=== PATIENT | male | born 1955 | race Caucasian/White ===

== ENCOUNTER 2019-02-10 07:40 | Inpatient (IN) ==
[2019-02-10 08:07] LABS: Basophils # (auto) 0.03 K/uL (0-0.2); Basophils % (auto) 0.5 %; Eosinophils # (auto) 0.08 K/uL (0-0.5); Eosinophils % (auto) 1.3 %; Hematocrit (blood only) 40.4 % (42-52); Hemoglobin 13.3 g/dL (14.0-18.0); Immature Granulocytes # (auto) 0.01 K/uL (0.00-0.02); Immature Granulocytes % (auto) 0.2 %; Lymphocytes % (auto) 25.3 %; Mean Corpuscular Hgb Conc 32.9 g/dL (32-36); Mean Corpuscular Volume 85.1 fL (80-100); Monocytes # (auto) 0.41 K/uL (0.11-0.59); Monocytes % (auto) 6.9 %; Neutrophils % (auto) 65.8 %; Platelet Count 135 K/uL (130-400); RDW Coefficient of Variation 13.7 % (11.5-14.5); Red Blood Count 4.75 M/uL (4.7-6.1); White Blood Count 5.93 K/uL (4.8-10.8)
[2019-02-10 08:24] LABS: INR 1.1 (0.9-1.1); Partial Thromboplastin Ratio 0.9; Partial Thromboplastin Time 23.6 Seconds (21.0-31.0); Prothrombin Time 11.1 Seconds (9.0-12.0)
--- NOTE | 2019-02-10 08:27 | XRay Report ---
SINGLE VIEW CHEST CLINICAL HISTORY: Dyspnea. FINDINGS: An AP, portable, upright chest radiograph is obtained. No prior studies are available for c omparison at the time of dictation. The examination is degraded by portable technique and apical lord otic positioning. The heart is enlarged and there is atherosclerotic calcification of the thoracic a mike. There is pulmonary vascular congestion. Bibasilar atelectasis is noted. No airspace consolidati on or large pleural effusion is identified. No pneumothorax is seen. The skeletal structures are oste openic. The bony thorax is grossly intact. IMPRESSION: Cardiomegaly with evidence of mild congestive failure. Electronically signed by: Abelino Marcos M.D. 02/10/2019 8:26 AM
[2019-02-10 08:31] LABS: Albumin Level 3.8 gm/dl (3.4-5.0); BUN Creatinine Ratio 12.4 (10-20); Calcium 9.7 mg/dl (8.5-10.1); Creatinine Clr Calc Pharmacy 97.5 ml/min; Est GFR (African American) 80.3; Est GFR (Non-African American) 69.3; Potassium 3.9 mmol/L (3.5-5.1)
[2019-02-10] MEDS ORDERED: dilTIAZem HCl 5 MG/ML 5 ML VIAL IV STA (08:35)
[2019-02-10 08:39] LABS: D Dimer 850 ug/L FEU (0-500)
[2019-02-10] MEDS ORDERED: ASPIRIN 81 MG CHEW PO STA (08:41)
[2019-02-10] MEDS ORDERED: dilTIAZem HCl 125 MG in DEXTROSE 5% 100 ML IV SCH (08:45)
[2019-02-10 08:46] LABS: Bilirubin,Total 0.8 mg/dl (0.2-1); Globulin 3.7 gm/dl (2.5-4.0); Total Protein 7.5 gm/dl (6.4-8.2); Troponin I 0.11 ng/ml (0-0.045)
--- NOTE | 2019-02-10 08:47 | Emergency Department Note ---
History of Present Illness General Chief complaint: Shortness of Breath/Dyspnea Stated complaint: SHORTNESS OF BREATH Time Seen by Provider: 02/10/19 07:47 History of Present Illness Maximum Pain Intensity: 1 64-year-old male who presents the emergency department with complaint of a 3-wee k history of shortness of breath, chest tightness, dizziness, nonproductive cough, diaphoresis and not feeling well. The patient reports that he had a myocardial infarction in August 2003, and did require a stent. The patient did initially follow with a meteorological technician near [place], but currently is being managed by his family doctor. He reports that he only takes his heart medicine every other day because of affordability issues. The patient does take a baby aspirin daily. Patient has other significant risk factors of smoking, hypertension and hypercholesterolemia. He also reports a strong family history of valvular heart disease. In addition to the above symptoms, the patient has also had 2 pillow orthopnea. He has not noticed any swelling of the lower extremities. The patient reports that his chest tightness illness of breath seems to help with belching. The patient currently rates his discomfort a 1 out of 10. Home Medications Home Medications Medication Instructions Recorded Confirmed Type aspirin 81 mg PO QAM 02/10/19 02/10/19 History ezetimibe 10 mg PO QAM 02/10/19 02/10/19 History metoprolol tartrate 50 mg PO QAM 02/10/19 02/10/19 History ramipril 2.5 mg PO QAM 02/10/19 02/10/19 History simvastatin 80 mg PO QAM 02/10/19 02/10/19 History tamsulosin 0.4 mg PO QAM 02/10/19 02/10/19 History Allergies Allergy/AdvReac Type Severity Reaction Status Date / Time morphine AdvReac Severe Nausea/vomi Unverified 02/10/19 14:16 ting Past Med/Surg History Medical History Coronary artery disease Hyperlipidemia Hypertension Myocardial infarction Surgical History History of heart artery stent Family History Other Heart disease Social History Preferred Language: Mauritian Communication Ability: Effective Building Equipment Operator Required: No Beliefs That Will Affect Care: None marital status: / Current Living Situation: Family Current Living Situation Comment: cares for 2 daughters, high school age, and older current occupational status: employed 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 Other Information That Helps Us Care for You: No Feels Safe at Home: Yes Safety Concerns: Feels Safe At This Time Smoking Status: Current every day smoker Tobacco Type: cigarettes packs per day: 1 Cigarettes Per Day: 20 Do You Dip or Chew Tobacco: No Second Hand Exposure: No Tobacco Cessation Education Requested by Patient: No Hx Alcohol Use: No Hx Substance Use: No Childhood Exposure to Second-Hand Smoke: No Other Diet Comment: No unexpected weight gain or weight loss during the last year during the past year weight has: remained stable Review of Systems HEENT: Denies visual problems, hearing loss, tinnitus. Denies difficulty swallowing or oral lesions. PULMONARY: Reports nonproductive cough and shortness of breath without sputum production or hemoptysis. CARDIOVASCULAR: Reports chest tightness, palpitations, mild dyspnea on exertion and orthopnea. Denies any peripheral edema. GASTROINTESTINAL: Denies diarrhea, constipation, nausea, vomiting, or abdominal pain. GENITOURINARY: Denies dysuria, frequency, urgency or nocturia. NEUROLOGIC: Denies history of epilepsy, CVA, TIA or chronic headaches. MUSCULOSKELETAL: Denies history of joint tenderness/swelling. SKIN: Denies rashes or lesions. PSYCHIATRIC: Denies history of depression or mental illness. ENDOCRINE: Denies history of diabetes or thyroid disorders. Physical Exam Vital Signs Vital Signs - 24 hr 02/10/19 07:43 02/10/19 07:54 02/10/19 07:55 Temperature 36.4 C L Temperature Source Oral Sepsis Recent Fever Within 48 Hours No Sepsis New/Unexplained Change in Mental Status No Sepsis Action Taken by Nursing No Action Required Pulse Rate 85 161 H 142 H Pulse Rate [Apical] Pulse Rate from SpO2 Sensor 98 H 86 Pulse Rhythm Pulse Rhythm [Apical] Pulse Strength [Apical] Respiratory Rate 18 17 20 Respiratory Effort / Characteristics Respiratory Depth Respiratory Pattern Blood Pressure 148/101 H 139/101 H Blood Pressure [Left Arm] Blood Pressure Mean 116 113 Blood Pressure Mean [Left Arm] Blood Pressure Position [Left Arm] Pulse Oximetry 96 94 94 Oxygen Delivery Method Room Air Oxygen Flow Rate 02/10/19 07:56 02/10/19 07:58 02/10/19 08:00 Temperature Temperature Source Sepsis Recent Fever Within 48 Hours Sepsis New/Unexplained Change in Mental Status Sepsis Action Taken by Nursing Pulse Rate 156 H 143 H Pulse Rate [Apical] 156 H Pulse Rate from SpO2 Sensor 108 H Pulse Rhythm Irregular Pulse Rhythm [Apical] Irregular Pulse Strength [Apical] Normal Respiratory Rate 18 18 20 Respiratory Effort / Characteristics Non-Labored Spontaneous Respiratory Depth Normal Respiratory Pattern Regular Blood Pressure Blood Pressure [Left Arm] 139/101 H Blood Pressure Mean Blood Pressure Mean [Left Arm] 113 Blood Pressure Position [Left Arm] Lying Pulse Oximetry 94 94 94 Oxygen Delivery Method Room Air Room Air Oxygen Flow Rate 02/10/19 08:01 02/10/19 08:15 02/10/19 08:30 Temperature Temperature Source Sepsis Recent Fever Within 48 Hours Sepsis New/Unexplained Change in Mental Status Sepsis Action Taken by Nursing Pulse Rate 142 H 128 H 141 H Pulse Rate [Apical] 142 H Pulse Rate from SpO2 Sensor 81 118 H 92 H Pulse Rhythm Pulse Rhythm [Apical] Irregular Pulse Strength [Apical] Normal Respiratory Rate 23 20 18 Respiratory Effort / Characteristics Non-Labored Spontaneous Respiratory Depth Normal Respiratory Pattern Regular Blood Pressure 135/107 H 138/101 H Blood Pressure [Left Arm] 135/107 H Blood Pressure Mean 116 113 Blood Pressure Mean [Left Arm] 116 Blood Pressure Position [Left Arm] Lying Pulse Oximetry 93 96 96 Oxygen Delivery Method Room Air Oxygen Flow Rate 02/10/19 08:43 02/10/19 08:45 02/10/19 09:01 Temperature Temperature Source Sepsis Recent Fever Within 48 Hours Sepsis New/Unexplained Change in Mental Status Sepsis Action Taken by Nursing Pulse Rate 116 H 109 H Pulse Rate [Apical] 141 H Pulse Rate from SpO2 Sensor 99 H 96 H Pulse Rhythm Pulse Rhythm [Apical] Irregular Pulse Strength [Apical] Normal Respiratory Rate 12 13 18 Respiratory Effort / Characteristics Non-Labored Spontaneous Respiratory Depth Normal Respiratory Pattern Regular Blood Pressure 119/90 Blood Pressure [Left Arm] 138/101 H Blood Pressure Mean 99 Blood Pressure Mean [Left Arm] 113 Blood Pressure Position [Left Arm] Lying Pulse Oximetry 92 92 96 Oxygen Delivery Method Room Air Oxygen Flow Rate 02/10/19 09:10 02/10/19 09:14 02/10/19 09:15 Temperature Temperature Source Sepsis Recent Fever Within 48 Hours Sepsis New/Unexplained Change in Mental Status Sepsis Action Taken by Nursing Pulse Rate 113 H 107 H 126 H Pulse Rate [Apical] Pulse Rate from SpO2 Sensor 102 H 98 H Pulse Rhythm Pulse Rhythm [Apical] Pulse Strength [Apical] Respiratory Rate 13 12 23 Respiratory Effort / Characteristics Respiratory Depth Respiratory Pattern Blood Pressure 124/97 Blood Pressure [Left Arm] Blood Pressure Mean 106 Blood Pressure Mean [Left Arm] Blood Pressure Position [Left Arm] Pulse Oximetry 92 90 Oxygen Delivery Method Oxygen Flow Rate 02/10/19 09:22 02/10/19 09:30 02/10/19 09:31 Temperature Temperature Source Sepsis Recent Fever Within 48 Hours Sepsis New/Unexplained Change in Mental Status Sepsis Action Taken by Nursing Pulse Rate 108 H 106 H 103 H Pulse Rate [Apical] Pulse Rate from SpO2 Sensor 99 H 95 H 86 Pulse Rhythm Pulse Rhythm [Apical] Pulse Strength [Apical] Respiratory Rate 19 19 14 Respiratory Effort / Characteristics Respiratory Depth Respiratory Pattern Blood Pressure 104/74 138/98 Blood Pressure [Left Arm] Blood Pressure Mean 84 111 Blood Pressure Mean [Left Arm] Blood Pressure Position [Left Arm] Pulse Oximetry 88 L 94 94 Oxygen Delivery Method Room Air Nasal Cannula Nasal Cannula Oxygen Flow Rate 2 2 02/10/19 09:36 02/10/19 09:45 02/10/19 09:46 Temperature Temperature Source Sepsis Recent Fever Within 48 Hours Sepsis New/Unexplained Change in Mental Status Sepsis Action Taken by Nursing Pulse Rate 115 H 98 H Pulse Rate [Apical] 111 H Pulse Rate from SpO2 Sensor 96 H 97 H Pulse Rhythm Pulse Rhythm [Apical] Irregular Pulse Strength [Apical] Normal Respiratory Rate 14 11 L 15 Respiratory Effort / Characteristics Non-Labored Spontaneous Respiratory Depth Normal Respiratory Pattern Regular Blood Pressure 143/108 H Blood Pressure [Left Arm] 138/98 Blood Pressure Mean 119 Blood Pressure Mean [Left Arm] 111 Blood Pressure Position [Left Arm] Lying Pulse Oximetry 94 90 90 Oxygen Delivery Method Nasal Cannula Nasal Cannula Nasal Cannula Oxygen Flow Rate 2 2 2 02/10/19 09:47 02/10/19 10:00 02/10/19 10:01 Temperature Temperature Source Sepsis Recent Fever Within 48 Hours Sepsis New/Unexplained Change in Mental Status Sepsis Action Taken by Nursing Pulse Rate 100 H 102 H 109 H Pulse Rate [Apical] Pulse Rate from SpO2 Sensor 84 97 H 95 H Pulse Rhythm Pulse Rhythm [Apical] Pulse Strength [Apical] Respiratory Rate 11 L 14 14 Respiratory Effort / Characteristics Respiratory Depth Respiratory Pattern Blood Pressure 145/103 H Blood Pressure [Left Arm] Blood Pressure Mean 117 Blood Pressure Mean [Left Arm] Blood Pressure Position [Left Arm] Pulse Oximetry 94 94 91 Oxygen Delivery Method Nasal Cannula Nasal Cannula Room Air Oxygen Flow Rate 2 2 02/10/19 10:15 02/10/19 10:16 02/10/19 10:30 Temperature Temperature Source Sepsis Recent Fever Within 48 Hours Sepsis New/Unexplained Change in Mental Status Sepsis Action Taken by Nursing Pulse Rate 111 H 119 H 89 Pulse Rate [Apical] Pulse Rate from SpO2 Sensor 86 87 85 Pulse Rhythm Pulse Rhythm [Apical] Pulse Strength [Apical] Respiratory Rate 19 12 17 Respiratory Effort / Characteristics Respiratory Depth Respiratory Pattern Blood Pressure 147/71 H Blood Pressure [Left Arm] Blood Pressure Mean 96 Blood Pressure Mean [Left Arm] Blood Pressure Position [Left Arm] Pulse Oximetry 90 94 94 Oxygen Delivery Method Room Air Room Air Room Air Oxygen Flow Rate 02/10/19 10:32 02/10/19 10:47 02/10/19 10:48 Temperature Temperature Source Sepsis Recent Fever Within 48 Hours Sepsis New/Unexplained Change in Mental Status Sepsis Action Taken by Nursing Pulse Rate 85 104 H 102 H Pulse Rate [Apical] Pulse Rate from SpO2 Sensor 78 97 H 89 Pulse Rhythm Pulse Rhythm [Apical] Pulse Strength [Apical] Respiratory Rate 7 L 18 16 Respiratory Effort / Characteristics Respiratory Depth Respiratory Pattern Blood Pressure 129/98 128/98 Blood Pressure [Left Arm] Blood Pressure Mean 108 108 Blood Pressure Mean [Left Arm] Blood Pressure Position [Left Arm] Pulse Oximetry 94 90 91 Oxygen Delivery Method Room Air Room Air Room Air Oxygen Flow Rate 02/10/19 11:01 02/10/19 11:16 02/10/19 11:31 Temperature Temperature Source Sepsis Recent Fever Within 48 Hours Sepsis New/Unexplained Change in Mental Status Sepsis Action Taken by Nursing Pulse Rate 119 H 105 H 94 H Pulse Rate [Apical] Pulse Rate from SpO2 Sensor 125 H 79 107 H Pulse Rhythm Pulse Rhythm [Apical] Pulse Strength [Apical] Respiratory Rate 24 9 L 14 Respiratory Effort / Characteristics Respiratory Depth Respiratory Pattern Blood Pressure 152/97 H 101/84 143/107 H Blood Pressure [Left Arm] Blood Pressure Mean 115 89 119 Blood Pressure Mean [Left Arm] Blood Pressure Position [Left Arm] Pulse Oximetry 92 90 94 Oxygen Delivery Method Oxygen Flow Rate 02/10/19 11:46 02/10/19 12:01 02/10/19 12:16 Temperature Temperature Source Sepsis Recent Fever Within 48 Hours Sepsis New/Unexplained Change in Mental Status Sepsis Action Taken by Nursing Pulse Rate 91 H 103 H 87 Pulse Rate [Apical] Pulse Rate from SpO2 Sensor 97 H 91 H 74 Pulse Rhythm Pulse Rhythm [Apical] Pulse Strength [Apical] Respiratory Rate 18 12 4 L Respiratory Effort / Characteristics Respiratory Depth Respiratory Pattern Blood Pressure 116/84 107/78 99/80 L Blood Pressure [Left Arm] Blood Pressure Mean 94 87 86 Blood Pressure Mean [Left Arm] Blood Pressure Position [Left Arm] Pulse Oximetry 90 86 L 92 Oxygen Delivery Method Oxygen Flow Rate 02/10/19 12:18 02/10/19 12:24 02/10/19 12:31 Temperature Temperature Source Sepsis Recent Fever Within 48 Hours Sepsis New/Unexplained Change in Mental Status Sepsis Action Taken by Nursing Pulse Rate 86 98 H Pulse Rate [Apical] 91 H Pulse Rate from SpO2 Sensor 81 85 Pulse Rhythm Pulse Rhythm [Apical] Pulse Strength [Apical] Respiratory Rate 16 10 L 15 Respiratory Effort / Characteristics Respiratory Depth Respiratory Pattern Blood Pressure 99/80 L 133/103 H Blood Pressure [Left Arm] 99/80 L Blood Pressure Mean 86 113 Blood Pressure Mean [Left Arm] 86 Blood Pressure Position [Left Arm] Pulse Oximetry 93 91 93 Oxygen Delivery Method Room Air Oxygen Flow Rate 02/10/19 12:46 02/10/19 13:00 02/10/19 13:25 Temperature 36.5 C Temperature Source Oral Sepsis Recent Fever Within 48 Hours Sepsis New/Unexplained Change in Mental Status Sepsis Action Taken by Nursing Pulse Rate 96 H 96 H Pulse Rate [Apical] 92 H Pulse Rate from SpO2 Sensor 84 Pulse Rhythm Pulse Rhythm [Apical] Regular Pulse Strength [Apical] Normal Respiratory Rate 18 18 16 Respiratory Effort / Characteristics Non-Labored Respiratory Depth Normal Respiratory Pattern Regular Blood Pressure 117/80 117/80 Blood Pressure [Left Arm] 143/95 H Blood Pressure Mean 92 Blood Pressure Mean [Left Arm] 111 Blood Pressure Position [Left Arm] Sitting Pulse Oximetry 89 L 89 L 93 Oxygen Delivery Method Room Air Room Air Oxygen Flow Rate CONSTITUTIONAL: Healthy and well nourished. Alert and oriented X 3. Patient d oes not appear in any acute distress. HEENT: Normocephalic, atraumatic. Pupils equal, round and reactive. Ears and nares are clear. No scleral icterus or conjunctival injection/pallor. NECK: Full active range of motion without discomfort. No JVD or carotid bruits. LYMPHATICS: No cervical chain adenopathy. RESPIRATORY: Clear to auscultation bilaterally with no wheezing, crackles, rhonchi or stridor. CARDIOVASCULAR: Tachycardic irregular rhythm with no murmurs, rubs or gallops. GASTROINTESTINAL: Bowel sounds present in all quadrants. Soft and nontender to palpation. MUSCULOSKELETAL: Full range of motion of all joints without discomfort. INTEGUMENTARY: No rash or other significant dermatologic conditions noted. HEMATOLOGIC: No ecchymosis or petechiae. PSYCHIATRIC: Positive affect. NEUROLOGIC: Cranial nerves II-XII grossly intact. No focal neurologic deficits noted. Course Patient history and physical exam were performed. Nurse's notes were reviewed. Vital signs were reviewed. Initial pulse in triage was 109 bpm. In his room, an ECG was performed, showing A. fib with a rapid ventricular response at 145 bpm. BP was initially elevated at 148/101. I was contacted by nursing staff. Immediate reevaluation was performed, showing that the patient's heart rate was in the 130 to lower 150s. The patient was administered aspirin 324 mg chew. The patient was also discussed and evaluated by Dr. Stauffer, ED attending physic benedict. The patient was administered a Cardizem 10 mg bolus. This reduced his heart rate to the 100s to 110s. Initial ECG did not show any ST elevations. Repeat ECG after the Cardizem bolus showed a rate of 110 bpm without any concerning ST elevation or ischemic pattern. Review of labs shows an elevated d-dimer of 850, and troponin of 0.11. Coagulation studies were otherwise normal. CMP and TSH are normal. Chest CT angiography was performed, showing no evidence for pulmonary emboli. Prior to chest CT angiography, the case was further discussed with Abelino Almanzar PA-C working with Dr. Luis Leung, not in any physician group hospitalist. Pending CT angiography results, the patient will likely be started on a heparin drip weight-based protocol, and undergo cardiology consultation. Please see dictations for further treatment and final disposition. Prior to transfer of care, the patient denied any chest pain, shortness of breath or other concerning symptoms. Administered Medications Aspirin (Ecotrin Ectab) 81 mg PO QAM REPLACED BY [facility] Stop: 03/12/19 14:59 Last Admin: 02/10/19 16:14 Dose: 81 mg Documented by: [id number] Enalapril Maleate (Vasotec) 10 mg PO DAILY REPLACED BY [facility] Stop: 03/12/19 14:59 Last Admin: 02/10/19 16:14 Dose: 10 mg Documented by: [id number] Heparin Sodium/Dextrose (Heparin Sodium/Dextrose) 25,000 units in 500 mls @ 37 mls/hr IV .[id number] REPLACED BY [facility]; Protocol Stop: 03/12/19 14:44 Last Admin: 02/10/19 14:40 Dose: 1,850 units/hr, 37 mls/hr Documented by: [id number] Cosigned by: [id number] Metoprolol Tartrate (Lopressor) 25 mg PO Q8 NIKO Stop: 03/12/19 15:29 Last Admin: 02/10/19 17:08 Dose: 25 mg Documented by: [id number] Tamsulosin HCl (Flomax) 0.4 mg PO QAM REPLACED BY [facility] Stop: 03/12/19 14:59 Last Admin: 02/10/19 16:15 Dose: 0.4 mg Documented by: [id number] Discontinued Medications Aspirin (Aspirin Chew) 324 mg PO NOW STA Stop: 02/10/19 08:42 Last Admin: 02/10/19 08:43 Dose: 324 mg Documented by: [id number] Diltiazem HCl (Cardizem) 20 mg IV NOW STA Stop: 02/10/19 08:36 Last Admin: 02/10/19 08:41 Dose: 20 mg Documented by: [id number] Cosigned by: [id number] Ezetimibe (Zetia) 10 mg PO QAM REPLACED BY [facility] Stop: 03/12/19 14:59 Last Admin: 02/10/19 16:49 Dose: Not Given Documented by: [id number] Diltiazem HCl 125 mg/ Dextrose 125 mls @ 5 mls/hr IV .Q24H REPLACED BY [facility]; Protocol Stop: 03/12/19 08:44 Last Titration: 02/10/19 17:15 Dose: 0 mg/hr, 0 mls/hr Documented by: [id number] Admin: 02/10/19 09:20 Dose: 5 mg/hr, 5 mls/hr Documented by: [id number] Cosigned by: [id number] Furosemide 40 mg/ Syringe 4 mls @ 4 mls/min IV ONE ONE Stop: 02/10/19 16:16 Last Admin: 02/10/19 17:08 Dose: 4 mls/min Documented by: [id number] Ioversol (Optiray 320 100ml) 119 ml IV ONCE PRN PRN Reason: Interaction Checking Stop: 02/14/19 09:01 Last Admin: 02/10/19 09:02 Dose: 119 ml Documented by: [id number] Metoprolol Tartrate (Lopressor) 50 mg PO [facility] Stop: 03/12/19 14:59 Last Admin: 02/10/19 15:55 Dose: Not Given Documented by: [id number] Simvastatin (Zocor) 80 mg PO [facility] Stop: 03/12/19 14:59 Last Admin: 02/10/19 16:49 Dose: Not Given Documented by: [id number] Medical Decision Making Medical Records Attestation: I reviewed the patient's medical records. Home Medications Current Medication List: was personally reviewed by me Laboratory Data Attestation: I reviewed the patient's lab results. Result diagrams: 02/10/19 07:50 02/10/19 07:50 Lab Results 02/10/19 02/10/19 02/10/19 Range/Units 07:50 07:50 07:50 WBC 5.93 (4.8-10.8) K/uL RBC 4.75 (4.7-6.1) M/uL Hgb 13.3 L (14.0-18.0) g/dL Hct 40.4 L (42-52) % MCV 85.1 (80-100) fL MCH 28.0 (25-34) pg MCHC 32.9 (32-36) g/dL RDW Std Deviation 42.0 (36.4-46.3) fL RDW Coeff of Micheal 13.7 (11.5-14.5) % Plt Count 135 (130-400) K/uL MPV 10.0 (7.4-10.4) fL Immature Gran % (Auto) 0.2 % Neut % (Auto) 65.8 % Lymph % (Auto) 25.3 % Atkinson % (Auto) 6.9 % Eos % (Auto) 1.3 % Baso % (Auto) 0.5 % Immature Gran # (Auto) 0.01 (0.00-0.02) K/uL Neut # (Auto) 3.90 (1.4-6.5) K/uL Lymph # (Auto) 1.50 (1.2-3.4) K/uL Atkinson # (Auto) 0.41 (0.11-0.59) K/uL Eos # (Auto) 0.08 (0-0.5) K/uL Baso # (Auto) 0.03 (0-0.2) K/uL PT 11.1 (9.0-12.0) Seconds INR 1.1 (0.9-1.1) APTT 23.6 (21.0-31.0) Seconds PTT Ratio 0.9 D-Dimer 850 H* (0-500) ug/L FEU Sodium 141 (136-145) mmol/L Potassium 3.9 (3.5-5.1) mmol/L Chloride 106 (98-107) mmol/L Carbon Dioxide 29 (21-32) mmol/L Anion Gap 6.0 (3-11) BUN 14 (7-18) mg/dl Creatinine 1.13 (0.6-1.4) mg/dl Est Cr Clr Drug Dosing 97.5 ml/min Est GFR ( Amer) 80.3 Est GFR (Non-Af Amer) 69.3 BUN/Creatinine Ratio 12.4 (10-20) Glucose 115 H (70-99) mg/dl Estimat Average Glucose mg/dl Hemoglobin A1c (4.5-5.6) % Calcium 9.7 (8.5-10.1) mg/dl Magnesium 2.0 (1.8-2.4) mg/dl Total Bilirubin 0.8 (0.2-1) mg/dl AST 29 (15-37) U/L ALT 42 (12-78) U/L Alkaline Phosphatase 77 (45-117) U/L Troponin I 0.110 H* (0-0.045) ng/ml NT-Pro-B Natriuret Pep (0-900) pg/ml Total Protein 7.5 (6.4-8.2) gm/dl Albumin 3.8 (3.4-5.0) gm/dl Globulin 3.7 (2.5-4.0) gm/dl Albumin/Globulin Ratio 1.0 (0.9-2) Triglycerides Cholesterol LDL Cholesterol, Calc VLDL Cholesterol, Calc HDL Cholesterol Cholesterol/HDL Ratio TSH 3.800 (0.300-4.500) uIu/ml 02/10/19 02/10/19 02/10/19 Range/Units 07:50 07:50 07:50 WBC (4.8-10.8) K/uL RBC (4.7-6.1) M/uL Hgb (14.0-18.0) g/dL Hct (42-52) % MCV (80-100) fL MCH (25-34) pg MCHC (32-36) g/dL RDW Std Deviation (36.4-46.3) fL RDW Coeff of Micheal (11.5-14.5) % Plt Count (130-400) K/uL MPV (7.4-10.4) fL Immature Gran % (Auto) % Neut % (Auto) % Lymph % (Auto) % Atkinson % (Auto) % Eos % (Auto) % Baso % (Auto) % Immature Gran # (Auto) (0.00-0.02) K/uL Neut # (Auto) (1.4-6.5) K/uL Lymph # (Auto) (1.2-3.4) K/uL Atkinson # (Auto) (0.11-0.59) K/uL Eos # (Auto) (0-0.5) K/uL Baso # (Auto) (0-0.2) K/uL PT (9.0-12.0) Seconds INR (0.9-1.1) APTT (21.0-31.0) Seconds PTT Ratio D-Dimer (0-500) ug/L FEU Sodium (136-145) mmol/L Potassium (3.5-5.1) mmol/L Chloride (98-107) mmol/L Carbon Dioxide (21-32) mmol/L Anion Gap (3-11) BUN (7-18) mg/dl Creatinine (0.6-1.4) mg/dl Est Cr Clr Drug Dosing ml/min Est GFR ( Amer) Est GFR (Non-Af Amer) BUN/Creatinine Ratio (10-20) Glucose (70-99) mg/dl Estimat Average Glucose 137 mg/dl Hemoglobin A1c 6.4 H (4.5-5.6) % Calcium (8.5-10.1) mg/dl Magnesium (1.8-2.4) mg/dl Total Bilirubin (0.2-1) mg/dl AST (15-37) U/L ALT (12-78) U/L Alkaline Phosphatase (45-117) U/L Troponin I (0-0.045) ng/ml NT-Pro-B Natriuret Pep 1201 H (0-900) pg/ml Total Protein (6.4-8.2) gm/dl Albumin (3.4-5.0) gm/dl Globulin (2.5-4.0) gm/dl Albumin/Globulin Ratio (0.9-2) Triglycerides Cancelled Cholesterol Cancelled LDL Cholesterol, Calc Cancelled VLDL Cholesterol, Calc Cancelled HDL Cholesterol Cancelled Cholesterol/HDL Ratio Cancelled TSH (0.300-4.500) uIu/ml Imaging Data Attestation: I personally reviewed and interpreted this imaging study as follows: My Impression: My interpretation of an initial portable chest x-ray shows cardiomegaly with mild congestive failure. No consolidations or pneumothorax appreciated. Chest CT angiography of the chest shows no evidence for pulmonary emboli. Additional findings of cardiomegaly with congestive heart failure, lateral pleural effusions, small pericardial effusion and mild mediastinal and hilar lymphadenopathy were also seen. Radiologist reports were reviewed. Radiologist's Impression: SINGLE VIEW CHEST CLINICAL HISTORY: Dyspnea. FINDINGS: An AP, portable, upright chest radiograph is obtained. No prior studies are available for comparison at the time of dictation. The examination is degraded by portable technique and apical lordotic positioning. The heart is enlarged and there is atherosclerotic calcification of the thoracic aorta. There is pulmonary vascular congestion. Bibasilar atelectasis is noted. No airspace consolidation or large pleural effusion is identified. No pneumothorax is seen. The skeletal structures are osteopenic. The bony thorax is grossly intact. IMPRESSION: Cardiomegaly with evidence of mild congestive failure. CT ANGIOGRAM OF THE CHEST CLINICAL HISTORY: Atrial fibrillation with rapid ventricular return. Elevated d- dimer. COMPARISON STUDY: Chest x-ray dated 02/10/2019. TECHNIQUE: Following the IV administration of 119 cc of Optiray 320, CT angiogram of the chest was performed from the upper abdomen to the thoracic inlet utilizing the pulmonary embolus protocol. Images are reviewed in the axial, sagittal, and coronal planes. 3-D MIPS images are created and assessed. IV contrast was administered without complication. A dose lowering technique was utilized adhering to the principles of ALARA. CT DOSE: 926.14 mGy.cm FINDINGS: Thyroid: Imaged portions of the thyroid gland are normal in size and attenuation. Thoracic aorta: The thoracic aorta is normal in caliber and demonstrates standard 3-vessel arch anatomy. The thoracic aorta is not well opacified. Pulmonary vasculature: The pulmonary trunk is normal in caliber. There are no filling defects identified in main, lobar, or segmental pulmonary branches to suggest pulmonary embolus. Heart: The heart is enlarged and there is a small pericardial effusion. The coronary arteries are densely calcified. Lungs and pleural spaces: There are small pleural effusions, right larger than left with associated atelectasis. There is mild diffuse peribronchial thickening, as well as diffuse intralobular septal thickening. These findings indicate congestive failure. The trachea and central airways are clear. No airspace consolidation is seen typical for pneumonia. Mediastinum: There are numerous mildly enlarged mediastinal lymph nodes. Peritracheal nodes measure up to 13 mm in short axis. A subcarinal node measures up to 15 mm in short axis. Starr: There are prominent hilar lymph nodes which measure up to 12 mm in short axis. Axillae: There is no axillary lymphadenopathy. Upper abdomen: Partially visualized upper abdominal viscera is within normal limits. Skeletal structures: The skeletal structures are osteopenic. Mild degenerative change is noted throughout the thoracic spine. No lytic or blastic bony lesions are seen. IMPRESSION: 1. There is no evidence of pulmonary embolus in the main, lobar, or segmental pulmonary arteries. 2. Cardiomegaly with evidence of congestive failure. 3. Right larger than left pleural effusions with associated atelectasis. 4. Mildly enlarged mediastinal and hilar lymph nodes are nonspecific and likely on a reactive basis. 5. Small pericardial effusion. ECG Data Attestation: I personally reviewed and interpreted this ECG as follows: Indication: chest pain, SOB/dyspnea and weakness Rate (beats per minute): 145 Rhythm: atrial fibrillation Findings: + other (Rapid ventricular response) Comparison ECG Date: no prior available Additional Comments: Repeat ECG after the Cardizem 10 mg bolus showed an improved rate of [address] elevations or T wave inversions. Blood Pressure Blood Pressure Findings: Elevated blood pressure (Subsequent blood pressure measurements did normalize) MDM Narrative Patient presents to the emergency department with complaint of chest tightness, shortness of breath and fatigue. His ECG does show evidence for new onset A. fib with RVR pattern. The patient was treated emergently with diltiazem with improvement of his rate and symptoms. Additional work-up shows evidence for elevated troponin and d-dimer. Fortunately chest CT angiography did not show evidence for pulmonary emboli, but imaging is consistent with mild pericardial effusion, congestive heart failure and mediastinal lymphadenopathy. The patient was previously on intermittent beta-blockers, but has not taken them on a regular basis. The patient did go PCI and 2004 during an acute AK, however those details are not available for review. I sSuspect that the patient will require cardiac catheterization while in the hospital. Patient does have other risk factors including hyperlipidemia, hypertension and tobacco abuse. Impression & Plan Atrial fibrillation with RVR, Acute systolic (congestive) heart failure, CAD (coronary artery disease), Cardiomyopathy, Hypertension, Hyperlipidemia, Tobacco abuse Critical Care Time Critical Care Time: Yes Total Critical Care Time: 35 I have personally possibly 35 minutes of critical care time in the direct management of this patient, including during administration of Cardizem IV. This includes bedside care, interpretation of diagnostic studies, and testing, discussion with consultants, patient, and other required patient management activities. This 35 minutes is in excess of all separately billable procedures. Discharge Plan Visit Data *Final* Discharge Date/Time: 02/10/19 13:00 Chief Complaint: Shortness of Breath/Dyspnea Stated Complaint: SHORTNESS OF BREATH ED Provider: Aj Stauffer ED Midlevel Provider: Juventino Holland Discharge Problem: Atrial fibrillation with RVR, Acute systolic (congestive) heart failure, CAD (coronary artery disease), Cardiomyopathy, Hypertension, Hyperlipidemia, Tobacco abuse Patient Disposition: Admitted As Inpatient Discharge Instructions Interventions: ED Discharge Assessment Last Done: 02/10/19 13:00
[2019-02-10] MEDS ORDERED: IOVERSOL 100ml IV PRN (09:02)
--- NOTE | 2019-02-10 09:17 | CT Scan Report ---
CT ANGIOGRAM OF THE CHEST CLINICAL HISTORY: Atrial fibrillation with rapid ventricular return. Elevated d-dimer. COMPARISON STUDY: Chest x-ray dated 02/10/2019. TECHNIQUE: Following the IV administration of 119 cc of Optiray 320, CT angiogram of the chest was pe rformed from the upper abdomen to the thoracic inlet utilizing the pulmonary embolus protocol. Images are reviewed in the axial, sagittal, and coronal planes. 3-D MIPS images are created and assessed. I V contrast was administered without complication. A dose lowering technique was utilized adhering to the principles of ALARA. CT DOSE: 926.14 mGy.cm FINDINGS: Thyroid: Imaged portions of the thyroid gland are normal in size and attenuation. Thoracic aorta: The thoracic aorta is normal in caliber and demonstrates standard 3-vessel arch anato my. The thoracic aorta is not well opacified. Pulmonary vasculature: The pulmonary trunk is normal in caliber. There are no filling defects identif ied in main, lobar, or segmental pulmonary branches to suggest pulmonary embolus. Heart: The heart is enlarged and there is a small pericardial effusion. The coronary arteries are den sely calcified. Lungs and pleural spaces: There are small pleural effusions, right larger than left with associated a telectasis. There is mild diffuse peribronchial thickening, as well as diffuse intralobular septal th ickening. These findings indicate congestive failure. The trachea and central airways are clear. No a irspace consolidation is seen typical for pneumonia. Mediastinum: There are numerous mildly enlarged mediastinal lymph nodes. Peritracheal nodes measure u p to 13 mm in short axis. A subcarinal node measures up to 15 mm in short axis. Starr: There are prominent hilar lymph nodes which measure up to 12 mm in short axis. Axillae: There is no axillary lymphadenopathy. Upper abdomen: Partially visualized upper abdominal viscera is within normal limits. Skeletal structures: The skeletal structures are osteopenic. Mild degenerative change is noted throug hout the thoracic spine. No lytic or blastic bony lesions are seen. IMPRESSION: 1. There is no evidence of pulmonary embolus in the main, lobar, or segmental pulmonary arteries. 2. Cardiomegaly with evidence of congestive failure. 3. Right larger than left pleural effusions with associated atelectasis. 4. Mildly enlarged mediastinal and hilar lymph nodes are nonspecific and likely on a reactive basis. 5. Small pericardial effusion. Electronically signed by: Abelino Marcos M.D. 02/10/2019 9:16 AM
--- NOTE | 2019-02-10 12:01 | History & Physical Report ---
Date of Service February 10, 2019 Assessment & Plan (1) Atrial fibrillation with RVR: New onset atrial fibrillation with RVR Received 10 mg of diltiazem in the ER Will start patient's home medication of metoprolol 50 mg p.o. twice daily Heparin drip weight-based protocol Echocardiogram Cardiology consult -appreciate Dr. Buckley's input Monitor on telemetry (2) CAD (coronary artery disease): Prior history of NH with stent years ago Patient reports previous stress echo cardiogram with chemical challenge with no induced ischemia per his report Continue aspirin, metoprolol, statin, ezetimibe Monitor on telemetry (3) Hyperlipidemia: Continue home dose medication was admitted and atorvastatin Fasting lipid panel (4) Hypertension: Continue metoprolol tartrate 50 mg p.o. daily Monitor on telemetry (5) Morbid obesity: Weight 130.9 kg BMI 37.1 kg/m Discussed need for weight loss (6) Tobacco abuse: Per day smoker Smoking cessation consult placed (7) BPH (benign prostatic hyperplasia): Continue tamsulosin daily (8) DVT prophylaxis: Heparin drip weight-based protocol Ambulate as tolerated on telemetry Discussed case with Dr. Luis Leung. Please refer to his addendum for further recommendations. History of Present Illness Attending: Dr. Luis Leung This is a 64-year-old male who works at [employer]. He has a past medical history including previous NH with stent placement x1 vessel. He also has hyperlipidemia, BPH, morbid obesity. He follows with [facility] in [place]. He previously followed with cardiology after his stent placement in [facility] but due to multiple position changes only follows with his primary care physician. He is on aspirin, metoprolol, ezetimibe, atorvastatin, and tamsulosin which is scheduled for daily but patient takes every other day secondary to cost issues. The patient has a care through [facility]. The patient states that for the last 2-1/2 to 3 weeks he has had increasing shortness of breath with minimal exertion as well as some lightheadedness. He recently went to [facility] for an employee picnic and was significantly short of breath with walking only about 40 feet. He has no recent work-up in his last prior PCP appointment was in August of this year. He states that prior to that he had echocardiogram which was normal. He also states that he had a treadmill stress test but was unable to meet Jose protocol. He then had a chemical stress test which he reports was normal. He has had no chest pain with exertion or at rest. He is unaware of any palpitations or tachyarrhythmias. He has no prior history of arrhythmia. He has no family with history of arrhythmia. He denies any history of malignancy or other cardiac disease. He has no pulmonary disease. He has no recent travel or recent illness. He is a daily smoker and smokes approximately 1 pack/day of cigarettes. He has no ethanol use or other substance abuse. Primary Care Provider: Wilman Beach PA-C Allergies Allergy/AdvReac Type Severity Reaction Status Date / Time morphine AdvReac Severe Nausea/vomi Unverified 02/10/19 14:16 ting Home Medications Home Medications Medication Instructions Recorded Confirmed Type aspirin 81 mg PO QAM 02/10/19 02/10/19 History ezetimibe 10 mg PO QAM 02/10/19 02/10/19 History metoprolol tartrate 50 mg PO QAM 02/10/19 02/10/19 History ramipril 2.5 mg PO QAM 02/10/19 02/10/19 History simvastatin 80 mg PO QAM 02/10/19 02/10/19 History tamsulosin 0.4 mg PO QAM 02/10/19 02/10/19 History Past Med/Surg History Medical History Coronary artery disease Hyperlipidemia Hypertension Myocardial infarction Surgical History History of heart artery stent Family History Other Heart disease Social History Preferred Language: Nepali Communication Ability: Effective Tack Cutter Required: No Beliefs That Will Affect Care: None marital status: / Current Living Situation: Family Current Living Situation Comment: cares for 2 daughters, high school age, and older current occupational status: employed 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 Other Information That Helps Us Care for You: No Feels Safe at Home: Yes Safety Concerns: Feels Safe At This Time Smoking Status: Current every day smoker Tobacco Type: cigarettes packs per day: 1 Cigarettes Per Day: 20 Do You Dip or Chew Tobacco: No Second Hand Exposure: No Tobacco Cessation Education Requested by Patient: No Hx Alcohol Use: No Hx Substance Use: No Childhood Exposure to Second-Hand Smoke: No Other Diet Comment: No unexpected weight gain or weight loss during the last year during the past year weight has: remained stable Review of Systems Review of Systems: All systems reviewed & are unremarkable except as noted in HPI & below Physical Exam Physical Exam: GENERAL : No acute distress EYES: No icterus, gaze conjugate NOSE: No evidence of epistaxis MOUTH: No lesions or candidiasis NECK: Supple LUNGS: CTA B/L, no wheezes, rales or rhonchi CHEST: No tenderness to palpation. No ecchymosis or bruising. No paradoxical chest wall movement. HEART: Irregular, irregular, rate 102 ABDOMEN: Soft, NT, ND, BS Present. Protuberant EXTREMITIES: No LE edema, pedal pulses intact. No calf tenderness. No Homans sign NEURO: A&OX3. Pupils equal round and reactive to light. Strength equal and appropriate bilateral upper extremities. Toes downgoing bilaterally. No slurred speech. No facial droop. Tongue is midline. Results & Data Vital Signs (Past 12 Hours) Vital Signs Temp Pulse Pulse Resp BP BP Pulse Ox 02/10/19 11:31 94 H 14 143/107 H 94 02/10/19 11:16 105 H 9 L 101/84 90 02/10/19 11:01 119 H 24 152/97 H 92 02/10/19 10:48 102 H 16 128/98 91 02/10/19 10:47 104 H 18 90 02/10/19 10:32 85 7 L 129/98 94 02/10/19 10:30 89 17 94 02/10/19 10:16 119 H 12 147/71 H 94 02/10/19 10:15 111 H 19 90 02/10/19 10:01 109 H 14 145/103 H 91 02/10/19 10:00 102 H 14 94 02/10/19 09:47 100 H 11 L 94 02/10/19 09:46 98 H 15 143/108 H 90 02/10/19 09:45 115 H 11 L 90 02/10/19 09:36 111 H 14 138/98 94 02/10/19 09:31 103 H 14 138/98 94 02/10/19 09:30 106 H 19 94 02/10/19 09:22 108 H 19 104/74 88 L 02/10/19 09:15 126 H 23 90 02/10/19 09:14 107 H 12 124/97 92 02/10/19 09:10 113 H 13 02/10/19 09:01 141 H 18 138/101 H 96 02/10/19 08:45 109 H 13 92 02/10/19 08:43 116 H 12 119/90 92 02/10/19 08:30 141 H 18 138/101 H 96 02/10/19 08:15 128 H 20 96 02/10/19 08:01 142 H 142 H 23 135/107 H 135/107 H 93 02/10/19 08:00 143 H 20 94 02/10/19 07:58 156 H 18 94 02/10/19 07:56 156 H 18 139/101 H 94 02/10/19 07:55 142 H 20 139/101 H 94 02/10/19 07:54 161 H 17 94 02/10/19 07:43 36.4 C L 85 18 148/101 H 96 Laboratory Results 02/10/19 07:50 02/10/19 07:50 Abnormal lab results 02/10/19 02/10/19 02/10/19 Range/Units 07:50 07:50 07:50 Hgb 13.3 L (14.0-18.0) g/dL Hct 40.4 L (42-52) % D-Dimer 850 H* (0-500) ug/L FEU Glucose 115 H (70-99) mg/dl Troponin I 0.110 H* (0-0.045) ng/ml NT-Pro-B Natriuret Pep (0-900) pg/ml 02/10/19 Range/Units 07:50 Hgb (14.0-18.0) g/dL Hct (42-52) % D-Dimer (0-500) ug/L FEU Glucose (70-99) mg/dl Troponin I (0-0.045) ng/ml NT-Pro-B Natriuret Pep 1201 H (0-900) pg/ml Diagnostic Findings CT ANGIOGRAM OF THE CHEST CLINICAL HISTORY: Atrial fibrillation with rapid ventricular return. Elevated d- dimer. COMPARISON STUDY: Chest x-ray dated 02/10/2019. TECHNIQUE: Following the IV administration of 119 cc of Optiray 320, CT angiogram of the chest was performed from the upper abdomen to the thoracic inlet utilizing the pulmonary embolus protocol. Images are reviewed in the axial, sagittal, and coronal planes. 3-D MIPS images are created and assessed. IV contrast was administered without complication. A dose lowering technique was utilized adhering to the principles of ALARA. CT DOSE: 926.14 mGy.cm FINDINGS: Thyroid: Imaged portions of the thyroid gland are normal in size and attenuation. Thoracic aorta: The thoracic aorta is normal in caliber and demonstrates standard 3-vessel arch anatomy. The thoracic aorta is not well opacified. Pulmonary vasculature: The pulmonary trunk is normal in caliber. There are no filling defects identified in main, lobar, or segmental pulmonary branches to suggest pulmonary embolus. Heart: The heart is enlarged and there is a small pericardial effusion. The coronary arteries are densely calcified. Lungs and pleural spaces: There are small pleural effusions, right larger than left with associated atelectasis. There is mild diffuse peribronchial thickening, as well as diffuse intralobular septal thickening. These findings indicate congestive failure. The trachea and central airways are clear. No airsp ritchie consolidation is seen typical for pneumonia. Mediastinum: There are numerous mildly enlarged mediastinal lymph nodes. Peritracheal nodes measure up to 13 mm in short axis. A subcarinal node measures up to 15 mm in short axis. Starr: There are prominent hilar lymph nodes which measure up to 12 mm in short axis. Axillae: There is no axillary lymphadenopathy. Upper abdomen: Partially visualized upper abdominal viscera is within normal limits. Skeletal structures: The skeletal structures are osteopenic. Mild degenerative change is noted throughout the thoracic spine. No lytic or blastic bony lesions are seen. IMPRESSION: 1. There is no evidence of pulmonary embolus in the main, lobar, or segmental pulmonary arteries. 2. Cardiomegaly with evidence of congestive failure. 3. Right larger than left pleural effusions with associated atelectasis. 4. Mildly enlarged mediastinal and hilar lymph nodes are nonspecific and likely on a reactive basis. 5. Small pericardial effusion. Electronically signed by: Abelino Marcos M.D. 02/10/2019 9:16 AM Medications Administered Cardizem 10 mg Heparin drip ECG Additional Comments: ECG 10-Feb-2019 Vent. rate 110 BPM MN interval * ms QRS duration 98 ms QT/QTc 326/441 ms P-R-T axes * 59 -13 Atrial fibrillation with rapid ventricular response with premature ventricular or aberrantly conducted complexes Possible Inferior infarct (cited on or before 10-FEB-2019) Abnormal ECG When compared with ECG of 10-FEB-2019 07:51, (unconfirmed) No significant change was found Code Status & VTE Plan Code Status Level 1 full resuscitation VTE Prophylaxis Plan VTE Prophylaxis will be ordered: Yes Reason for no VTE mechanical prophylaxis: Treatment not indicated Supervising Physician Co-Signing Physician Notes I supervised Abelino Almanzar PA-C on this admission. I interviewed and examined the patient independently of him. The plan is as written in the note except for any following changes/exceptions: Seen with Dr. Rachel. Concern for acute systolic heart failure. Will treat rate with beta-jordan. Plan for diuresis and possible cath tomorrow if he is able to tolerate lying flat. PG Care Time/CCT Total # of Minutes Spent Total Time Spent with Patient: Total time spent is greater than 50% in coordination of care (as documented) at patient's floor/unit and/or counseling patient:
[2019-02-10 12:42] LABS: Estimated Average Glucose 137 mg/dl; Hemoglobin A1C 6.4 % (4.5-5.6)
[2019-02-10] MEDS ORDERED: ACETAMINOPHEN 325 MG TAB PO PRN (14:08)
[2019-02-10] MEDS ORDERED: ALUMINUM/MAGNESIUM SUSP 30 ML UDC PO PRN (14:08)
[2019-02-10] MEDS ORDERED: MAGNESIUM HYDROXIDE SUSP 30 ML UDC PO PRN (14:08)
[2019-02-10] MEDS ORDERED: NITROGLYCERIN SL 0.4 MG/TAB TAB SL PRN (14:08)
[2019-02-10] MEDS ORDERED: POLYETHYLENE (MIRALAX) 17 GM PACK PO PRN (14:08)
[2019-02-10] MEDS ORDERED: ONDANSETRON INJ 2 MG/ML 2 ML VIAL IV PRN (14:08)
[2019-02-10] MEDS ORDERED: Heparin IV Standard *NO* Bolus IV SCH (14:30)
[2019-02-10] MEDS: HEPARIN SODIUM/DEXTROSE 25,000 UNITS/500 ML BAG IV SCH (14:40)
[2019-02-10] MEDS ORDERED: EZETIMIBE 10 MG TABLET PO SCH (15:00)
[2019-02-10] MEDS ORDERED: SIMVASTATIN 80 MG TAB PO SCH (15:00)
[2019-02-10] MEDS ORDERED: METOPROLOL TARTRATE 50 MG TAB PO SCH (15:00)
[2019-02-10] MEDS: ENALAPRIL MALEATE 10 MG TAB PO SCH (16:14)
[2019-02-10] MEDS: ASPIRIN 81 MG ECTAB PO SCH (16:14)
[2019-02-10] MEDS: TAMSULOSIN HCL 0.4 MG CAP PO SCH (16:15)
[2019-02-10] MEDS ORDERED: FUROSEMIDE 40 MG in SYRINGE 0 ML IV ONE (16:15)
--- NOTE | 2019-02-10 16:16 | Cardiology Consultation ---
Date of Consultation February 10, 2019 Assessment & Plan (1) Atrial fibrillation with RVR: New diagnosis for him. We discussed the diagnosis in detail. His heart rate has been better controlled with beta-jordan. Agree with oral beta-jordan for now. We discussed the importance of taking his medications on a daily basis. He was adamant about not receiving cardioversion. We discussed importance of stroke risk reduction. Finances are a concern. Please involved care coordination to help choose anticoagulation that is affordable for him. For now, continue heparin drip. (2) Acute systolic (congestive) heart failure: He appears hypervolemic, with class 4 symptoms. Reduced LV systolic function on echo with formal review to follow. Would recommend metoprolol succinate in place of metoprolol tartrate upon discharge. Agree with AZAEL-inhibi tor. Would not likely use Entresto due to financial concerns as he was not able to afford his medications on a regular basis prior to this hospitalization. Recommend Lasix 40 mg IV x1. Would Re dose if he is not trending towards 1-2 L negative by morning. Low-sodium diet (discussed with him). Check daily weights and strict I&Os. He was reminded to have nursing staff measure his urine and also his oral intake. (3) CAD (coronary artery disease): He underwent PCI in [address] Details are not available. He had residual 40 and 60% stenotic lesions from what he can recall. He does have exertional chest tightness, concerning for angina. He has reduced LV systolic function. Recommend cardiac catheterization, considering right and left heart catheterization given his heart failure. Risks and benefits were discussed with him. He was made aware that CT surgery is not available at this facility. He is agreeable to undergo the procedure tomorrow. He is currently without chest discomfort. Continue aspirin 81 mg daily indefinitely. Recommend high- intensity statin therapy. Continue beta-jordan. (4) Mitral regurgitation: ECHO be formally reviewed. This may improve with diuresis. Further recommendations to follow. (5) Cardiomyopathy: Could be related to tachycardia but also given history of multivessel CAD with prior PCI and otherwise moderate CAD in 2003, ischemic etiology is also possibility. Given his presentation, exertional symptoms of both chest tightness and dyspnea, with new onset heart failure and mildly elevated troponin, cardiac catheterization recommended. Agree with AZAEL-inhibitor and beta-jordan however would change to metoprolol succinate on discharge. Diltiazem drip has been discontinued. (6) Hypertension: Blood pressure adequately controlled. Continue current regimen. (7) Hyperlipidemia: He has a hard time affording his medications, more specifically Zetia. Recommend atorvastatin [address]Zetia and simvastatin. We discussed this and he is willing to try atorvastatin. (8) Tobacco abuse: Recommended that he stop smoking. He states that he officially stopped as of yesterday. Disposition: Highly complex medical issues. Cardiology will continue to follow. Patient care was discussed with Dr. Leung, primary hospitalist. Thank you for allowing me to participate in the care of your patient. Please call for any other questions or concerns. Sincerely, Davion Buckley M.D. History of Present Illness Reason for Consultation: Atrial fibrillation with rapid ventricular response Requesting Physician: Dr. Leung Attending Physician: Luis Leung MD History of Present Illness Mr. Rodriguez is a very pleasant 64-year-old gentleman with a history significant for CAD status post PCI in 2003 in the setting of acute myocardial infarction, dyslipidemia, and hypertension. He presented about [facility] today with worsening dyspnea with exertion, chest tightness and overall decreased exercise tolerance. His primary coder has been in the [place] area but he has not seen a coder in years. For the past couple weeks he has had decreased exercise tolerance, exertional chest tightness and dyspnea with exertion. Occasionally he would have associated lightheadedness as well with exertion. When he rests, symptoms resolve. He denied any angina at rest but would experience sometimes overnight chest discomfort which appeared to be triggered at times by coffee, laying on his chest, and would sometimes improved with eating saltines. Belching would also improve his symptoms. He noticed that if he takes Tums, his belching would also improve. He weighs himself approximately once a week and believes that his weight has been stable. He has not noted any edema but does admit to orthopnea. When he would wake up in the middle of the night to use the restroom, he would be unable to lay flat at first due to shortness of breath. While talking with him today he was laying flat and had to sit up due to shortness of breath as well. He states that in August of 2003 he was at [facility] with acute myocardial infarction. He was found to have an occluded vessel but he does not recall which vessel and does not have his stent card with him. He underwent PCI but remembers having residual CAD in other vessels of 60 and 40%. Due to financial concerns, he has been taking medications every other day for the past several years, including aspirin. He notes that Zetia is his most expensive medication. He denies syncope, near-syncope, edema, melena, hematochezia, hematuria, or other bleeding. At times he does feel his heart racing but believes it is secondary to having a bad dream at night. Review of systems: As above. Review of systems otherwise negative/unremarkable. Family history: Brother had aortic valve replacement in his 20s and apparently had rheumatic heart disease. He at the age of 23. His mother had rheumatic heart disease as well, requiring possible mitral valve replacement. Social history: He smokes 1 pack of cigarettes per day. No alcohol. No drugs. He lives at home with his 18-year-old daughter and also adult stepdaughter who has mental disability. He is a . He works at [employer] in the Department of [employer]. Allergies Allergy/AdvReac Type Severity Reaction Status Date / Time morphine AdvReac Severe Nausea/vomi Unverified 02/10/19 14:16 ting Home Medications Home Medications Medication Instructions Recorded Confirmed Type aspirin 81 mg PO QAM 02/10/19 02/10/19 History ezetimibe 10 mg PO QAM 02/10/19 02/10/19 History metoprolol tartrate 50 mg PO QAM 02/10/19 02/10/19 History ramipril 2.5 mg PO QAM 02/10/19 02/10/19 History simvastatin 80 mg PO QAM 02/10/19 02/10/19 History tamsulosin 0.4 mg PO QAM 02/10/19 02/10/19 History Patient History Medical History Coronary artery disease Hyperlipidemia Hypertension Myocardial infarction Surgical History History of heart artery stent Family History Other Heart disease Social History Preferred Language: Occitan Communication Ability: Effective Graphic Arts Instructor Required: No Beliefs That Will Affect Care: None marital status: / Current Living Situation: Family Current Living Situation Comment: cares for 2 daughters, high school age, and older current occupational status: employed 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 Alert and oriented. HEENT: Anicteric sclera. Neck: Thick neck. No bruits. Normal carotid upstrokes bilaterally. Cardiac: PMI was nonpalpable. No ventricular heave. Irregularly irregular, but rate controlled. Normal S1-S2. 1/6 systolic murmur. No rubs, or gallops. Pulmonary: Decreased breath sounds throughout, but otherwise clear. Abdomen: Soft, nontender, nondistended, with normoactive bowel sounds. No bruits noted. Extremities: 2+ radial pulses bilaterally. 2+ posterior tibialis pulses bilaterally. Trace to 1+ bilateral lower extremity edema. No cyanosis. Psychiatric: Affect appears appropriate. Results & Data Vital Signs (Past 12 Hours) Vital Signs Temp Pulse Pulse Resp BP BP Pulse Ox 02/10/19 15:56 37.1 C 94 H 22 139/88 92 02/10/19 13:25 36.5 C 92 H 16 143/95 H 93 02/10/19 13:00 96 H 18 117/80 89 L 02/10/19 12:46 96 H 18 117/80 89 L 02/10/19 12:31 98 H 15 133/103 H 93 02/10/19 12:24 86 10 L 99/80 L 91 02/10/19 12:18 91 H 16 99/80 L 93 02/10/19 12:16 87 4 L 99/80 L 92 02/10/19 12:01 103 H 12 107/78 86 L 02/10/19 11:46 91 H 18 116/84 90 02/10/19 11:31 94 H 14 143/107 H 94 02/10/19 11:16 105 H 9 L 101/84 90 02/10/19 11:01 119 H 24 152/97 H 92 02/10/19 10:48 102 H 16 128/98 91 02/10/19 10:47 104 H 18 90 02/10/19 10:32 85 7 L 129/98 94 02/10/19 10:30 89 17 94 02/10/19 10:16 119 H 12 147/71 H 94 02/10/19 10:15 111 H 19 90 02/10/19 10:01 109 H 14 145/103 H 91 02/10/19 10:00 102 H 14 94 02/10/19 09:47 100 H 11 L 94 02/10/19 09:46 98 H 15 143/108 H 90 02/10/19 09:45 115 H 11 L 90 02/10/19 09:36 111 H 14 138/98 94 02/10/19 09:31 103 H 14 138/98 94 02/10/19 09:30 106 H 19 94 02/10/19 09:22 108 H 19 104/74 88 L 02/10/19 09:15 126 H 23 90 02/10/19 09:14 107 H 12 124/97 92 02/10/19 09:10 113 H 13 02/10/19 09:01 141 H 18 138/101 H 96 02/10/19 08:45 109 H 13 92 02/10/19 08:43 116 H 12 119/90 92 02/10/19 08:30 141 H 18 138/101 H 96 02/10/19 08:15 128 H 20 96 02/10/19 08:01 142 H 142 H 23 135/107 H 135/107 H 93 02/10/19 08:00 143 H 20 94 02/10/19 07:58 156 H 18 94 02/10/19 07:56 156 H 18 139/101 H 94 02/10/19 07:55 142 H 20 139/101 H 94 02/10/19 07:54 161 H 17 94 02/10/19 07:43 36.4 C L 85 18 148/101 H 96 Laboratory Results Laboratory Results - last 24 hr 02/10/19 02/10/19 02/10/19 07:50 07:50 07:50 WBC 5.93 RBC 4.75 Hgb 13.3 L Hct 40.4 L MCV 85.1 MCH 28.0 MCHC 32.9 RDW Std Deviation 42.0 RDW Coeff of Micheal 13.7 Plt Count 135 MPV 10.0 Immature Gran % (Auto) 0.2 Neut % (Auto) 65.8 Lymph % (Auto) 25.3 [place] % (Auto) 6.9 Eos % (Auto) 1.3 Baso % (Auto) 0.5 Immature Gran # (Auto) 0.01 Neut # (Auto) 3.90 Lymph # (Auto) 1.50 [place] # (Auto) 0.41 Eos # (Auto) 0.08 Baso # (Auto) 0.03 PT 11.1 INR 1.1 APTT 23.6 PTT Ratio 0.9 D-Dimer 850 H* Sodium 141 Potassium 3.9 Chloride 106 Carbon Dioxide 29 Anion Gap 6.0 BUN 14 Creatinine 1.13 Est Cr Clr Drug Dosing 97.5 Est GFR ( Amer) 80.3 Est GFR (Non-Af Amer) 69.3 BUN/Creatinine Ratio 12.4 Glucose 115 H Estimat Average Glucose Hemoglobin A1c Calcium 9.7 Magnesium 2.0 Total Bilirubin 0.8 AST 29 ALT 42 Alkaline Phosphatase 77 Troponin I 0.110 H* NT-Pro-B Natriuret Pep Total Protein 7.5 Albumin 3.8 Globulin 3.7 Albumin/Globulin Ratio 1.0 Triglycerides Cholesterol LDL Cholesterol, Calc VLDL Cholesterol, Calc HDL Cholesterol Cholesterol/HDL Ratio TSH 3.800 02/10/19 02/10/19 02/10/19 07:50 07:50 07:50 WBC RBC Hgb Hct MCV MCH MCHC RDW Std Deviation RDW Coeff of Micheal Plt Count MPV Immature Gran % (Auto) Neut % (Auto) Lymph % (Auto) [place] % (Auto) Eos % (Auto) Baso % (Auto) Immature Gran # (Auto) Neut # (Auto) Lymph # (Auto) [place] # (Auto) Eos # (Auto) Baso # (Auto) PT INR APTT PTT Ratio D-Dimer Sodium Potassium Chloride Carbon Dioxide Anion Gap BUN Creatinine Est Cr Clr Drug Dosing Est GFR ( Amer) Est GFR (Non-Af Amer) BUN/Creatinine Ratio Glucose Estimat Average Glucose 137 Hemoglobin A1c 6.4 H Calcium Magnesium Total Bilirubin AST ALT Alkaline Phosphatase Troponin I NT-Pro-B Natriuret Pep 1201 H Total Protein Albumin Globulin Albumin/Globulin Ratio Triglycerides Cancelled Cholesterol Cancelled LDL Cholesterol, Calc Cancelled VLDL Cholesterol, Calc Cancelled HDL Cholesterol Cancelled Cholesterol/HDL Ratio Cancelled TSH Diagnostic Findings CTA 02/10/2019: No pulmonary embolus. Cardiomegaly with evidence of CHF per Radiology. Right larger than left pleural effusions. Small pericardial effusion. Echo 02/10/2019: Preliminary review demonstrated reduced LV systolic function and mitral regurgitation. Full report to follow after formal review. P reliminary review was performed at the bedside. ECGs personally reviewed: ECG 02/10/2019 at 8:47 a.m.: AFib with RVR to 110 bpm. ECG 02/10/2019 at 7:51 a.m.: AFib with RVR at 145 bpm. Medications Administered Current Inpatient Medications Acetaminophen (Tylenol) 650 mg PO Q4H PRN PRN Reason: Pain or Fever Stop: 03/12/19 14:07 Al Hydrox/Mg Hydrox/Simethicone (Maalox) 15 ml PO Q4H PRN PRN Reason: Dyspepsia Stop: 03/12/19 14:07 Aspirin (Ecotrin Ectab) 81 mg PO QAM [facility] Stop: 03/12/19 14:59 Last Admin: 02/10/19 16:14 Dose: 81 mg Documented by: Atorvastatin Calcium (Lipitor) 80 mg PO HS [facility] Stop: 03/12/19 20:59 Enalapril Maleate (Vasotec) 10 mg PO DAILY [facility] Stop: 03/12/19 14:59 Last Admin: 02/10/19 16:14 Dose: 10 mg Documented by: Heparin Sodium/Dextrose (Heparin Sodium/Dextrose) 25,000 units in 500 mls @ 37 mls/hr IV .[id number] [facility]; Protocol Stop: 03/12/19 14:44 Last Admin: 02/10/19 14:40 Dose: 1,850 units/hr, 37 mls/hr Documented by: Magnesium Hydroxide (Milk Of Magnesia) 30 ml PO Q12H PRN PRN Reason: Constipation Stop: 03/12/19 14:07 Metoprolol Tartrate (Lopressor) 25 mg PO Q8 [facility] Stop: 03/12/19 15:29 Nitroglycerin (Nitrostat) 0.4 mg SL UD PRN PRN Reason: Chest Pain Stop: 03/12/19 14:07 Ondansetron HCl (Zofran) 4 mg IV Q6H PRN PRN Reason: Nausea Stop: 03/12/19 14:07 Polyethylene Glycol (Miralax Powder Packet) 17 gm PO DAILY PRN PRN Reason: Constipation Stop: 03/12/19 14:07 Tamsulosin HCl (Flomax) 0.4 mg PO [facility] Stop: 03/12/19 14:59 Last Admin: 02/10/19 16:15 Dose: 0.4 mg Documented by:
[2019-02-10] MEDS: METOPROLOL TARTRATE 25 MG TAB PO SCH ×2 (17:08→20:44)
[2019-02-10 18:28] LABS: Appearance Urine Clear (Clear); Bilirubin Urine Negative (Negative); Blood Urine Negative (Negative); Color Urine Yellow; Glucose Urine UA Negative (Negative); Ketones Urine Negative (Negative); Leukocyte Esterase Urine Negative (Negative); Nitrite Urine Negative (Negative); Protein Urine Negative (Negative); Specific Gravity Urine 1.039 (1.000-1.030); Urobilinogen Urine Negative (Negative); pH Urine 5.5 (4.5-7.5)
[2019-02-10] MEDS: ATORVASTATIN 40 MG TAB PO SCH (20:42)
[2019-02-10 21:22] LABS: Partial Thromboplastin Ratio 1.6; Partial Thromboplastin Time 42.7 Seconds (21.0-31.0)
[2019-02-10] MEDS ORDERED: HEPARIN IV BOLUS 4,000 UNITS in SYRINGE 0 ML IV STA (22:02)
[2019-02-11 02:02] LABS: Basophils # (auto) 0.02 K/uL (0-0.2); Basophils % (auto) 0.4 %; Eosinophils # (auto) 0.13 K/uL (0-0.5); Eosinophils % (auto) 2.9 %; Hematocrit (blood only) 38.5 % (42-52); Hemoglobin 12.7 g/dL (14.0-18.0); Immature Granulocytes # (auto) 0.01 K/uL (0.00-0.02); Immature Granulocytes % (auto) 0.2 %; Lymphocytes # (auto) 1.42 K/uL (1.2-3.4); Lymphocytes % (auto) 31.6 %; Mean Platelet Volume 9.9 fL (7.4-10.4); Monocytes # (auto) 0.36 K/uL (0.11-0.59); Neutrophils # (auto) 2.56 K/uL (1.4-6.5); Neutrophils % (auto) 56.9 %; Platelet Count 127 K/uL (130-400); RDW Coefficient of Variation 13.8 % (11.5-14.5); RDW Standard Deviation 42.1 fL (36.4-46.3); Red Blood Count 4.53 M/uL (4.7-6.1)
[2019-02-11 02:19] LABS: BUN Creatinine Ratio 12.1 (10-20); Creatinine Clr Calc Pharmacy 82.2 ml/min; Est GFR (African American) 65.3; Est GFR (Non-African American) 56.4; Magnesium 2.2 mg/dl (1.8-2.4); Potassium 3.6 mmol/L (3.5-5.1)
[2019-02-11 02:24] LABS: Partial Thromboplastin Ratio 3.5
[2019-02-11 02:35] LABS: Partial Thromboplastin Time 95.1 Seconds (21.0-31.0)
[2019-02-11 02:38] LABS: Ovalocytes 1+
[2019-02-11 02:42] LABS: T4 Free Thyroxine 1.07 ng/dl (0.8-1.6)
[2019-02-11] MEDS: HEPARIN SODIUM/DEXTROSE 25,000 UNITS/500 ML BAG IV SCH ×2 (04:23→23:29)
[2019-02-11] MEDS: METOPROLOL TARTRATE 25 MG TAB PO SCH ×3 (07:14→21:39)
[2019-02-11] MEDS ORDERED: FUROSEMIDE 40 MG/4 ML VIAL IV STA (07:41)
[2019-02-11] MEDS ORDERED: FUROSEMIDE 40 MG in SYRINGE 0 ML IV ONE (08:00)
[2019-02-11] MEDS: ENALAPRIL MALEATE 10 MG TAB PO SCH (08:44)
[2019-02-11] MEDS: TAMSULOSIN HCL 0.4 MG CAP PO SCH (08:44)
[2019-02-11] MEDS: ASPIRIN 81 MG ECTAB PO SCH (08:45)
[2019-02-11 10:15] LABS: Partial Thromboplastin Ratio 2.3
[2019-02-11 10:17] LABS: Partial Thromboplastin Time 62.1 Seconds (21.0-31.0)
[2019-02-11] MEDS ORDERED: NiCARDipine HCL INJ 2.5 MG/ML 10 ML AMP ONE (12:14)
[2019-02-11] MEDS ORDERED: HEPARIN (PORCINE) 1000 UNIT/ML 10 ML (CATH LAB USE ONLY) ONE ×2 (12:14→15:21)
[2019-02-11] MEDS ORDERED: MIDAZOLAM HCL 1 MG/ML 2ML VIAL ONE ×2 (12:14→14:37)
[2019-02-11] MEDS ORDERED: NITROGLYCERIN/D5W 100MCG/ML 20ML SYR ONE (12:14)
[2019-02-11] MEDS ORDERED: fentaNYL citrate 100 MCG/2 ML VIAL ONE (12:14)
--- NOTE | 2019-02-11 13:06 | Pre Anesthesia Assessment ---
Date of Service February 11, 2019 Pre Sedation Assessment Vital Signs Temp Pulse Pulse Resp BP Pulse Ox 02/11/19 11:17 36.7 C 90 19 99/59 L 91 02/11/19 07:08 36.7 C 88 20 112/74 95 02/11/19 04:13 36.7 C 105 H 19 131/85 94 02/10/19 23:47 93 H 02/10/19 23:33 36.9 C 94 H 18 100/71 94 02/10/19 19:30 37.1 C 84 22 99/65 L 95 02/10/19 15:56 37.1 C 94 H 22 139/88 92 02/10/19 13:25 36.5 C 92 H 16 143/95 H 93 Cardiovascular + irregularly irregular Respiratory normal respiratory effort, lungs clear to auscultation Pre-Sedation Airway Assessment Smoking Status: Current every day smoker Mallampati Class: III ASA: ASA3 NPO Status Date of Last Intake of Fluids: 02/10/19 Time of Last Intake of Fluids: 21:00 Date of Last Intake of Solid Food: 02/10/19 Time of Last Intake of Solid Foods: 21:00 Procedure Planning Contraindications for Sedation: none Current Medications Reviewed: Yes Notes The planned sedation has been discussed with the patient. Informed Consent was obtained. I have identified the patient, determined the appropriateness of sedation and have assessed the patient immediately prior to the procedure. All medicine(s) and interventions are by my order.
[2019-02-11] MEDS ORDERED: ADENOSINE IV SOLN 3 MG/ML 20 ML VIAL IV ONE ×2 (14:03→14:37)
--- NOTE | 2019-02-11 14:14 | Cardiac Catheterization ---
Cardiac Cath Procedure Full Procedure Date February 11, 2019 Pre-Procedure Diagnosis Pre-Procedure Diagnosis: Angina, CHF and Cardiomyopathy AUC Score AUC Score: 8 Post-Procedure Diagnosis Post-Procedure Diagnosis: Severe CAD Procedure(s) Performed Procedure(s) Performed: Coronary Angiography, Left Heart Cath and Right Heart Cath Head Shipper Gutierrez Buckley MD Exercise Rider(s) Linsey Estimated Blood Loss Estimated Blood Loss: < 30 ml Medication(s) Medication(s): Fentanyl, Heparin, Lidocaine 1%, Nicardipine and Versed Summary of Findings Coronary angiography: 1. Left main coronary artery: The LMCA is large in caliber without significant CAD. 2. Left anterior descending: The LAD is a large caliber vessel that extends to the apex. Proximal LAD 20%. Mid LAD 30-40% followed by focal 50-70% stenosis. LAMIN 3 flow. Large D1 with ostial 30-40% stenosis. 3. Circumflex: The circumflex is a large caliber vessel. Mid circumflex 30%. Distal circumflex diffuse 30-40% stenosis. Very small caliber OM1 and OM2. Large caliber OM3 with proximal 40% stenosis. Small branch from OM3 with 90% proximal stenosis. 4. Right coronary: RCA is large and dominant. Proximal RCA 50%. Early Mid RCA 40%. Mid RCA 60-70% stenosis. Proximal PDA 30%. PL branches without significant CAD. Left heart catheterization: 1. Left ventriculography was not performed. 2. No significant aortic stenosis. Peak to peak gradient across the aortic valve was approximately 0mmHg. 3. Normal LVEDP; 12mmHg. Right heart catheterization: 1. PA pressure 30/16 with a mean of 21mmHg. 2. Mildly elevated pulmonary capillary wedge pressure. V-wave 20 with a mean of 16mmHg. 3. RV pressure 29/7 with RVEDP of 9mmHg. 4. RA pressure normal. V-wave 10 with a mean of 7mmHg. 5. Cardiac output via thermodilution was 6.1 L/min, with a cardiac index of 2.4 L/min/m2. 6. PVR 0.82 Wood units. Sedation start time: 1:13 p.m. Sedation end time: 2:00 p.m. Impression: 1. Severe CAD involving small OM3 branch vessel. Moderate/severe CAD involving mid LAD and mid RCA 2. Otherwise, mild and moderate nonobstructive multivessel CAD. 3. Normal pulmonary artery pressure. 4. Mildly elevated pulmonary capillary wedge pressure. 5. Normal cardiac output via thermodilution. 6. No aortic stenosis. 7. Patient presented with systolic CHF and exertional angina with a history of prior myocardial infarction and PCI several years ago. Plan: 1. Dr. Villanueva of interventional Cardiology was asked to review images. He plans to perform FFR of mid LAD and possibly RCA (his findings to follow...see report by Dr. Villanueva). 2. Medical therapy for severe CAD involving small OM3 branch. 3. Optimize medical therapy. Hemodynamics Rest Ao:: 102/74 Final Ao: 112/80 LV: systolic 102 with LVEDP 12 Recommendations Recommendations: Management Recommendatons (as above) Specimens Specimens: None Radiation Exposure (mGy) 2348 mGy. 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.) ACC Data: Clinical Staff Pharmacist Cardiac Status Clinical evaluation leading to the procedure CAD Presenation: Stable angina Anginal Classification: CCS III Heart Failure: NYHA Class: CCS IV Cardiogenic Shock within 24 Hours: No Cardiac Arrest within 24 Hours: No Imaging Studies Past 6 Months: Yes Stress Studies Past 6 Months: No Standard Exercise Test: No Stress Echocardiogram: No Stress Testing w/SPECT MPI: No Cardiac CTA: No Coronary Anatomy Dominant: Right Left Main (% Stenosis): Normal LAD (% Stenosis): Proximal (20%) and Mid (30-40% followed by 50-70% stenosis.) D1 (% Stenosis): Ostial (30-40%) Circumflex (% Stenosis): Mid (30%) and Distal (30-40%) OM1 (% Stenosis): Normal OM2 (% Stenosis): Normal OM3 (% Stenosis): Proximal (40%. Posterior branch from OM3 with 90% proximal stenosis, but small caliber vessel.) RCA (% Stenosis): Proximal (50%) and Mid (Early mid 40% followed by long 60-70% stenosis. LAMIN 3 flow.) R PDA (% Stenosis): Proximal (30%) R PL1 (% Stenosis): Normal R PL2 (% Stenosis): Normal Left Ventricular Angiography EF (%): n/a Diagnostic Physicians Name: Gutierrez Buckley MD Status: Elective Closure Device Percutaneous Entry Location: Radial Closure Device: Radial Band Recommendations: Management Recommendatons (as above)
--- NOTE | 2019-02-11 14:49 | Hospitalist Progress Note ---
Date of Service February 11, 2019 Assessment & Plan (1) Acute systolic (congestive) heart failure: Echo on 02/10 showed EF 30-35% with akinesis of the basal septum and basal inferior wall. - Lasix 40mg IV on 02/10 & again on 02/11 - Will need to start/adjust good CHF medications, including beta-jordan, ACEi (as tolerated). - Will avoid Entresto given cost concerns; on flip side, may qualify for discount or free medication - CM to assist (2) Atrial fibrillation with RVR: Presented with afib with RVR. - Rate being controlled with metop 25mg PO Q8h - On heparin gtt -> Qualifies for $10/month copay card for Eliquis - Will switch to PO as able (3) CAD (coronary artery disease): Stent approx. 15 years ago. - Left heart cath on 02/11 showed severe OM3 disease and possible lesions in the LAD & RCA with further report pending - Aggressive medical management - beta-jordan, statin, ASA (4) Hypertension: BP has been low-normal on current dose of beta-jordan. - Monitor (5) Tobacco abuse: Reports he will quit now. (6) BPH (benign prostatic hyperplasia): Continue tamsulosin (7) Morbid obesity: Counseled weight loss (8) DVT prophylaxis: Heparin gtt Subjective Feels he is breathing better. Still having some aching chest pain in the substernal area and mild shortness of breath. Review of Systems Review of Systems: All systems reviewed & are unremarkable except as noted in HPI & below Physical Exam Constitutional: WD/WN, vitals as above Eyes: EOM intact bilaterally; no conjunctival abnormality ENMT: external ear and nose normal, oropharynx normal Neck: trachea midline, no thyromegaly normal visual inspection Respiratory: normal respiratory effort, lungs clear to auscultation no respiratory distress Cardiovascular: Rate/Rhythm: + irregularly irregular Heart Sounds: normal S1 and normal S2; no murmur Gastrointestinal (Abdomen): Inspection/Auscultation: abdomen normal to inspection; abdomen not distended Musculoskeletal: no cyanosis or clubbing, extremities motor strength 5/5 Skin: no rashes, warm and dry Neurologic: moves all extremities and awake Psychiatric: Orientation: alert, oriented to person and cooperative Results & Data Vital Signs (Past 12 Hours) Vital Signs Temp Pulse Resp BP Pulse Ox 02/11/19 11:17 36.7 C 90 19 99/59 L 91 02/11/19 07:08 36.7 C 88 20 112/74 95 02/11/19 04:13 36.7 C 105 H 19 131/85 94 PG Care Time/CCT Total # of Minutes Spent Total Time Spent with Patient: Total time spent is greater than 50% in coordination of care (as documented) at patient's floor/unit and/or counseling patient:
[2019-02-11] MEDS ORDERED: CLOPIDOGREL BISULFATE 300 MG TAB ONE (14:52)
[2019-02-11] MEDS ORDERED: SODIUM CHLORIDE 0.9% 1000ML 1,000 ML IV SCH (15:45)
[2019-02-11 15:51] LABS: iSTAT Arterial Blood Gas HCO3 26 meg/L (19-24); iSTAT Arterial Blood Gas pCO2 40 mmHg (35-46); iSTAT Arterial Blood Gas pH 7.42 (7.35-7.45); iSTAT Carbon Dioxide 27 mEq/l (24-31)
--- NOTE | 2019-02-11 16:02 | Post Anesthesia Assessment ---
Date of Service February 11, 2019 Post Sedation Assessment Vital Signs Temp Pulse Pulse Resp BP Pulse Ox 02/11/19 15:09 36.4 C L 88 20 113/64 100 02/11/19 11:17 36.7 C 90 19 99/59 L 91 02/11/19 07:08 36.7 C 88 20 112/74 95 02/11/19 04:13 36.7 C 105 H 19 131/85 94 02/10/19 23:47 93 H 02/10/19 23:33 36.9 C 94 H 18 100/71 94 02/10/19 19:30 37.1 C 84 22 99/65 L 95 Recovery Score Activity: Moves 4 extremities Respiration: Deep Breath/Cough Circulation: +/-20% PreAnes Value Consciousness: Fully Awake Oxygen Saturation: O2 needed for >90% Post Sedation Plan On clinical assessment, the patient appears to have tolerated the sedation without complications. Patient is recovering as anticipated. Patient will continue to be monitored by nursing and may be discharged when sedation discharge criteria are met per below protocol. Upon Completions of procedure and additional 15 minutes continue every 5 minute vital signs and the P.A.R. score; then discharge to a Phase I or Fast Track to Phase II per the following guidelines: * Discharge Patient to appropriate Phase II area if PAR is 8 or greater or return to pre- procedure baseline. The post - procedure orders will be as directed. * If PAR score is less than 8 or not return to pre-procedure baseline then patient will follow Phase I monitoring till PAR is reached for Phase II. The Phase I may be done in procedure room or may call to secure a Phase I area. * If naloxone or flumazenil are used for reversal, hold in Phase I for continued monitoring from when last reversal dose was given for a minimum of 60 minutes or longer pending the nurse and/or physician discretion of patient condition before discharge to Phase II. Please call the Sedation Physician to re-evaluate and complete post-note for discharge to Phase II area. Do NOT discharge from procedure sedation or Phase 1 until post- sedation evaluation note is complete by procedure /sedation MD Sedation Discharge Instructions to be given to the patient at discharge to home.
--- NOTE | 2019-02-11 16:14 | Cardiac Catheterization ---
Cardiac Cath Procedure Full Procedure Date February 11, 2019 Pre-Procedure Diagnosis Pre-Procedure Diagnosis: Angina, CHF and Cardiomyopathy AUC Score AUC Score: 8 Post-Procedure Diagnosis Post-Procedure Diagnosis: Severe CAD Procedure(s) Performed Procedure(s) Performed: Coronary Angiography, Drug Eluting Stent and Fractional Flow [place] [employer] Rem[employer] Supervisor Justin Villanueva MD Oven Tender(s) Linsey Estimated Blood Loss Estimated Blood Loss: < 30 ml Medication(s) Medication(s): Clopidogrel, Fentanyl, Heparin, Nicardipine, Nitroglycerin and Versed Summary of Findings Indication: Elevated troponin, moderate to severe LV dysfunction, exertional angina Access: 6 Fr right radial artery Catheters: EBU 3.5 guide, AR-1 guide, guide liner Findings: For full details of patient's coronary angiography please cath report dictated by Dr. Buckley. Briefly, patient found to have severe multi-vessel disease including a 60-70 % stenosis involving the LAD and diffuse RCA disease with 60 to 70% latemid segment disease. Decision to proceed with FFR and possible PCI --FFR/PCI mid LAD-- Antithrombotic therapy: Heparin, clopidogrel Procedure: Left main cannulated with EBU 3.5 guide BMW wire passed across lesion into distal LAD ACIST FFR placed into distal LAD. FFR 0.78decision to proceed with PCI Pro-water wire placed into moderate caliber first diagonal Mid LAD lesion predilated with 2.5 compliant balloon Dilated lesion stented with 3.0 x 26 m Albert drug-eluting stent First diagonal rewired with pilot plant operator 50 wire Stent post-dilated with 3.5 noncompliant balloon IC vasodilators administered for spasm Post procedure LAMIN 3 flow in LAD, first diagonal, stent well expanded with minimal residual stenosis and no apparent cardiac complications. --FFR/PCI of mid RCA-- RCA cannulated with AR-1 guide BMW wire placed into right PDA ACIST FFR catheter placed into distal RCA FFR0.64decision to proceed with PCI With the aid of a guide liner, latemid RCA dilated with 2.5 balloon Latemid RCA stented with 3.0 x 22 mm Héctor drug-eluting stent Stent postdilated with 3.5 NC balloon IC vasodilators administered for spasm Post procedure LAMIN III flow in RCA, stent well expanded with minimal residual stenosis and no apparent cardiac complications. Arterial Closure: TR band Summary: 1. Severe obstructive multi-vessel coronary artery disease -Mid LADFFR 0.78 Mid RCAFFR 0.64 2. Successful PCI of mid LAD with single drug-eluting stent (3.0 x 26 mm Albert; postdilated with 3.5 NC). 3. Successful PCI of mid RCA with single drug-eluting stent (3.0 x 22 mm Albert; postdilated with 3.5 NC). 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 Recommend triple therapy with aspirin, clopidogrel, anti-coagulation while hospitalized Long-term anticoagulation, clopidogrel for 1 year Continue statin, and ASCVD risk factor modification Consult cardiac Rehab Hemodynamics Rest Ao:: 112/80/95 Final Ao: 105/74 LV: -- Recommendations Recommendations: PCI without planned CABG Specimens Specimens: None Radiation Exposure (mGy) 7052 Contrast (mls) 280 Fluids (cc crystalloids) Fluids (cc crystalloids): 200 Drains Drains: none Anesthesia moderate Procedural Complication(s) None Disposition PCU ACC Data: Loading Supervisor Cardiac Status Clinical evaluation leading to the procedure CAD Presenation: Non STEMI Anginal Classification: CCS III Heart Failure: NYHA Class: CCS IV Cardiogenic Shock within 24 Hours: No Cardiac Arrest within 24 Hours: No Imaging Studies Past 6 Months: Yes Stress Studies Past 6 Months: No Diagnostic Physicians Name: Justin Villanueva MD Status: Elective Closure Device Percutaneous Entry Location: Radial Closure Device: Radial Band Recommendations: PCI without planned CABG Lesion Segment Name: mid LAD Culprit Artery: Yes Stenosis Prior to Rx (%): 60-70 Chronic Total Occlusion: No IVUS: No FFR: Yes Ratio: greater than 0.75% Pre-Procedure LAMIN Flow: 3 Previously Treated Lesion: No Lesion Complexity: Non-High/Non-C Lesion Length (mm): 20 Thrombus Present: No Bifurcation Lesion: Yes Guidewire Across Lesion: Stenosis Post-Procedure (%): 0 Post-Procedure LAMIN Flow: 3 Devices(s) Deployed: Yes Yes Lesion #2 Segment Name: mid RCA Culprit Artery: Yes Stenosis Prior to Rx (%): 70 Chronic Total Occlusion: No FFR: Yes Ratio: less than or equal to 0.75% Pre-Procedure LAMIN Flow: 3 Previously Treated Lesion: No Lesion Complexity: Non-High/Non-C Lesion Length (mm): 18 Thrombus Present: No Bifurcation Lesion: No Guidewire Across Lesion: Yes Stenosis Post-Procedure (%): 0 Post-Procedure LAMIN Flow: 3 Devices(s) Deployed: Yes Intraprocedure Events Significant Disection: No Perforation: No
--- NOTE | 2019-02-11 17:25 | Cardiology Progress Note ---
Date of Service February 11, 2019 Assessment & Plan (1) Atrial fibrillation with RVR: Continue beta-jordan. Will change metoprolol tartrate to metoprolol succinate 100 mg daily starting in the morning. Heart rate has improved. Can further titrate metoprolol as necessary. Continue anticoagulation for stroke risk reduction. Would try to find a medication that is affordable for him. (2) Acute systolic (congestive) heart failure: He presented with class 4 symptoms. He has diuresed quite nicely. He received another dose of Lasix today. Filling pressures normal to mildly elevated during right heart and left heart catheterization today. Consider another dose of intravenous Lasix tomorrow if he appears hypervolemic versus transitioning to Lasix 40 mg once daily if he appears more euvolemic. Low- sodium diet. Strict I&Os. Kelly weights. (3) CAD (coronary artery disease): He underwent PCI of his mid LAD and mid RCA today, 02/11/2019. He tolerated the procedure well. Otherwise, he underwent PCI in 2003 during acute [place]. Details are not available. Continue anti-platelet therapy as outlined by Dr. Villanueva. Long-term anti-platelet therapy very important to reduce the risk of stent thrombosis. Continue triple therapy while hospitalized as outlined by Dr. Villanueva. Continue high-intensity statin therapy. Continue beta-jordan. (4) Mitral regurgitation: Follow over time. This may improve following diuresis. Repeat echo as an outpatient. (5) Cardiomyopathy: Etiology could be due to ischemic heart disease versus tachycardia. Repeat echo as an outpatient. Metoprolol succinate as above. Agree with AZAEL- inhibitor. Finances are a concern and therefore Entresto was not started. Hopefully with revascularization, heart rate control, and appropriate medical therapy, his LV systolic function may improve over time. If it does not, on optimal medical therapy, would then recommend consideration for ICD. (6) Hypertension: Blood pressure Reasonably controlled. Medications as above. (7) Hyperlipidemia: He has a hard time affording Zetia as an outpatient. On discharge, atorvastatin 80 mg once daily in place of Zetia and simvastatin. (8) Tobacco abuse: Stop smoking. Disposition: Dr. Holman will be covering cardiology for the next 2 days. He will be asked to follow-up with Jennifer tomorrow. Close follow-up as an outpatient recommended if he gets discharged over the weekend. Please have nurse navigator set up an appointment with Sania Pereyra next week as part of heart failure program. Patient care was discussed with Dr. Leung earlier today. Subjective He has not had any further anginal symptoms. His breathing has improved but is not yet back to baseline. He denies syncope, near-syncope, palpitations. Edema has improved. He denies bleeding. He underwent cardiac catheterization today, receiving mid LAD and mid RCA stents. Review of systems: As above. Physical Exam Physical Exam: Gen.: No acute distress. Alert and oriented. HEENT: Anicteric sclera. Neck: Thick neck. Cardiac: Irregularly irregular, but rate controlled. Normal S1-S2. 1/6 systolic murmur. No rubs, or gallops. Pulmonary: Decreased breath sounds throughout, but otherwise clear. Abdomen: Soft, nontender, nondistended, with normoactive bowel sounds. No bruits noted. Extremities: Trace to 1+ bilateral lower extremity edema. No cyanosis. Psychiatric: Affect appears appropriate. Results & Data Vital Signs (Past 12 Hours) Vital Signs Temp Pulse Resp BP Pulse Ox 02/11/19 16:53 91 H 22 129/91 91 02/11/19 16:23 95 H 21 121/76 91 02/11/19 16:08 36.5 C 99 H 21 120/79 93 02/11/19 15:53 36.6 C 80 21 134/88 90 02/11/19 15:38 36.4 C L 60 21 131/92 93 02/11/19 15:09 36.4 C L 88 20 113/64 100 02/11/19 11:17 36.7 C 90 19 99/59 L 91 02/11/19 07:08 36.7 C 88 20 112/74 95 Intake & Output 02/09/19 02/10/19 02/11/19 02/12/19 06:59 06:59 06:59 06:59 Intake Total 993.899 / 993.899 297.850 / 297.850 Output Total 4550 / 4550 2300 / 2300 Balance -3555.101 / -3556.101 -2001.150 / -2002.150 Weight 126 kg Laboratory Results Laboratory Results - last 24 hr 02/10/19 02/10/19 02/11/19 13:14 20:50 01:53 WBC RBC Hgb Hct MCV MCH MCHC RDW Std Deviation RDW Coeff of Micheal Plt Count MPV Immature Gran % (Auto) Neut % (Auto) Lymph % (Auto) [place] % (Auto) Eos % (Auto) Baso % (Auto) Immature Gran # (Auto) Neut # (Auto) Lymph # (Auto) [place] # (Auto) Eos # (Auto) Baso # (Auto) Ovalocytes APTT 42.7 H PTT Ratio 1.6 Activ Coag Time Kaolin POC pH POC pCO2 POC pO2 POC HCO3 POC Total CO2 POC Base Excess POC ABG O2 Sat Sodium 141 Potassium 3.6 Chloride 104 Carbon Dioxide 33 H Anion Gap 4.0 BUN 16 Creatinine 1.34 Est Cr Clr Drug Dosing 82.2 Est GFR ( Amer) 65.3 Est GFR (Non-Af Amer) 56.4 BUN/Creatinine Ratio 12.1 Glucose 110 H Calcium 9.0 Magnesium 2.2 TSH 5.010 H Free T4 1.07 Urine Color Yellow Urine Appearance Clear Urine pH 5.5 Ur Specific [place] 1.039 H Urine Protein Negative Urine Glucose (UA) Negative Urine Ketones Negative Urine Blood Negative Urine Nitrite Negative Urine Bilirubin Negative Urine Urobilinogen Negative Ur Leukocyte Esterase Negative 02/11/19 02/11/19 02/11/19 01:53 01:53 09:42 WBC 4.50 L RBC 4.53 L Hgb 12.7 L Hct 38.5 L MCV 85.0 MCH 28.0 MCHC 33.0 RDW Std Deviation 42.1 RDW Coeff of Micheal 13.8 Plt Count 127 L MPV 9.9 Immature Gran % (Auto) 0.2 Neut % (Auto) 56.9 Lymph % (Auto) 31.6 [place] % (Auto) 8.0 Eos % (Auto) 2.9 Baso % (Auto) 0.4 Immature Gran # (Auto) 0.01 Neut # (Auto) 2.56 Lymph # (Auto) 1.42 [place] # (Auto) 0.36 Eos # (Auto) 0.13 Baso # (Auto) 0.02 Ovalocytes 1+ APTT 95.1 H* 62.1 H* PTT Ratio 3.5 2.3 Activ Coag Time Kaolin POC pH POC pCO2 POC pO2 POC HCO3 POC Total CO2 POC Base Excess POC ABG O2 Sat Sodium Potassium Chloride Carbon Dioxide Anion Gap BUN Creatinine Est Cr Clr Drug Dosing Est GFR ( Amer) Est GFR (Non-Af Amer) BUN/Creatinine Ratio Glucose Calcium Magnesium TSH Free T4 Urine Color Urine Appearance Urine pH Ur Specific [place] Urine Protein Urine Glucose (UA) Urine Ketones Urine Blood Urine Nitrite Urine Bilirubin Urine Urobilinogen Ur Leukocyte Esterase 02/11/19 02/11/19 02/11/19 13:23 14:22 15:04 WBC RBC Hgb Hct MCV MCH MCHC RDW Std Deviation RDW Coeff of Micheal Plt Count MPV Immature Gran % (Auto) Neut % (Auto) Lymph % (Auto) [place] % (Auto) Eos % (Auto) Baso % (Auto) Immature Gran # (Auto) Neut # (Auto) Lymph # (Auto) [place] # (Auto) Eos # (Auto) Baso # (Auto) Ovalocytes APTT PTT Ratio Activ Coag Time Kaolin 279 H 213 H POC pH 7.42 POC pCO2 40 POC pO2 76 L POC HCO3 26 H POC Total CO2 27 POC Base Excess 1.0 POC ABG O2 Sat 95.0 Sodium Potassium Chloride Carbon Dioxide Anion Gap BUN Creatinine Est Cr Clr Drug Dosing Est GFR ( Amer) Est GFR (Non-Af Amer) BUN/Creatinine Ratio Glucose Calcium Magnesium TSH Free T4 Urine Color Urine Appearance Urine pH Ur Specific [place] Urine Protein Urine Glucose (UA) Urine Ketones Urine Blood Urine Nitrite Urine Bilirubin Urine Urobilinogen Ur Leukocyte Esterase Diagnostic Findings Cardiac catheterization 02/11/2019: Please see full report for details. Mid LAD FFR 0.78. Mid RCA FFR 0.64. Mid LAD underwent PCI with 3 x 26 mm darion ROSANNA. Mid RCA underwent PCI with 3 x 22 mm darion ROSANNA. PCWP 16. LVEDP 12. PA pressure 30/16 with a mean of 22. Severe CAD involving small OM3 branch for which medical therapy recommended. Otherwise, he had mild and moderate multivessel nonobstructive CAD. Echo 02/10/2019: Moderately dilated LV with moderately to severely reduced systolic function. EF 30-35%. Akinesis of the basal septum and basal inferior wall. Otherwise global hypokinesis. Mildly dilated RV with normal systolic function. Probable moderate MR. Telemetry personally reviewed: Atrial fibrillation. Medications Administered Current Inpatient Medications Acetaminophen (Tylenol) 650 mg PO Q4H PRN PRN Reason: Pain or Fever Stop: 03/12/19 14:07 Al Hydrox/Mg Hydrox/Simethicone (Maalox) 15 ml PO Q4H PRN PRN Reason: Dyspepsia Stop: 03/12/19 14:07 Aspirin (Ecotrin Ectab) 81 mg PO QAM [facility] Stop: 03/12/19 14:59 Last Admin: 02/11/19 08:45 Dose: 81 mg Documented by: Atorvastatin Calcium (Lipitor) 80 mg PO HS [facility] Stop: 03/12/19 20:59 Last Admin: 02/10/19 20:42 Dose: 80 mg Documented by: Clopidogrel Bisulfate (Plavix) 75 mg PO QAM [facility] Stop: 03/14/19 08:59 Enalapril Maleate (Vasotec) 10 mg PO DAILY [facility] Stop: 03/12/19 14:59 Last Admin: 02/11/19 08:44 Dose: 10 mg Documented by: Heparin Sodium/Dextrose (Heparin Sodium/Dextrose) 25,000 units in 500 mls @ 0 mls/hr IV .Q0M [facility]; Protocol Stop: 03/12/19 14:44 Last Titration: 02/11/19 12:26 Dose: 0 units/hr, 0 mls/hr Documented by: Sodium Chloride (Nss 1000ml) 1,000 mls @ 75 mls/hr IV .[id number] [facility] Stop: 02/11/19 20:24 Last Infusion: 02/11/19 17:30 Dose: Infused Documented by: Magnesium Hydroxide (Milk Of Magnesia) 30 ml PO Q12H PRN PRN Reason: Constipation Stop: 03/12/19 14:07 Metoprolol Tartrate (Lopressor) 25 mg PO Q8 [facility] Stop: 03/12/19 15:29 Last Admin: 02/11/19 17:04 Dose: 25 mg Documented by: Nitroglycerin (Nitrostat) 0.4 mg SL UD PRN PRN Reason: Chest Pain Stop: 03/12/19 14:07 Ondansetron HCl (Zofran) 4 mg IV Q6H PRN PRN Reason: Nausea Stop: 03/12/19 14:07 Polyethylene Glycol (Miralax Powder Packet) 17 gm PO DAILY PRN PRN Reason: Constipation Stop: 03/12/19 14:07 Tamsulosin [facility] (Flomax) [facility] [place] Stop: 03/12/19 14:59 Last Admin: 02/11/19 08:44 Dose: 0.4 mg Documented by:
[2019-02-11] MEDS: ATORVASTATIN 40 MG TAB PO SCH (20:22)
[2019-02-12 01:35] LABS: Hematocrit (blood only) 39.7 % (42-52); Hemoglobin 13.2 g/dL (14.0-18.0); Mean Corpuscular Hgb Conc 33.2 g/dL (32-36); Mean Corpuscular Volume 85.7 fL (80-100); Mean Platelet Volume 9.8 fL (7.4-10.4); Platelet Count 145 K/uL (130-400); RDW Coefficient of Variation 13.8 % (11.5-14.5); RDW Standard Deviation 42.9 fL (36.4-46.3); Red Blood Count 4.63 M/uL (4.7-6.1); White Blood Count 4.97 K/uL (4.8-10.8)
[2019-02-12 01:56] LABS: Partial Thromboplastin Ratio 1.7
[2019-02-12 01:57] LABS: Partial Thromboplastin Time 45.9 Seconds (21.0-31.0)
[2019-02-12 01:58] LABS: Calcium 9.1 mg/dl (8.5-10.1); Creatinine Clr Calc Pharmacy 99.1 ml/min; Est GFR (African American) 83.9; Est GFR (Non-African American) 72.4; Magnesium 2.2 mg/dl (1.8-2.4); Potassium 3.6 mmol/L (3.5-5.1)
[2019-02-12] MEDS ORDERED: HEPARIN IV BOLUS 4,000 UNITS in SYRINGE 0 ML IV ONE (02:15)
[2019-02-12] MEDS ORDERED: POTASSIUM CHLORIDE 20 MEQ/15 ML UDC PO STA (05:39)
[2019-02-12] MEDS: TAMSULOSIN HCL 0.4 MG CAP PO SCH (07:59)
[2019-02-12] MEDS: ENALAPRIL MALEATE 10 MG TAB PO SCH (07:59)
[2019-02-12] MEDS: ASPIRIN 81 MG ECTAB PO SCH (08:00)
[2019-02-12] MEDS: CLOPIDOGREL BISULFATE 75 MG TAB PO SCH (08:01)
[2019-02-12] MEDS ORDERED: METOPROLOL SUCC 50MG EXT REL TAB PO SCH (09:00)
[2019-02-12 09:05] LABS: Partial Thromboplastin Ratio 3.2
[2019-02-12 09:14] LABS: Partial Thromboplastin Time 86.3 Seconds (21.0-31.0)
--- NOTE | 2019-02-12 11:46 | Cardiology Progress Note ---
Date of Service February 12, 2019 Assessment & Plan (1) Atrial fibrillation with RVR: He remains in atrial fibrillation. I discussed with him when it might of started, I am unable to tell. His symptoms started about a month ago but those symptoms could be due to a number of other things as well, they got much worse more recently but I suspect his arrhythmia is somewhat long-standing. He was not seen by a health professional and that time and is not aware of palpitations so I cannot pinpoint it. His rate continues to be fast, at the same time as he has for 0.7-second pauses in his rhythm, that is almost 24 hours after receiving metoprolol. It may be due to sleep apnea. I do long talk with him about the treatment of atrial fibrillation and for the most part he has a reason that he does not want to follow any of my recommendations. The best option at this point is probably cardioversion (which would require a AL since we do not know the duration), he adamantly refuses that for reasons which are not clear to me. He tells me that he has had friends that have had it and he does not think it would do him any good. We could consider treating his sleep apnea, he has been if that would include a mask, at which point he told me he can possibly do that. I talked to him about switching to a drug like carvedilol which may have less rate slowing effect, be better for his cardiomyopathy, although would may be not treat his rate in atrial fibrillation as well as metoprolol but he cannot do that because even metoprolol he takes every other day. He tells me that is because of cost although I do not think metoprolol is expensive. At this point my hands are tied, he wants to feel better but does not want to change anything. I am going to switch him to metoprolol tartrate 50 mg twice a day instead of metoprolol succinate 100 mg daily, recognizing that this is not ideal treatment for his current myopathy but it may be safer if his heart rate gets very slow or he has longer pauses due to its shorter elimination time. (2) Cardiomyopathy: He has a cardiomyopathy which may be in part ischemic and may be in part tachycardia related. We should have his heart rate under control (or his rhythm converted) to see how he recovers, however as noted above that may be problematic. This may be in part an explanation for his difficulty with exertion. Subjective He is not feeling very well today, he feels that he does not feel any different than when he came into the hospital. He is not aware of his heart rhythm but feels that he has no "power", he also feels that the oxygen and his blood is low. He tells me that he does not think he has sleep apnea although I am told that he seems to based on observation by the nurses. He is not having chest discomfort. He is ambulating in his room but feeling very fatigued even just with washing up. Physical Exam Physical Exam: Constitutional: Alert, cooperative and in no distress. Pulmonary: Clear to auscultation bilaterally. Cardiac: Irregular rapid rhythm with no murmur, gallop or rub. Abdomen: Soft, nontender with normal bowel sounds. Extremities: No edema. Skin: No rash, ecchymoses or petechiae. Results & Data Vital Signs (Past 12 Hours) Vital Signs Temp Pulse Resp BP Pulse Ox 02/12/19 10:59 36.6 C 80 20 114/97 90 02/12/19 07:38 36.9 C 109 H 18 111/76 94 Diagnostic Findings Telemetry: Atrial fibrillation with an overall high heart rate, as well and has several pauses in excess of 4 seconds (longest 4.7 seconds). One occurring at around 10 this morning although he may have been sleeping at the time.
[2019-02-12] MEDS: HEPARIN SODIUM/DEXTROSE 25,000 UNITS/500 ML BAG IV SCH (12:18)
[2019-02-12] MEDS: METOPROLOL TARTRATE 50 MG TAB PO SCH ×3 (13:44→20:16)
--- NOTE | 2019-02-12 15:53 | Hospitalist Progress Note ---
Date of Service February 12, 2019 Assessment & Plan (1) Acute systolic (congestive) heart failure: Echo on 02/10 showed EF 30-35% with akinesis of the basal septum and basal inferior wall. - Lasix 40mg IV on 02/10 & again on 02/11 - Will need to start/adjust good CHF medications, including beta-jordan, ACEi (as tolerated). - Will avoid Entresto given cost concerns; on flip side, may qualify for discount or free medication - CM to assist (2) Atrial fibrillation with RVR: Presented with afib with RVR. - Rate being controlled now with Metoprolol Succinate 50 mg BID . Cardiology recommended cardioversion and AL. - On heparin gtt -> Qualifies for $10/month copay card for Eliquis. Will start Eliquis 5 mg PO BID today and stop Heparin after 48 hr. (3) CAD (coronary artery disease): Stent approx. 15 years ago. - Left heart cath on 02/11 showed severe OM3 disease and possible lesions in the LAD & RCA with further report pending - Aggressive medical management - beta-jordan, statin, ASA (4) Hypertension: BP has been low-normal on current dose of beta-jordan. - Monitor (5) Tobacco abuse: Reports he will quit now. (6) BPH (benign prostatic hyperplasia): Continue tamsulosin (7) Morbid obesity: Counseled weight loss (8) DVT prophylaxis: Heparin gtt Subjective Pt seen and examined at the bedside. No acute event overnight and pt is slowly improving. Po intake is improving. Pt denies any chest pain since the stents were placed. Pt denies any [place], fever, chills, SOB, abdominal pain, frequency and urgency. Review of Systems Review of Systems: All systems reviewed & are unremarkable except as noted in HPI & below Physical Exam Constitutional: WD/WN, vitals as above well developed and well nourished Eyes: PERRL, conjunctivae normal, anicteric sclerae ENMT: external ear and nose normal, oropharynx normal Neck: trachea midline, no thyromegaly Respiratory: normal respiratory effort, lungs clear to auscultation Cardiovascular: Rate/Rhythm: + irregularly irregular Chest (Breasts): normal inspection/palpation of breasts Gastrointestinal (Abdomen): normal bowel sounds, soft, nontender, no hepatosplenomegaly Musculoskeletal: no cyanosis or clubbing, extremities motor strength 5/5 Skin: no rashes, warm and dry Neurologic: patellar DTR's 2+ bilat, sensation intact Psychiatric: A+Ox3, euthymic affect Genitourinary: no testicular masses, no penis abnormality Lymphatic: no cervical or axillary lymphadenopathy Results & Data Vital Signs (Past 12 Hours) Vital Signs Temp Pulse Resp BP Pulse Ox 02/12/19 15:41 36.7 C 98 H 18 98/67 L 95 02/12/19 13:49 95/72 L 02/12/19 13:45 123 H 94/62 L 02/12/19 10:59 36.6 C 80 20 114/97 90 02/12/19 07:38 36.9 C 109 H 18 111/76 94 PG Care Time/CCT Total # of Minutes Spent Total Time Spent with Patient: Total time spent is greater than 50% in coordination of care (as documented) at patient's floor/unit and/or counseling patient:
[2019-02-12 16:04] LABS: Partial Thromboplastin Ratio 2.1
[2019-02-12 16:07] LABS: Partial Thromboplastin Time 57.7 Seconds (21.0-31.0)
[2019-02-12] MEDS: APIXABAN 5 MG TABLET PO SCH (16:24)
[2019-02-12] MEDS: ATORVASTATIN 40 MG TAB PO SCH (20:17)
[2019-02-13] MEDS: APIXABAN 5 MG TABLET PO SCH ×2 (05:47→16:57)
[2019-02-13] MEDS: CLOPIDOGREL BISULFATE 75 MG TAB PO SCH (07:59)
[2019-02-13] MEDS: TAMSULOSIN HCL 0.4 MG CAP PO SCH (07:59)
[2019-02-13] MEDS: ASPIRIN 81 MG ECTAB PO SCH (07:59)
[2019-02-13] MEDS: METOPROLOL TARTRATE 50 MG TAB PO SCH ×2 (08:00→21:08)
[2019-02-13] MEDS: ENALAPRIL MALEATE 10 MG TAB PO SCH (08:00)
--- NOTE | 2019-02-13 15:03 | Hospitalist Progress Note ---
Date of Service February 13, 2019 Assessment & Plan (1) Acute systolic (congestive) heart failure: Echo on 02/10 showed EF 30-35% with akinesis of the basal septum and basal inferior wall. - Lasix 40mg IV on 02/10 & again on 02/11 - Will need to start/adjust good CHF medications, including beta-jordan, ACEi (as tolerated). - Will avoid Entresto given cost concerns; on flip side, may qualify for discount or free medication - CM to assist (2) Atrial fibrillation with RVR: Presented with afib with RVR. - Rate being controlled now with Metoprolol Succinate 50 mg BID . Cardiology recommended cardioversion and AL. - On heparin gtt -> Qualifies for $10/month copay card for Eliquis. Cont Eliquis 5 mg PO BID today and stop Heparin after 48 hr. (3) CAD (coronary artery disease): Stent approx. 15 years ago. - Left heart cath on 02/11 showed severe OM3 disease and possible lesions in the LAD & RCA with further report pending - Aggressive medical management - beta-jordan, statin, ASA (4) Hypertension: BP has been low-normal on current dose of beta-jordan. - Monitor (5) Tobacco abuse: Reports he will quit now. (6) BPH (benign prostatic hyperplasia): Continue tamsulosin (7) Morbid obesity: Counseled weight loss (8) DVT prophylaxis: Heparin gtt Subjective Pt seen and examined at the bedside.Pt feels weak today but he was still able to ambulate around in his room. Po intake is improving. Pt denies fever, chills, chest pain, SOB abdominal pain , frequency and urgency. Review of Systems Review of Systems: All systems reviewed & are unremarkable except as noted in HPI & below Physical Exam Constitutional: WD/WN, vitals as above well developed and well nourished Eyes: PERRL, conjunctivae normal, anicteric sclerae ENMT: external ear and nose normal, oropharynx normal Neck: trachea midline, no thyromegaly Respiratory: normal respiratory effort, lungs clear to auscultation Cardiovascular: Rate/Rhythm: + irregularly irregular Vessels: normal peripheral pulses and dorsalis pedis pulses present Chest (Breasts): normal inspection/palpation of breasts Gastrointestinal (Abdomen): normal bowel sounds, soft, nontender, no hepato splenomegaly Musculoskeletal: no cyanosis or clubbing, extremities motor strength 5/5 Skin: no rashes, warm and dry Neurologic: patellar DTR's 2+ bilat, sensation intact Psychiatric: A+Ox3, euthymic affect Genitourinary: no testicular masses, no penis abnormality Lymphatic: no cervical or axillary lymphadenopathy Results & Data Vital Signs (Past 12 Hours) Vital Signs Temp Pulse Resp BP Pulse Ox 02/13/19 10:56 36.5 C 85 18 96/57 L 94 02/13/19 07:49 36.6 C 71 20 111/77 94 02/13/19 03:48 36.6 C 87 16 107/75 95 PG Care Time/CCT Total # of Minutes Spent Total Time Spent with Patient: Total time spent is greater than 50% in coordination of care (as documented) at patient's floor/unit and/or counseling patient:
[2019-02-13] MEDS: ATORVASTATIN 40 MG TAB PO SCH (21:08)
[2019-02-14] MEDS: APIXABAN 5 MG TABLET PO SCH ×2 (04:56→15:30)
[2019-02-14 07:37] LABS: BUN Creatinine Ratio 14.5 (10-20); Calcium 9.4 mg/dl (8.5-10.1); Creatinine Clr Calc Pharmacy 115.7 ml/min; Est GFR (African American) 102.9; Est GFR (Non-African American) 88.8
[2019-02-14] MEDS: METOPROLOL TARTRATE 50 MG TAB PO SCH (08:07)
[2019-02-14] MEDS: ENALAPRIL MALEATE 10 MG TAB PO SCH (08:07)
[2019-02-14] MEDS: CLOPIDOGREL BISULFATE 75 MG TAB PO SCH (08:07)
[2019-02-14] MEDS: TAMSULOSIN HCL 0.4 MG CAP PO SCH (08:07)
[2019-02-14] MEDS: ASPIRIN 81 MG ECTAB PO SCH (08:08)
--- NOTE | 2019-02-14 12:22 | Cardiology Progress Note ---
Date of Service February 14, 2019 Assessment & Plan (1) Atrial fibrillation with RVR: Overall, heart rate improved from presentation but still intermittently fast but also now with some pauses while sleeping (thought to be due to sleep apnea by electrophysiology). Because of this, electrophysiology has change metoprolol succinate to metoprolol tartrate. Continue anticoagulation for stroke risk reduction. He does not wish to undergo transesophageal echo and cardioversion now and would rather be discharged home. He is agreeable to consider outpatient cardioversion after 4 weeks of anticoagulation therapy. We discussed the fact that noncompliance with anticoagulation therapy would incr ease his stroke risk. (2) Acute systolic (congestive) heart failure: He presented with class 4 symptoms. He has diuresed quite nicely. He does not appear to be significantly hypervolemic. Start Lasix 40 mg p.o. once daily for maintenance. Low-sodium diet. Strict I&Os. Daily weights. Follow- up with Heart failure program. (3) CAD (coronary artery disease): He underwent PCI of his mid LAD and mid RCA on 02/11/2019. He tolerated the procedure well. Otherwise, he underwent PCI in 2003 during acute [place]. C ontinue anti-platelet therapy as outlined by Dr. Villanueva. Long-term anti-platelet therapy very important to reduce the risk of stent thrombosis. Continue triple therapy while hospitalized as outlined by Dr. Villanueva. Continue high-intensity statin therapy. Continue beta-jordan. (4) Mitral regurgitation: Follow over time. This may improve following diuresis. Repeat echo as an outpatient. (5) Cardiomyopathy: Etiology could be due to ischemic heart disease versus tachycardia. Repeat echo as an outpatient. Would prefer metoprolol succinate in place of metoprolol tartrate but this was changed while hospitalized to tartrate by electrophysiology due to pauses. This can be readdressed as an outpatient. M etoprolol succinate may also help with compliance as he has been noncompliant with medical therapy in the past. Agree with AZAEL-inhibitor. Finances are a concern and therefore Entresto was not started. Hopefully with revascularization, heart rate control, and appropriate medical therapy, his LV systolic function may improve over time. If it does not, on optimal medical therapy, would then recommend consideration for ICD. (6) Hypertension: Blood pressure has been mostly normotensive and on occasion mildly hypotensive, but asymptomatic. Continue current regimen. (7) Hyperlipidemia: He has a hard time affording Zetia as an outpatient. On discharge, atorvastatin 80 [address] daily in place of Zetia and simvastatin. (8) Tobacco abuse: Stop smoking. Disposition: Patient care communicated with primary hospitalist, Dr. Leblanc. Ms Pereyra will meet him today to discuss heart failure program. We discussed the fact that it is not ideal that his heart rate is not optimally controlled while having pauses while sleeping. He declines sleep apnea evaluation and treatment if warranted. Overall, things are improved from presentation and he prefers to be discharged. Close follow-up was strongly recommended within 1 week with Ms. Pereyra. Subjective He denies orthopnea but states that sometimes when he has his head elevated he will feel little short of breath. He admits that he does not sleep well he is waking up often and he brought up the concern for sleep apnea however he states that he would refuse CPAP. Over the weekend, he was noted to have pauses on telemetry and it was recommended by Dr. Holman that he undergo cardioversion but first would have to undergo transesophageal ECHO to evaluate for left atrial appendage thrombus. When he first was admitted, he was adamantly against undergoing cardioversion but now he was willing to have it done so that he can go home. Unfortunately, he ate a full breakfast this morning. The earliest cardioversion could be done would beLate this afternoon and then he would have to refrain from driving for 24 hours. Transesophageal ECHO and cardioversion was offered for tomorrow morning however he states that if he is unable to drive for 24 hours he would refuse. He simply wants to go home. He denies bleeding, syncope, near-syncope, palpitations. He admits that his breathing is better now than it was upon presentation. He also admits that he has not been ambulating much other than in the room. Review of systems: As above. Physical Exam Physical Exam: Gen.: No acute distress. Alert and oriented. HEENT: Anicteric sclera. Neck: Thick neck. Cardiac: Irregularly irregular with acceptable rates. Normal S1-S2. 1/6 systolic murmur. No rubs, or gallops. Pulmonary: Decreased breath sounds throughout, but otherwise clear. Abdomen: Soft, nontender, nondistended, with normoactive bowel sounds. No bruits noted. Extremities: No significant pitting. No cyanosis. Right radial cath site is clean, dry, and intact without erythema or discharge. 2+ right radial pulse. Psychiatric: Affect appears appropriate. Results & Data Vital Signs (Past 12 Hours) Vital Signs Temp Pulse Pulse Resp BP Pulse Ox 02/14/19 11:29 36.6 C 82 19 95/66 L 93 02/14/19 07:59 36.7 C 81 18 113/77 91 02/14/19 07:20 94 H 02/14/19 03:49 36.5 C 82 17 124/75 94 Intake & Output 02/12/19 02/13/19 02/14/19 02/15/19 06:59 06:59 06:59 06:59 Intake Total 2178.500 / 2178.500 2196.484 / 2196.484 1200 / 1200 Output Total 4050 / 4050 4900 / 4900 3850 / 3850 200 / 200 Balance -1871.500 / -1871.500 -2703.516 / -2703.516 -2650 / -2650 -200 / -200 Weight 122.3 kg Laboratory Results Laboratory Results - last 24 hr 02/14/19 06:51 Sodium 140 Potassium 4.0 Chloride 107 Carbon Dioxide 28 Anion Gap 5.0 BUN 13 Creatinine 0.92 Est Cr Clr Drug Dosing 115.7 Est GFR ( Amer) 102.9 Est GFR (Non-Af Amer) 88.8 BUN/Creatinine Ratio 14.5 Glucose 98 Calcium 9.4 Diagnostic Findings Telemetry personally reviewed: Atrial fibrillation. Heart rate mostly 90s to low 100s. Occasional Pauses less than 5 seconds while sleeping. Medications Administered Current Inpatient Medications Acetaminophen (Tylenol) 650 mg PO Q4H PRN PRN Reason: Pain or Fever Stop: 03/12/19 14:07 Al Hydrox/Mg Hydrox/Simethicone (Maalox) 15 ml PO Q4H PRN PRN Reason: Dyspepsia Stop: 03/12/19 14:07 Last Admin: 02/11/19 19:44 Dose: 15 ml Documented by: Apixaban (Eliquis) 5 mg PO BID@0600,1800 [facility] Stop: 03/14/19 15:59 Last Admin: 02/14/19 04:56 Dose: 5 mg Documented by: Aspirin (Ecotrin Ectab) 81 mg PO QAM [facility] Stop: 03/12/19 14:59 Last Admin: 02/14/19 08:08 Dose: 81 mg Documented by: Atorvastatin Calcium (Lipitor) 80 mg PO HS [facility] Stop: 03/12/19 20:59 Last Admin: 02/13/19 21:08 Dose: 80 mg Documented by: Clopidogrel Bisulfate (Plavix) 75 mg PO QAM [facility] Stop: 03/14/19 08:59 Last Admin: 02/14/19 08:07 Dose: 75 mg Documented by: Enalapril Maleate (Vasotec) 10 mg PO DAILY [facility] Stop: 03/12/19 14:59 Last Admin: 02/14/19 08:07 Dose: 10 mg Documented by: [facility] [place]: 03/16/19 12:29 Magnesium Hydroxide (Milk Of Magnesia) 30 ml PO Q12H PRN PRN Reason: Constipation Stop: 03/12/19 14:07 Metoprolol Tartrate (Lopressor) 50 mg PO BID [facility] Stop: 03/14/19 13:14 Last Admin: 02/14/19 08:07 Dose: 50 mg Documented by: Nitroglycerin (Nitrostat) 0.4 mg SL UD PRN PRN Reason: Chest Pain Stop: 03/12/19 14:07 Ondansetron HCl (Zofran) 4 mg IV Q6H PRN PRN Reason: Nausea Stop: 03/12/19 14:07 Polyethylene Glycol (Miralax Powder Packet) 17 gm PO DAILY PRN PRN Reason: Constipation Stop: 03/12/19 14:07 Tamsulosin HCl (Flomax) 0.4 mg PO [facility] Stop: 03/12/19 14:59 Last Admin: 02/14/19 08:07 Dose: 0.4 mg Documented by:
[2019-02-14] MEDS ORDERED: FUROSEMIDE 40 MG TAB PO SCH (12:30)
[2019-02-15 06:54] LABS: iSTAT Arterial Blood Gas HCO3 33 meg/L (19-24); iSTAT Arterial Blood Gas pCO2 53 mmHg (35-46); iSTAT Carbon Dioxide 34 mEq/l (24-31)
--- NOTE | 2019-02-22 12:34 | Discharge Summary ---
Date of Service February 14, 2019 Principal Diagnosis Atrial fib with RVR Discharge Exam Constitutional: WD/WN, vitals as above well developed and well nourished Eyes: PERRL, conjunctivae normal, anicteric sclerae ENMT: external ear and nose normal, oropharynx normal Neck: trachea midline, no thyromegaly Respiratory: normal respiratory effort, lungs clear to auscultation Cardiovascular: Rate/Rhythm: + irregularly irregular Vessels: normal peripheral pulses and dorsalis pedis pulses present Chest (Breasts): normal inspection/palpation of breasts Gastrointestinal (Abdomen): normal bowel sounds, soft, nontender, no hepatosplenomegaly Musculoskeletal: no cyanosis or clubbing, extremities motor strength 5/5 Skin: no rashes, warm and dry Neurologic: patellar DTR's 2+ bilat, sensation intact Psychiatric: A+Ox3, euthymic affect Lymphatic: no cervical or axillary lymphadenopathy Discharge Data Allergies Allergy/AdvReac Type Severity Reaction Status Date / Time morphine AdvReac Intermediate Nausea/vomi Verified 02/11/19 18:51 ting Consultations 02/10/19 10:11 ED Decision to Admit Stat 02/10/19 14:08 Consult Cardiology Routine Consult Case Management - Discharge Planning Routine Procedures Performed Operation Date: 02/11/19 08:00 Actual Procedures p Cath, Left with Cors and Vent(Right) - Shubham Villanueva MD s Drug Eluting Stent SGl Vessel - Shubham Villanueva MD s Drug Eluting Stent each ADDTL Vessel - Shubham Villanueva MD s Fraction Flow [place] SGL Ves - Shubham Villanueva MD s Fraction Flow [place] Addl Ves - Shubham Villanueva MD s Cath, Right and Left Heart - Shubham Villanueva MD s Cineradiography w/Routine Exam - Shubham Villanueva MD Ordered Studies 02/10/19 08:41 CT angio chest PE protocol Stat 02/11/19 14:00 CL Cath Imgs for PACS use only Routine Hospital Course (1) Acute systolic (congestive) heart failure: Echo on 02/10 showed EF 30-35% with akinesis of the basal septum and basal inferior wall. - Lasix 40mg IV on 02/10 & again on 02/11 - Will need to start/adjust good CHF medications, including beta-jordan, ACEi (as tolerated). - Will avoid Entresto given cost concerns; on flip side, may qualify for discount or free medication - to assist He presented with class 4 symptoms. He has diuresed quite nicely. He does not appear to be significantly hypervolemic. Start Lasix 40 mg p.o. once daily for maintenance. Low-sodium diet. Strict I&Os. Daily weights. Follow- up with Heart failure program. Mitral regurgitation: Follow over time. This may improve following diuresis. Repeat echo as an outpatient. Cardiomyopathy: Etiology could be due to ischemic heart disease versus tachycardia. Repeat echo as an outpatient. Would prefer metoprolol succinate in place of metoprolol tartrate but this was changed while hospitalized to tartrate by electrophysiology due to pauses. This can be readdressed as an outpatient. Metoprolol succinate may also help with compliance as he has been noncompliant with medical therapy in the past. Agree with AZAEL-inhibitor. Finances are a concern and therefore Entresto was not started. Hopefully with revascularization, heart rate control, and appropriate medical therapy, his LV systolic function may improve over time. If it does not, on optimal medical therapy, would then recommend consideration for ICD. (2) Atrial fibrillation with RVR: Presented with afib with RVR. - Rate being controlled now with Metoprolol Succinate 50 mg BID . Cardiology recommended cardioversion and AL. Overall, heart rate improved from presentation but still intermittently fast but also now with some pauses while sleeping (thought to be due to sleep apnea by electrophysiology). Because of this, electrophysiology has change metoprolol succinate to metoprolol tartrate. Continue anticoagulation for stroke risk reduction. He does not wish to undergo transesophageal echo and cardioversion now and would rather be discharged home. He is agreeable to consider outpatient cardioversion after 4 weeks of anticoagulation therapy. We discussed the fact that noncompliance with anticoagulation therapy would increase his stroke risk. (3) CAD (coronary artery disease): Stent approx. 15 years ago. - Left heart cath on 02/11 showed severe OM3 disease and possible lesions in the LAD & RCA with further report pending - Aggressive medical management - beta-jordan, statin, ASA He underwent PCI of his mid LAD and mid RCA on 02/11/2019. He tolerated the procedure well. Otherwise, he underwent PCI in 2003 during acute [place]. Continue anti-platelet therapy as outlined by Dr. Villanueva. Long-term anti-platelet therapy very important to reduce the risk of stent thrombosis. Continue triple therapy while hospitalized as outlined by Dr. Villanueva. Continue high-intensity statin therapy. Continue beta-jordan. (4) Hypertension: BP has been low-normal on current dose of beta-jordan. - Monitor (5) Tobacco abuse: Reports he will quit now. (6) BPH (benign prostatic hyperplasia): Continue tamsulosin (7) Morbid obesity: Counseled weight loss (8) DVT prophylaxis: as noted above. Total Time Total Time Spent Total Time Spent (In Minutes): 32 Total Time Includes: Examination of the Patient, Discharge Planning and Medication Reconciliation Discharge Plan Discharge Items Patient Disposition: Home - Self-Care Reason For Visit: SOB, CHEST TIGHTNESS, A FIB RVR Discharge Diagnosis: Fast heart rate Discharge Goals: Decrease discomfort Activity: Resume your previous activity Non-emergency contact: Primary Care Provider Call non-emergency contact if: you have any medication questions Follow-up/Referrals: Gutierrez Buckley MD [Physician] - 02/28/19 9:30 am (Please, follow up with Dr. Buckley on ThursdayFebruary 28 at 9:30 am. *The office is located in [address] of [facility]. This is the building located next to this hospital. If you need to change this appointment, call the office at [phone].) Wilman Beach PA-C [Primary Care Provider] - 02/18/19 10:30 am (Please, follow up with Wilman Beach PA-C on ThursdayFebruary 18 at 10:30 am. *If you need to change this appointment, call the office at [phone].) Torie Pereyra PA-C [Physician Rehabilitation Consultant] - Diet: Low Sodium (2gm) Addtl Provider Instructions: It appears you are agreeable to consider outpatient cardioversion after 4 weeks of anticoagulation therapy. Please continue with anticoagulation therapy as noncompliance will increase stroke risk. Start Lasix 40 mg p.o. once daily for maintenance. Low-sodium diet. Strict I&Os. Daily weights. Follow-up with Heart failure program. Recommend to stop smoking. Call 911 and go to the Emergency Room if: * You have tightness or pain in your chest that does not go away with rest or Nitroglycerin * You are very short of breath even with rest Call your doctor if any of the following symptoms or problems start or get worse: * Shortness of breath or difficulty breathing * Wake up at night short of breath * Chest pain * Cough * Swelling of your hands, fee, or legs * More fatigued or tired with your normal activity * Palpitations - sudden fast heart beats WEIGHT * Weigh yourself every morning after using the bathroom. * Use the same scale. * Wear the same amount of clothing. * Write your weight down on your chart. * Call your doctor if you gain more than 2-3 pounds in 1-2 days. MEDICATIONS * Use this discharge instruction sheet for instructions. * Take your medications at the time your doctor ordered. * Do not skip a dose of your medicines. * If you miss a dose of medicine, take as soon as possible, but DO NOT DOUBLE A DOSE. * Read your medicine information when you get home. * Know all of the side effects of your medicine. * Call your doctor's office if you have any side effects. * Be sure all of your doctors know what medicine and herbs you take (including cold, flu, and herbal medicine). * Pain Medicine: If you do not get relief from your pain, please call your doctor for help. Take the following with you to your follow-up doctor appointments: * Weight Chart * Medication List * List of questions Do not drink excessive alcohol, beer or wine. Prescriptions: New furosemide 40 mg Tablet 40 mg PO QAM Qty: 30 RF: 0 atorvastatin 40 mg Tablet 80 mg PO HS Qty: 30 RF: 0 enalapril maleate 10 mg Tablet 10 mg PO DAILY Qty: 30 RF: 0 clopidogrel 75 mg Tablet 75 mg PO QAM Qty: 30 RF: 0 metoprolol tartrate 50 mg Tablet 50 mg PO BID Qty: 30 RF: 0 Eliquis 5 mg Tablet 5 mg PO BID@0600,1800 Qty: 60 RF: 0 Continued aspirin 81 mg Tablet,Delayed Release (Dr/Ec) 81 mg PO QAM RF: 0 tamsulosin 0.4 mg capsule 0.4 mg PO QAM RF: 0 Discontinued simvastatin 80 mg tablet 80 mg PO QAM RF: 0 ramipril 2.5 mg capsule 2.5 mg PO QAM RF: 0 metoprolol tartrate 50 mg tablet 50 mg PO QAM RF: 0 ezetimibe 10 mg tablet 10 mg PO QAM RF: 0 Stand-Alone Forms: [employer]/Other Patient Handouts: A1C, Prediabetes, Diabetes Healthy Meals, Diabetes Carbs Discharge Orders: Discharge Order (Routine); Ordered 02/14/19 Ordered By: Fabrice Leblanc Admission Data Admit Date/Time: 02/10/19 15:11 Attending Provider: Fabrice Leblanc Admit Provider: Luis Leung Primary Care Provider: Wilman Beach Other Providers: Gutierrez Buckley Service: Telemetry Other Interventions: Discharge Summary Assessment (RN) Last Done: 02/14/19 15:02 DC Date/Time DO NOT enter until pt leaves facility: 02/14/19 15:47
== END 2019-02-14 15:47 | disposition home or self-care (01) | DRG 228 ==
LOC: ED 07:40 → 2S 07:40 → SUATTDRO 15:11
DX: E66.01 Morbid (severe) obesity due to excess calories; I50.21 Acute systolic (congestive) heart failure; Z68.37 Body mass index [BMI] 37.0-37.9, adult; I25.119 Atherosclerotic heart disease of native coronary artery with unspecified angina pectoris; Z79.82 Long term (current) use of aspirin; I42.9 Cardiomyopathy, unspecified; Z91.120 Patient's intentional underdosing of medication regimen due to financial hardship; I25.2 Old myocardial infarction; I34.0 Nonrheumatic mitral (valve) insufficiency; I48.91 Unspecified atrial fibrillation; Z95.5 Presence of coronary angioplasty implant and graft; N40.0 Benign prostatic hyperplasia without lower urinary tract symptoms; F17.210 Nicotine dependence, cigarettes, uncomplicated; E78.00 Pure hypercholesterolemia, unspecified; Z79.899 Other long term (current) drug therapy; I11.0 Hypertensive heart disease with heart failure

== ENCOUNTER 2020-03-26 08:13 | Observation (INO) ==
[2020-03-26] MEDS ORDERED: fentaNYL citrate 100 MCG/2 ML VIAL ONE (08:52)
[2020-03-26] MEDS ORDERED: MIDAZOLAM HCL 5 MG/ML 1 ML VIAL ONE (08:52)
[2020-03-26] MEDS ORDERED: CEFAZOLIN 250 MG/ML 1 GM VIAL ONE (08:52)
[2020-03-26] MEDS ORDERED: BACITRACIN INJ 50,000 UNIT VIAL ONE (08:53)
[2020-03-26] MEDS ORDERED: LIDOCAINE HCL 1% 20 ML VIAL ONE (08:53)
[2020-03-26] MEDS ORDERED: BACITRACIN OINT 0.9 GM PKT ONE (08:53)
--- NOTE | 2020-03-26 09:36 | Pre Anesthesia Assessment ---
Date of Service March 26, 2020 Pre Sedation Assessment Vital Signs Temp Pulse Resp BP Pulse Ox 03/26/20 08:27 36.6 C 59 L 18 163/93 H 97 Cardiovascular RRR, no murmur, no edema Respiratory normal respiratory effort, lungs clear to auscultation Pre-Sedation Airway Assessment Smoking Status: Former smoker Hx Sleep Apnea: No Short, Thick Neck: No Thyromental Distance: > or= 3.5 Finger Breadths Oral Cavity: + Dentures Mallampati Class: I ASA: ASA3 NPO Status Date of Last Intake of Fluids: 03/25/20 Time of Last Intake of Fluids: 21:00 Date of Last Intake of Solid Food: 03/25/20 Time of Last Intake of Solid Foods: 23:00 Procedure Planning Contraindications for Sedation: none Current Medications Reviewed: Yes Notes The planned sedation has been discussed with the patient. Informed Consent was obtained. I have identified the patient, determined the appropriateness of sedation and have assessed the patient immediately prior to the procedure. All medicine(s) and interventions are by my order.
--- NOTE | 2020-03-26 09:36 | History & Physical Bridge Note ---
Date of Service March 26, 2020 History & Physical Bridge Note I have examined the patient, reviewed the History & Physical and in the interval since the performance of the History & Physical I have noted the following changes of clinical significance: no changes noted. I reviewed the indications, procedure, risks and alternatives with the patient, answered all questions. Consent obtained. Patient understands and agrees to the procedure. I also reviewed the risks and use of sedation, patient understands and consent obtained.
[2020-03-26] MEDS ORDERED: KETOROLAC TROMETHAMINE 10 MG TABLET PO PRN (10:59)
[2020-03-26] MEDS ORDERED: ACETAMINOPHEN 325 MG TAB PO PRN (10:59)
--- NOTE | 2020-03-26 10:59 | Electrophysiology Report ---
Date of Service March 26, 2020 Electrophysiology Procedure Electrophysiology Procedure Report Preoperative diagnosis: Sick sinus syndrome Postoperative diagnosis: Same Procedure: Right subclavian venogram Dual-chamber pacemaker implantation Surgeon: Javier Holman MD Estimated blood loss: 20 cc Specimens: None Anesthesia: Local with sedation Procedure details: After obtaining informed consent for the procedure, the patient was brought to the laboratory and prepped and draped in the standard sterile manner. Dye was injected the right arm IV site to opacify the right subclavian vein. The subclavian vein was identified and found to be free of obstruction. The right prepectoral region was anesthetized with 1% lidocaine local anesthetic and right axillary venipuncture was performed by percutaneous technique and a guidewire placed through the right subclavian vein into the superior vena cava. The area was further infiltrated with 1% lidocaine local anesthetic and a 5 cm incision was made parallel to the right clavicle and 2 cm below it and carried down to the anterior pectoralis fascia. A pacemaker pocket was formed by blunt dissection anterior to the pectoralis fascia and a bacitracin-soaked sponge (50,000 units in 50 cc normal saline solution) was placed in the pocket. An 8 Chinese Med[employer] lead introducer was placed over the guidewire into the right subclavian vein, the dilator and guidewire were removed and a bipolar active fixation steroid tipped ventricular lead was advanced through the introducer into the superior vena cava. A guidewire was placed through the introducer and the introducer was stripped from the lead and guidewire. Another 8 Chinese Medtronic lead introducer was placed over the guidewire into the right subclavian vein, the dilator and guidewire were removed and a bipolar active fixation steroid tipped atrial lead was advanced through the introducer into the superior vena cava. A guidewire was placed back through the introducer and the introducer was stripped from the lead and guidewire. Using a curved stylette the ventricular lead was advanced through the right ventricular outflow tract into the pulmonary artery and then using a straight stylette was positioned in the right ventricular apex. The screw was extended fi fred the lead in position. Pacing and sensing thresholds were evaluated in bipolar configuration and are recorded on the implant data sheet. Using a curved stylette the atrial lead was positioned in the region of the atrial appendage and the screw extended fixing the lead in position. Pacing and sensing thresholds were evaluated in bipolar configuration and are recorded on the implant data sheet. Once the leads were in position they were attached to the anterior pectoralis fascia using 2 sutures of 2-0 silk around each lead collar. The bacitracin- soaked sponge was removed from the pocket, hemostasis was obtained, the pacemaker was attached to the leads and placed in the pocket with the leads coiled beneath it. The incision was closed with a running double subcutaneous closure of 3-0 Vicryl absorbable suture, followed by running subcuticular skin closure of 4-0 Vicryl absorbable suture. Bacitracin ointment was placed on the incision and a pressure dressing applied. [facility] Electrophysiology codes Pacing Procedure 1: Pacin Insert/Replace Pacer A & V Miscellaneous Procedures Procedure 1: EP Miscellaneous: 98741 Contrast injection for venography Procedure 2: EP Miscellaneous: 26936-26 Vengraphy, extremity PG Moderate Sedation Codes Moderate Sedation Codes Procedure 1: Sedation/Anesthesia: 38685 Mod Sedation by the same physician;Init15 Min Child Age 5 & Up Procedure 2: Sedation/Anesthesia: 12491 Mod Sedation by the same physician; Ea [id number] Minutes
[2020-03-26 12:15] LABS: Creatinine Clr Calc Pharmacy 100.5 ml/min; Est GFR (African American) 80.6; Est GFR (Non-African American) 69.5
--- NOTE | 2020-03-26 15:19 | Electrocardiogram Report ---
Test Reason : Blood Pressure : / mmHG Vent. Rate : 062 BPM Atrial Rate : 062 BPM P-R Int : 216 ms QRS Dur : 098 ms QT Int : 460 ms P-R-T Axes : 000 042 014 degrees QTc Int : 466 ms Atrial-paced rhythm with prolonged AV conduction with occasional Premature ventricular complexes Low voltage QRS Possible Old Inferior infarct Poor R wave progression, consider anterior NC vs. lead placement vs. LVH Abnormal ECG When compared with ECG of 26-MAR-2020 12:00, Premature ventricular complexes are now Present Confirmed by Reid Gallegos ([id number]) on 03/26/2020 3:19:33 PM Referred By: Javier Holman Confirmed By:Reid Gallegos
[2020-03-26] MEDS ORDERED: FUROSEMIDE 80 MG TAB PO SCH (21:00)
[2020-03-26] MEDS ORDERED: AMIODARONE 200 MG TAB PO SCH (21:00)
[2020-03-26] MEDS: carvediloL 6.25 MG TAB PO SCH (21:57)
[2020-03-26] MEDS: TAMSULOSIN HCL 0.4 MG CAP PO SCH (21:57)
[2020-03-26] MEDS: FUROSEMIDE 40 MG TAB PO SCH (21:58)
[2020-03-27] MEDS ORDERED: LEVOTHYROXINE SODIUM 50 MCG TABLET PO SCH ×2 (06:30)
--- NOTE | 2020-03-27 08:01 | XRay Report ---
TWO VIEW CHEST CLINICAL HISTORY: Status post pacemaker implantation. FINDINGS: PA and lateral chest radiographs are compared to study dated 10/19/2019 and correlated with chest CT dated 02/10/2019. A 2-lead cardiac pacemaker has been placed. This partially obscures the rig ht upper chest. Leads project over the right atrial appendage and the right ventricle. The heart is e nlarged. The pulmonary vasculature is noncongested. There is mild chronic elevation of the right osmar diaphragm with associated atelectasis. A 9 mm nodular density projecting over the left lower lung lik sravani represents a nipple shadow. The lungs and pleural spaces are otherwise clear. There is no pneumot horax. The bony thorax appears intact. IMPRESSION: 1. A 2-lead cardiac pacemaker has been placed as above. No pneumothorax is identified post procedure. 2. Cardiac enlargement without radiographic evidence of congestive failure. 3. There is no airspace consolidation or pleural effusion. 4. A 9 mm nodular density injected over the left lower lung on one of the PA views likely represents a nipple shadow. A repeat examination with nipple markers would be confirmatory. ACT 112: Negative or not required by law. Electronically signed by: Abelino Marcos M.D. 03/27/2020 7:59 AM
[2020-03-27] MEDS: FUROSEMIDE 40 MG TAB PO SCH (08:25)
[2020-03-27] MEDS: TAMSULOSIN HCL 0.4 MG CAP PO SCH (08:25)
[2020-03-27] MEDS: carvediloL 6.25 MG TAB PO SCH (08:35)
--- NOTE | 2020-03-27 08:59 | Cardiology Progress Note ---
Date of Service March 27, 2020 Assessment & Plan (1) Status post placement of cardiac pacemaker: He is doing well postop day #1, the site looks good, the pacer is working well and the x-ray looks good. He will be going home this morning. Admission and Anticipated Discharge Date Admission Date: March 26, 2020 Subjective He is feeling well in general, he has minor incisional discomfort but nothing significant. No palpitations or chest discomfort. He had some medication questions. Physical Exam Physical Exam: The incision looks clean and dry, no bleeding or ecchymosis Lungs are clear Cardiac rhythm is regular with no rub Results & Data ([facility]) Vital Signs (Past 12 Hours) Vital Signs Temp Pulse Pulse Resp BP BP Pulse Ox 03/27/20 07:51 36.8 C 60 20 149/74 H 98 03/27/20 04:00 36.5 C 61 20 151/87 H 92 03/27/20 00:45 61 03/26/20 23:50 36.5 C 60 20 146/88 H 95 Laboratory Results Comprehensive Metabolic Panel 03/26/20 Range/Units 11:48 Creatinine 1.12 (0.6-1.4) mg/dl Intake and Output 03/26/20 03/27/20 03/27/20 22:59 06:59 14:59 Intake Total 240 / 440 Balance 240 / 440 Intake: Oral 240 / 440 Other: # Unmeasured Voids 1 Diagnostic Findings Postop ECG: Atrial pacing appropriately Telemetry: Predominantly atrial pacing, no significant abnormality Chest x-ray: Good lead position, no pneumothorax Device evaluation: Excellent pacing and sensing characteristics PG Care Time/CCT Total # of Minutes Spent Total Time Spent with Patient: Total time spent is greater than 50% in coordination of care (as documented) at patient's floor/unit and/or counseling patient: Coding Level of Care Code None Diagnoses Status post placement of cardiac pacemaker Z95.0 CPT Codes Dual Lead Pacemaker System - 33322 ([id number])
[2020-03-27] MEDS ORDERED: CLOPIDOGREL BISULFATE 75 MG TAB PO SCH ×2 (09:00)
[2020-03-27] MEDS ORDERED: ATORVASTATIN 80 MG PO SCH (09:00)
[2020-03-27] MEDS ORDERED: ATORVASTATIN 40 MG TAB PO SCH (09:00)
[2020-03-27] MEDS ORDERED: SPIRONOLACTONE 25 MG TAB PO SCH ×2 (09:00)
[2020-03-27] MEDS ORDERED: ENALAPRIL MALEATE 5 MG TAB PO SCH ×2 (09:00)
--- NOTE | 2020-03-27 10:19 | Discharge Summary ---
Date of Service March 27, 2020 Admission HPI Per Admitting Provider This is a 65-year-old gentleman who has a history of coronary artery disease, atrial fibrillation, hypertension and congestive heart failure. He presented with an acute myocardial infarction and had a catheterization in 2003 in [place] and PCI was performed. He has had subsequent left ventricular dysfunction with his ejection fraction measuring 30 to 35% on February 10, 2019. He did have a catheterization February 11, 2019 where he had diffuse disease however the mid LAD was significant and he had PCI performed, his RCA was significant as well and a he had PCI performed there also. He presented in atrial fibrillation with a rapid heart rate on February 10, 2019, echocardiography March 08, 2019 showed ejection fraction of 35% and he remained in atrial fibrillation therefore cardioversion was performed March 17, 2019. He was in sinus rhythm for only a short time and reverted back to atrial fibrillation and was started on amiodarone with cardioversion once again on June 20, 2019. Echocardiography May 31, 2019 showed a mildly dilated left ventricle with ejection fraction of 40 to 45%. He has been followed in our heart failure program, and has been doing well with regard to that. He then presented January 23, 2020 with significant difficulty with exertion but no palpitations but was observed on electrocardiography that day to be in atrial flutter with a rapid ventricular response of about 120 bpm. He had missed anticoagulation and discussion was undertaken regarding AL guided cardioversion or waiting for cardioversion and he chose to wait, digoxin was added to his regimen to help with rate control, but that was stopped a short time later. As of February 06, 2020 he was in sinus rhythm with sinus bradycardia. He was having difficulty with exertion and not feeling well, an event monitor was placed and he had periods of severe bradycardia as well as pauses of up to 6 seconds in duration. We discontinued carvedilol and he continued to have bradycardia and pauses in excess of 3 seconds. His ejection fraction had improved somewhat but remains reduced, he continues to require beta-blockade for his cardiomyopathy and his atrial fibrillation which is infrequent but present. He therefore requires a pacemaker. Admission Exam (Per Admitting) Constitutional Constitutional: Alert, cooperative and in no distress. He is obese. HEENT: Unremarkable Neck: No jugular venous distention, carotid pulses are normal and equal bilaterally without bruits. Pulmonary: Clear to auscultation bilaterally. Cardiac: Regular rhythm with no murmur, gallop or rub. Abdomen: Soft, nontender with normal bowel sounds. Extremities: No edema. Distal pulses intact. Neurologic: No focal findings. Gait is steady. Skin: No rash, ecchymoses or petechiae. 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
[2020-03-27] MEDS ORDERED: AMIODARONE 200 MG TAB PO SCH (21:00)
== END 2020-03-27 11:55 | disposition home or self-care (01) ==
LOC: 2S 08:13 → EP 08:13

== ENCOUNTER 2025-01-23 20:56 | Observation (INO) ==
[2025-01-23 21:52] LABS: Base Excess VBG 5.6 mEq/L; HCO3 VBG 29 mmol/L; Oxygen Saturation VBG 88.7 %; PCO2 VBG 36 mmHg (38-50); PO2 VBG 54 mmHg; pH VBG 7.51 (7.36-7.41)
[2025-01-23] MEDS: SODIUM CHLORIDE 0.9% 1,000 ML IV SCH (21:55)
[2025-01-23 22:00] LABS: Basophils # (auto) 0.04 K/uL (0.00-0.20); Basophils % (auto) 0.6 %; Eosinophils # (auto) 0.06 K/uL (0.00-0.50); Eosinophils % (auto) 0.8 %; Hematocrit (blood only) 39.4 % (42.0-52.0); Hemoglobin 13.4 g/dl (14.0-18.0); Immature Granulocytes # (auto) 0.03 K/uL (0.01-0.20); Immature Granulocytes % (auto) 0.4 %; Lymphocytes # (auto) 1.39 K/uL (1.20-3.40); Lymphocytes % (auto) 19.6 %; Mean Corpuscular Hemoglobin 28.5 pg (25.0-34.0); Mean Corpuscular Volume 83.8 fL (80.0-100.0); Mean Platelet Volume 11.1 fL (9.4-12.4); Neutrophils # (auto) 5.08 K/uL (1.40-6.50); Neutrophils % (auto) 71.6 %; Platelet Count 167 K/uL (130-400); RDW Standard Deviation 42.4 fL (36.4-46.3)
[2025-01-23 22:10] LABS: Appearance Urine Clear (Clear); Bilirubin Urine Negative (Negative); Blood Urine Negative (Negative); Color Urine Yellow; Glucose Urine UA 3+ (Negative); Ketones Urine 1+ (Negative); Leukocyte Esterase Urine Negative (Negative); Nitrite Urine Negative (Negative); Protein Urine Negative (Negative); Specific Gravity Urine 1.038 (1.000-1.030); Urobilinogen Urine Positive (Negative); pH Urine 6.5 (4.5-7.5)
[2025-01-23 22:19] LABS: Troponin I High Sensitivity 18.9 pg/ml (0-20)
[2025-01-23 22:23] LABS: Albumin Level 3.8 gm/dl (3.4-5.0); Bilirubin,Total 1.9 mg/dl (0.2-1.0); Calcium 9.4 mg/dl (8.6-10.3); Magnesium 2.1 mg/dl (1.7-2.4); Potassium 4.1 mmol/L (3.5-5.1)
[2025-01-23 22:29] LABS: Thyroid Stimulating Hormone 1.623 uIu/ml (0.300-4.500)
[2025-01-23 22:44] LABS: Albumin Globulin Ratio 1.3 (0.9-2); BUN Creatinine Ratio 13.8 (10-20); Creatinine Clr Calc Pharmacy 92.1 ml/min; Total Protein 6.8 gm/dl (6.0-8.3)
--- NOTE | 2025-01-23 22:51 | Emergency Department Note ---
History of Present Illness General Chief complaint: Hypoglycemia Stated complaint: DIZZY, LIGHT HEADED, HYPOGLYCEMIA Time Seen by Provider: 01/23/25 21:24 History of Present Illness Maximum Pain Intensity: 9 This 70-year-old male presents the ER complaining of increasing weakness, fatigue polydipsia, polyuria, diplopia and 30 pound weight loss over the past few months. Patient also complains of some abdominal fullness and uncomfortableness. He is on Eliquis for history of a flutter. Patient denies chest pain, dyspnea, fever, chills, cough, congestion. No history of diabetes. No history of heart failure. Home Medications Medication Instructions Recorded Confirmed Type tamsulosin 0.4 mg capsule 0.4 mg PO BID 05/02/19 10/07/24 History aspirin 81 mg tablet,delayed 81 mg PO DAILY #30 tabs 03/27/20 10/07/24 Rx release (Adult Low Dose Aspirin) levothyroxine 100 mcg tablet 100 mcg PO DAILY 03/30/23 10/07/24 History carvedilol 6.25 mg tablet 6.25 mg PO BID #180 tabs 11/17/23 10/07/24 Rx apixaban 5 mg tablet (Eliquis) 5 mg PO BID@0600,1800 #180 tabs 01/11/24 10/07/24 Rx atorvastatin 80 mg tablet 80 mg PO QAM #90 tabs 06/20/24 10/07/24 Rx ezetimibe 10 mg tablet (Zetia) 10 mg PO DAILY #90 tabs 10/07/24 10/07/24 Rx enalapril maleate 5 mg tablet 5 mg PO QAM #90 tabs 11/08/24 Rx amiodarone 200 mg tablet 200 mg PO QPM Atrial fibrillation 11/11/24 Rx #90 tabs furosemide 40 mg tablet 80 mg (2 x 40 mg) PO BID #360 tabs 11/17/24 Rx Allergies Allergy/AdvReac Type Severity Reaction Status Date / Time morphine AdvReac Intermediate Nausea/vomi Verified 10/07/24 15:22 ting Past Med/Surg History Problem List (Updated 01/24/25 @ 00:35 by Luciana Galvan PA-C) Weakness (Acute) Diabetes mellitus, new onset (Acute) Heart failure with improved ejection fraction (HFimpEF) Gout Cellulitis Olecranon bursitis of right elbow Elbow pain Swelling of right upper extremity 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 Status post placement of cardiac pacemaker Paroxysmal atrial fibrillation Tachy-cande syndrome Sinus node dysfunction On amiodarone therapy Sinus bradycardia YANCEY (dyspnea on exertion) BPH (benign prostatic hyperplasia) Encounter for pre-operative examination Atrial fibrillation with RVR (Acute) CAD (coronary artery disease) (Acute) Hyperlipidemia (Acute) Hypertension (Acute) Morbid obesity Tobacco abuse (Acute) Mitral regurgitation Cardiomyopathy (Acute) Acute systolic (congestive) heart failure (Acute) S/P coronary artery stent placement Hypotension Atrial flutter Chronic systolic CHF (congestive heart failure) Depression Medical History (Updated 01/24/25 @ 00:35 by Luciana Galvan PA-C) Hypothyroidism History of cardioversion x 3 Osteoarthritis Chronic back pain GERD (gastroesophageal reflux disease) Borderline diabetes DIET CONTROLLED Anxiety Chronic obstructive pulmonary disease Cardiomyopathy Hyperlipidemia Hypertension Myocardial infarction 2003 Coronary artery disease ~2004- stent x1, PCI of his mid LAD and mid RCA on 02/11/19 Surgical History History of tooth extraction History of cardiac cath ~2003- 1 STENT, 02/11/2019 STENTS X2 Family History Brother Family history of diabetes mellitus Heart disease Mother Heart disease Social History Smoking Status: Former smoker packs per day: 1; Cigarettes Per Day: 1 PPD X 25 YEARS; Second Hand Exposure: No; Do You Dip or Chew Tobacco: No; Hx Alcohol Use: No Hx Substance Use: No Preferred Language: Occitan Communication Ability: Effective Oceanography Teacher Required: No Beliefs That Will Affect Care: None marital status: / Current Living Situation: Family Current Living Situation Comment: cares for 2 daughters, high school age, and older current occupational status: employed 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 Feels Safe at Home: Yes Childhood Exposure to Second-Hand Smoke: No Diet Comment: No unexpected weight gain or weight loss during the last year during the past year weight has: remained stable Assistive Devices: None Review of Systems A total of 10 systems reviewed and were otherwise negative Physical Exam Vital Signs Vital Signs - 24 hr 01/23/25 21:02 01/23/25 21:19 01/23/25 21:30 Temperature 36.9 C Temperature Source Temporal Artery Scan Pulse Rate 64 62 62 Pulse Rate from SpO2 Sensor Respiratory Rate 19 13 Respiratory Effort / Characteristics Non-Labored Spontaneous Respiratory Depth Normal Blood Pressure 134/73 133/91 Blood Pressure Mean 93 105 Pulse Oximetry 97 95 Oxygen Delivery Method Room Air Sepsis Recent Fever Within 48 Hours No Sepsis New/Unexplained Change in Mental Status N/A Sepsis Action Taken by Nursing No Action Required 01/23/25 22:14 01/23/25 23:00 01/23/25 23:30 Temperature Temperature Source Pulse Rate 64 60 60 Pulse Rate from SpO2 Sensor Respiratory Rate 21 18 17 Respiratory Effort / Characteristics Respiratory Depth Blood Pressure 141/81 H 122/78 138/86 Blood Pressure Mean 101 84 108 Pulse Oximetry 95 97 98 Oxygen Delivery Method Sepsis Recent Fever Within 48 Hours Sepsis New/Unexplained Change in Mental Status Sepsis Action Taken by Nursing 01/24/25 00:00 Temperature Temperature Source Pulse Rate 61 Pulse Rate from SpO2 Sensor 60 Respiratory Rate 21 Respiratory Effort / Characteristics Respiratory Depth Blood Pressure 122/78 Blood Pressure Mean 92 Pulse Oximetry 99 Oxygen Delivery Method Sepsis Recent Fever Within 48 Hours Sepsis New/Unexplained Change in Mental Status Sepsis Action Taken by Nursing VITALS: Vitals are noted on the nurse's note and reviewed by myself. Vital signs stable. GENERAL: White male, in no acute distress, nondiaphoretic, well-developed well- nourished. SKIN: The skin was without rashes, erythema, edema, or bruising. There is no tenting of the skin. Capillary reflex less than 2 seconds. HEAD: Normocephalic atraumatic. EARS: External auditory canals clear EYES: Pupils equal round and reactive to light and accommodation. Conjunctivae without injection, sclerae without icterus. Extraocular movements intact. NOSE: Patent, no discharge. MOUTH: Mucous membranes moist. Pharynx without erythema or exudate. Uvula midline. Airway patent. Tongue does not deviate. NECK: Supple without nuchal rigidity. No lymphadenopathy. No thyromegaly. Cervical spine is nontender. No JVD. HEART: Regular rate and rhythm LUNGS: Clear to auscultation bilaterally without wheezes, rales or rhonchi. No retractions or accessory muscle use. ABDOMEN: Positive bowel sounds x 4. Normal tympanic percussion. Soft, tender to palpation lower abdomen, without masses or organomegaly. Jorge sign negative. No guarding or rebound tenderness. No CVA tenderness MUSCULOSKELETAL: No muscle atrophy, erythema, or edema noted. NEURO: Patient was alert and oriented to person place and time. Normal sensation to light and sharp touch. No focal neurological deficits. Course Administered Medications Discontinued Medications Sodium Chloride (Nss) 1,000 mls @ 999 mls/hr IV .Q1H1M NIKO Stop: 01/23/25 23:00 Last Infusion: 01/23/25 23:07 Dose: Infused Documented By: Admin: 01/23/25 21:55 Dose: 999 mls/hr Documented By: BRANDEN Sodium Chloride (Nss) 1,000 mls @ 999 mls/hr IV .Q1H1M ONE Stop: 01/24/25 00:17 Last Admin: 01/23/25 23:31 Dose: 999 mls/hr Documented By: YUMIKO Insulin Human Regular (Novolin-R Insulin Per Unit Charge) 10 units IV NOW STA Stop: 01/23/25 23:18 Last Admin: 01/23/25 23:31 Dose: 10 units Documented By: YUMIKO Co-signed By: JOSE Ioversol (Optiray 320 100ml) 100 ml IV ONCE ONE Stop: 01/23/25 23:22 Last Admin: 01/23/25 23:22 Dose: 93 ml Documented By: CHAN Medical Decision Making Medical Records Attestation: I reviewed the patient's medical records. Home Medications Current Medication List: was personally reviewed by me Laboratory Data Attestation: I reviewed the patient's lab results. 01/23/25 21:10 01/23/25 21:10 Lab Results 01/23/25 01/23/25 01/23/25 Range/Units 21:10 21:35 21:58 WBC 7.10 (4.8-10.8) K/ul RBC 4.70 (4.70-6.10) M/uL Hgb 13.4 L (14.0-18.0) g/dl Hct 39.4 L (42.0-52.0) % MCV 83.8 (80.0-100.0) fL MCH 28.5 (25.0-34.0) pg MCHC 34.0 (32.0-36.0) g/dL RDW Std Deviation 42.4 (36.4-46.3) fL RDW Coeff of Micheal 14.0 (11.5-14.5) % Plt Count 167 (130-400) K/uL MPV 11.1 (9.4-12.4) fL Immature Gran % (Auto) 0.4 % Neut % (Auto) 71.6 % Lymph % (Auto) 19.6 % [place] % (Auto) 7.0 % Eos % (Auto) 0.8 % Baso % (Auto) 0.6 % Neut # (Auto) 5.08 (1.40-6.50) K/uL Lymph # (Auto) 1.39 (1.20-3.40) K/uL [place] # (Auto) 0.50 (0.11-0.59) K/uL Eos # (Auto) 0.06 (0.00-0.50) K/uL Baso # (Auto) 0.04 (0.00-0.20) K/uL Immature Gran # (Auto) 0.03 (0.01-0.20) K/uL VBG pH 7.51 H (7.36-7.41) VBG pCO2 36 L (38-50) mmHg VBG pO2 54 mmHg VBG HCO3 29 mmol/L VBG O2 Saturation 88.7 % VBG Base Excess 5.6 mEq/L Sodium 128 L (136-145) mmol/L Potassium 4.1 (3.5-5.1) mmol/L Chloride 90 L (98-107) mmol/L Carbon Dioxide 26 (21-32) mmol/L Anion Gap 12 H (3-11) BUN 15 (6-23) mg/dl Creatinine 1.09 (0.6-1.4) mg/dl Est Cr Clr Drug Dosing 92.1 ml/min eGFR 73.93 BUN/Creatinine Ratio 13.8 (10-20) Glucose 427 H* (70-99(Fasting)) mg/dl POC Glucose 444 H* (70-99) mg/dl Calcium 9.4 (8.6-10.3) mg/dl Magnesium 2.1 (1.7-2.4) mg/dl Total Bilirubin 1.9 H (0.2-1.0) mg/dl AST 16 (13-39) U/L ALT 18 (7-52) U/L Alkaline Phosphatase 134 H (34-104) U/L Troponin I High Sens 18.9 (0-20) pg/ml Total Protein 6.8 (6.0-8.3) gm/dl Albumin 3.8 (3.4-5.0) gm/dl Globulin 3.0 (2.5-4.0) gm/dl Albumin/Globulin Ratio 1.3 (0.9-2) TSH 1.623 (0.300-4.500) uIu/ml Urine Color Yellow Urine Appearance Clear (Clear) Urine pH 6.5 (4.5-7.5) Ur Specific [place] 1.038 H (1.000-1.030) Urine Protein Negative (Negative) Urine Glucose (UA) 3+ H (Negative) Urine Ketones 1+ H (Negative) Urine Blood Negative (Negative) Urine Nitrite Negative (Negative) Urine Bilirubin Negative (Negative) Urine Urobilinogen Positive H (Negative) Ur Leukocyte Esterase Negative (Negative) Urine Comment 01/23/25 Range/Units 23:04 WBC (4.8-10.8) K/ul RBC (4.70-6.10) M/uL Hgb (14.0-18.0) g/dl Hct (42.0-52.0) % MCV (80.0-100.0) fL MCH (25.0-34.0) pg MCHC (32.0-36.0) g/dL RDW Std Deviation (36.4-46.3) fL RDW Coeff of Micheal (11.5-14.5) % Plt Count (130-400) K/uL MPV (9.4-12.4) fL Immature Gran % (Auto) % Neut % (Auto) % Lymph % (Auto) % [place] % (Auto) % Eos % (Auto) % Baso % (Auto) % Neut # (Auto) (1.40-6.50) K/uL Lymph # (Auto) (1.20-3.40) K/uL [place] # (Auto) (0.11-0.59) K/uL Eos # (Auto) (0.00-0.50) K/uL Baso # (Auto) (0.00-0.20) K/uL Immature Gran # (Auto) (0.01-0.20) K/uL VBG pH (7.36-7.41) VBG pCO2 (38-50) mmHg VBG pO2 mmHg VBG HCO3 mmol/L VBG O2 Saturation % VBG Base Excess mEq/L Sodium (136-145) mmol/L Potassium (3.5-5.1) mmol/L Chloride (98-107) mmol/L Carbon Dioxide (21-32) mmol/L Anion Gap (3-11) BUN (6-23) mg/dl Creatinine (0.6-1.4) mg/dl Est Cr Clr Drug Dosing ml/min eGFR BUN/Creatinine Ratio (10-20) Glucose (70-99(Fasting)) mg/dl POC Glucose 396 H* (70-99) mg/dl Calcium (8.6-10.3) mg/dl Magnesium (1.7-2.4) mg/dl Total Bilirubin (0.2-1.0) mg/dl AST (13-39) U/L ALT (7-52) U/L Alkaline Phosphatase (34-104) U/L Troponin I High Sens (0-20) pg/ml Total Protein (6.0-8.3) gm/dl Albumin (3.4-5.0) gm/dl Globulin (2.5-4.0) gm/dl Albumin/Globulin Ratio (0.9-2) TSH (0.300-4.500) uIu/ml Urine Color Urine Appearance (Clear) Urine pH (4.5-7.5) Ur Specific [place] (1.000-1.030) Urine Protein (Negative) Urine Glucose (UA) (Negative) Urine Ketones (Negative) Urine Blood (Negative) Urine Nitrite (Negative) Urine Bilirubin (Negative) Urine Urobilinogen (Negative) Ur Leukocyte Esterase (Negative) Urine Comment Imaging Data Attestation: I personally reviewed and interpreted this imaging study as follows: Radiologist's Impression: Abdomen/Pelvis CT 01/23/25 21:46 Exam(s): CT ABDOMEN + PELVIS With Contrast IV Amt: 93 ML OPTIRAY 320 EXAM: CT Abdomen and Pelvis With Intravenous Contrast CLINICAL HISTORY: Reason for exam: 30lb wet loss, lower abd pain. TECHNIQUE: Axial computed tomography images of the abdomen and pelvis with intravenous contrast. CTDI is 28 mGy and DLP is 1429 mGy-cm. Automated exposure control was utilized for the study. A dose lowering technique was utilized adhering to the principles of ALARA. CONTRAST: Patient received 93 ML OPTIRAY 320 of IV contrast COMPARISON: No relevant prior studies available. FINDINGS: Lung bases: Unremarkable. No mass. No consolidation. ABDOMEN: Liver: Unremarkable. No mass. Gallbladder and bile ducts: Cholelithiasis without evidence of acute cholecystitis. No ductal dilation. Pancreas: Unremarkable. No mass. No ductal dilation. Spleen: Unremarkable. No splenomegaly. Adrenals: Unremarkable. No mass. Kidneys and ureters: Unremarkable. No solid mass. No hydronephrosis. Stomach and bowel: 4.4 cm duodenal diverticulum. Diverticulosis without evidence of diverticulitis. No obstruction. PELVIS: Appendix: No findings to suggest acute appendicitis. Bladder: Unremarkable. No mass. Reproductive: Mildly enlarged prostate. ABDOMEN and PELVIS: Intraperitoneal space: Unremarkable. No free air. No significant fluid collection. Bones/joints: Remote partially healed right posterior 11th rib fracture. No dislocation. Soft tissues: Unremarkable. Vasculature: Unremarkable. No abdominal aortic aneurysm. Lymph nodes: Unremarkable. No enlarged lymph nodes. IMPRESSION: No acute findings in the abdomen or pelvis. Chronic changes as described above Electronically signed by: Jonas López MD 01/24/25 00:10 AM Chest X-Ray 01/23/25 21:46 Exam(s): XR CXR 1 VIEW EXAM: XR Chest, 1 View CLINICAL HISTORY: Reason for exam: weakness. TECHNIQUE: Frontal view of the chest. COMPARISON: Prior chest x-ray from March 27, 2020. FINDINGS: There is an MRI compatible cardiac pacemaker in the right chest wall distal leads in the right atrium right ventricle. Lungs: Mild to moderate peribronchial thickening of the central bronchi. No consolidation. Pleural space: Unremarkable. No pneumothorax. Heart: Unremarkable. No cardiomegaly. Mediastinum: Unremarkable. Normal mediastinal contour. Bones/joints: Unremarkable. No acute fracture. IMPRESSION: Bronchitis, which may be of infectious or inflammatory etiologies. No consolidation or pleural effusion. Electronically signed by: Iliana Mark MD 01/23/25 23:58 PM MDM Narrative Prior records/ancillary studies reviewed and summarized above. Nursing notes reviewed. Additional history obtained from family The patient's history was concerning for increasing weakness, unintentional 30 pound weight loss and fatigue. Differential diagnosis: Etiologies such as metabolic, infection, hypo/hyperglycemia, electrolyte abnormalities, cardiac sources, intracerebral event, toxicologic, neurologic, as well as others were entertained. Physical examination: As above. ER treatment provided: IV Lock An order was placed for continuous cardiac monitoring. The monitor shows a rate of 60-100 with a sinus rhythm per my interpretation. IV fluids, insulin On reassessment the patient felt better. Diagnostics interpretation by me: ECG: Ordered for weakness EKG: Paced rhythm of [address]-T wave changes. Impression atrial paced rhythm rate of 62 independently interpreted by myself The labs Independently Interpreted by myself revealed hyperglycemia VBG was reviewed Imaging studies: Imaging was reviewed and read by radiology Consultation: A consultation was placed with the hospitalist. The case was discussed and diagnostics were reviewed. The patient was evaluated in the ER for further treatment. Exam and history seem consistent with new onset diabetes. CT scan was negative for acute findings per radiology. Blood sugar improved with insulin and IV fluids. Patient still feeling quite weak. This is a new diagnosis for him. Medicine was consulted and the case was discussed. Patient will be admitted to the medical service for further evaluation and workup for new onset diabetes. By the evaluation outlined above emergent etiologies such as infection, cardiac sources, intracerebral event, toxologic, neurologic, as well as others were deemed relatively unlikely. The pt informed about the findings as listed above. All questions were answered and pleased with the treatment. The chart was completed utilizing [employer] Speech voice recognition software. Grammatical errors, random word insertions, pronoun errors, and incomplete sentences are an occassional consequence of this system due to software limitations, ambient noise, and hardware issues. Any formal questions or concerns about the content, text, or information contained within the body of this dictation should be directly addressed to the physician assistant warehouse manager for clarification. Impression & Plan Diabetes mellitus, new onset, Weakness Discharge Plan Visit Data Chief Complaint: Hypoglycemia Stated Complaint: DIZZY, LIGHT HEADED, HYPOGLYCEMIA ED Provider: Abelino Pandey ED Midlevel Provider: Luciana Galvan Discharge Problem: Diabetes mellitus, new onset, Weakness Patient Disposition: Admitted As Inpatient Condition: Good Forms Stand Alone Forms: My [facility] Hover 3D Prescriptions Prescriptions: No Action carvedilol 6.25 mg tablet 6.25 mg PO BID Qty: 180 3RF Eliquis 5 mg tablet 5 mg PO BID@0600,1800 Qty: 180 3RF atorvastatin 80 mg tablet 80 mg PO QAM Qty: 90 3RF enalapril maleate 5 mg tablet 5 mg PO QAM Qty: 90 3RF amiodarone 200 mg tablet 200 mg PO QPM Qty: 90 3RF furosemide 40 mg tablet 80 mg PO BID Qty: 360 3RF levothyroxine 100 mcg tablet 100 mcg PO DAILY ezetimibe [Zetia] 10 mg tablet 10 mg PO DAILY Qty: 90 3RF tamsulosin 0.4 mg capsule 0.4 mg PO BID Patient Comments: Patient states he takes all meds everyother day aspirin [Adult Low Dose Aspirin] 81 mg tablet,delayed release (DR/EC) 81 mg PO DAILY Qty: 30 0RF Referrals Referrals: Wilman Beach PA-C [Primary Care Provider] -
[2025-01-23] MEDS: OPTIRAY 320 100ml IV ONE (23:22)
[2025-01-23] MEDS: SODIUM CHLORIDE 0.9% 1,000 ML IV ONE (23:31)
[2025-01-23] MEDS: NovoLIN-R INSULIN PER UNIT CHARGE IV STA (23:31)
--- NOTE | 2025-01-24 | XRay Report ---
Exam(s): XR CXR 1 VIEW EXAM: XR Chest, 1 View CLINICAL HISTORY: Reason for exam: weakness. TECHNIQUE: Frontal view of the chest. COMPARISON: Prior chest x-ray from March 27, 2020. FINDINGS: There is an MRI compatible cardiac pacemaker in the right chest wall distal leads in the right atrium right ventricle. Lungs: Mild to moderate peribronchial thickening of the central bronchi. No consolidation. Pleural space: Unremarkable. No pneumothorax. Heart: Unremarkable. No cardiomegaly. Mediastinum: Unremarkable. Normal mediastinal contour. Bones/joints: Unremarkable. No acute fracture. IMPRESSION: Bronchitis, which may be of infectious or inflammatory etiologies. No consolidation or pleural effusion. Electronically signed by: Iliana Mark MD 01/23/25 23:58 PM
--- NOTE | 2025-01-24 00:11 | CT Scan Report ---
Exam(s): CT ABDOMEN + PELVIS With Contrast IV Amt: 93 ML OPTIRAY 320 EXAM: CT Abdomen and Pelvis With Intravenous Contrast CLINICAL HISTORY: Reason for exam: 30lb wet loss, lower abd pain. TECHNIQUE: Axial computed tomography images of the abdomen and pelvis with intravenous contrast. CTDI is 28 mGy and DLP is 1429 mGy-cm. Automated exposure control was utilized for the study. A dose lowering technique was utilized adhering to the principles of ALARA. CONTRAST: Patient received 93 ML OPTIRAY 320 of IV contrast COMPARISON: No relevant prior studies available. FINDINGS: Lung bases: Unremarkable. No mass. No consolidation. ABDOMEN: Liver: Unremarkable. No mass. Gallbladder and bile ducts: Cholelithiasis without evidence of acute cholecystitis. No ductal dilation. Pancreas: Unremarkable. No mass. No ductal dilation. Spleen: Unremarkable. No splenomegaly. Adrenals: Unremarkable. No mass. Kidneys and ureters: Unremarkable. No solid mass. No hydronephrosis. Stomach and bowel: 4.4 cm duodenal diverticulum. Diverticulosis without evidence of diverticulitis. No obstruction. PELVIS: Appendix: No findings to suggest acute appendicitis. Bladder: Unremarkable. No mass. Reproductive: Mildly enlarged prostate. ABDOMEN and PELVIS: Intraperitoneal space: Unremarkable. No free air. No significant fluid collection. Bones/joints: Remote partially healed right posterior 11th rib fracture. No dislocation. Soft tissues: Unremarkable. Vasculature: Unremarkable. No abdominal aortic aneurysm. Lymph nodes: Unremarkable. No enlarged lymph nodes. IMPRESSION: No acute findings in the abdomen or pelvis. Chronic changes as described above Electronically signed by: Jonas López MD 01/24/25 00:10 AM
--- NOTE | 2025-01-24 00:38 | Emergency Department Note ---
ED Visit Note I was consulted by the Advanced Practice Provider. I personally made/approved the management plan and take responsibility for the patient management. I performed a substantive portion of the visit. This includes the aspects of: [-I independently interpreted the following studies:][Chest x-ray does not show pneumonia or CHF.] Patient presents with weakness. He has lost weight. Workup shows hyperglycemia. Given the presentation, complaints, findings, I believe hospitalization is indicated. The on-call hospitalist was consulted. .
--- NOTE | 2025-01-24 00:48 | History & Physical Report ---
Date of Service January 24, 2025 Assessment & Plan (1) Hyperglycemia due to diabetes mellitus: (2) Constipation: Plan 70-year-old male PMHx CAD s/p stent, cardiomyopathy, HTN, HLD, A- flutter/paroxysmal A-fib, depression, hypothyroidism, and BPH presenting for 3 months of constipation as well as 32 pound weight loss. ED evaluation reveals CBC without leukocytosis, H&H 13.4/39.4; VBG's pH 7.51, [id number]; CMP sodium 128, chloride 90, AG 12, initial glucose 424, repeat 396; bilirubin 1.9, alkaline phosphatase 134; troponin 18.9; TSH 1.623; UA with presence of glucose, ketones, and urobilinogen; CTAP no acute findings; CXR bronchitis but no consolidation or pleural effusion; EKG atrial paced rhythm and low voltage QRS at 62 bpm.; Provided with 2L NSS and 10 units of regular insulin IV in ED. #Hyperglycemia/New onset DM Presenting for worsening constipation, nausea, and 32 pound weight loss over the past 3 months. No history of diabetes, does have FHx of DMT2. Feeling better since his arrival to ED. - Glucose on arrival 424 -> 444, 396, 285 - CMP sodium 128 (corrected 136), chloride 90, AG 12; VBG's pH 7.41, PCO2 36; magnesium 2.1, phosphate 2.8 - BMP am - A1c pending - Trop WNL; Pending echo - UA with presence of ketones, glucose - T2DM diet - IVF LR @ 80 mL/hr x 1L - SSI w/ BSG target 110-160 mg/dL, CF 30, CR 10 - Lantus 15U x 1 now - Zofran prn N/V - Pharm glycemic management consult placed, appreciate assistance - adjust regimen as needed #Constipation Normal habits include 3-4 BM every 3-4 days. Last BM ~ 2-3 days [employer], small in amount. - CTAP without acute findings - Miralax prn, MoM prn #CAD s/p stent/HLD/HTN- EKG on arrival atrial paced rhythm @ 62 bpm, trop WNL; Atorvastatin, ASA, carvedilol, ezetimibe, furosemide - continue -- Pt on enalapril at home too, however only able to rx as IV form inpatient so HELD at time of admission #Aflutter/Afib- Amiodarone, Eliquis - continue #Hypothyroidism- TSH 1.623; Levothyroxine - continue #BPH- Tamsulosin - continue Dispo: Obs, med/tele VTE Prophylaxis: On Eliquis This document was dictated utilizing [employer]. Please excuse any grammatical errors that may be secondary to use of this software. Admission and Anticipated Discharge Date Admission Date: 01/24/2025 History of Present Illness Chief Complaint: Hyperglycemia Primary Care Provider: Wilman Beach PA-C 70-year-old male PMHx CAD s/p stent, cardiomyopathy, HTN, HLD, A- flutter/paroxysmal A-fib, depression, hypothyroidism, and BPH presenting for 3 months of constipation as well as 32 pound weight loss. States that over the past 3 months [employer], he has been having nausea "unlike anything before" and he has been having increased sleeping because this was the only time that he was not nauseous. He was having intense dry-heaving since that time, stating that every once in awhile he will have phlegm come up but no true emesis. He does have occasional abdominal pain, and constipation stating that he has a BM every 3-4 days, then he will go 3-4 times in a day and continue this pattern. He has some LLQ abdominal pain at time of admission, stating it is only present when being pushed on. He does have R flank pain from a recent fall in his bathroom where he states that his leg fell asleep and when he went to turn around his leg gave out on him and he fell backwards. He is having some pain here but it is a 2/10 on the pain scale. He has some numbness in his RLE at times if he is resting on it. States that he has some dysuria, thinking that he cut the end of his penis when wiping it with toilet paper. He states this only hurts when he urinates. No LUTS otherwise. He does feel more thirsty than usual and has had a decreased appetite since he has been so nauseous. Has SOB with exertion, not at rest. No CP, palpitations, diarrhea, LUTS, URI symptoms, F/C, syncope, or recent sick contacts. Does have family history of T2DM. ED evaluation reveals CBC without leukocytosis, H&H 13.4/39.4; VBG's pH 7.51, PCO2 36; CMP sodium 128, chloride 90, AG 12, initial glucose 424, repeat 396; bilirubin 1.9, alkaline phosphatase 134; troponin 18.9; TSH 1.623; UA with presence of glucose, ketones, and urobilinogen; CTAP no acute findings; CXR bronchitis but no consolidation or pleural effusion; EKG atrial paced rhythm and low voltage QRS at 62 bpm.; Provided with 2L NSS and 10 units of regular insulin IV in ED. Please see Dr. Swanson's attestation for adjustments/additions to treatment plan. Allergies Allergy/AdvReac Type Severity Reaction Status Date / Time morphine AdvReac Intermediate Nausea/vomi Verified 10/07/24 15:22 ting Home Medications Medication Instructions Recorded Confirmed Type tamsulosin 0.4 mg capsule 0.4 mg PO BID 05/02/19 01/24/25 History aspirin 81 mg tablet,delayed 81 mg PO DAILY #30 tabs 03/27/20 01/24/25 Rx release (Adult Low Dose Aspirin) levothyroxine 100 mcg tablet 100 mcg PO DAILY 03/30/23 01/24/25 History carvedilol 6.25 mg tablet 6.25 mg PO BID #180 tabs 11/17/23 01/24/25 Rx apixaban 5 mg tablet (Eliquis) 5 mg PO BID@0600,1800 #180 tabs 01/11/24 01/24/25 Rx atorvastatin 80 mg tablet 80 mg PO QAM #90 tabs 06/20/24 01/24/25 Rx ezetimibe 10 mg tablet (Zetia) 10 mg PO DAILY #90 tabs 10/07/24 01/24/25 Rx enalapril maleate 5 mg tablet 5 mg PO QAM #90 tabs 11/08/24 01/24/25 Rx amiodarone 200 mg tablet 200 mg PO QPM Atrial fibrillation 11/11/24 01/24/25 Rx #90 tabs furosemide 40 mg tablet 80 mg (2 x 40 mg) PO BID #360 tabs 11/17/24 01/24/25 Rx Past Med/Surg History Problem List Constipation Hyperglycemia due to diabetes mellitus Weakness (Acute) Diabetes mellitus, new onset (Acute) Heart failure with improved ejection fraction (HFimpEF) Gout Cellulitis Olecranon bursitis of right elbow Elbow pain Swelling of right upper extremity Cardiac pacemaker MCC current use of anticoagulant therapy Status post placement of cardiac pacemaker Paroxysmal atrial fibrillation Tachy-cande syndrome Sinus node dysfunction On amiodarone therapy Sinus bradycardia YANCEY (dyspnea on exertion) BPH (benign prostatic hyperplasia) Encounter for pre-operative examination Atrial fibrillation with RVR (Acute) CAD (coronary artery disease) (Acute) Hyperlipidemia (Acute) Hypertension (Acute) Morbid obesity Tobacco abuse (Acute) Mitral regurgitation Cardiomyopathy (Acute) Acute systolic (congestive) heart failure (Acute) S/P coronary artery stent placement Hypotension Atrial flutter Chronic systolic CHF (congestive heart failure) Depression Medical History Hypothyroidism History of cardioversion x 3 Osteoarthritis Chronic back pain GERD (gastroesophageal reflux disease) Borderline diabetes DIET CONTROLLED Anxiety Chronic obstructive pulmonary disease Cardiomyopathy Hyperlipidemia Hypertension Myocardial infarction 2003 Coronary artery disease ~2003- stent x1, PCI of his mid LAD and mid RCA on 02/11/19 Surgical History History of tooth extraction History of cardiac cath ~2003- 1 STENT, 02/11/2019 STENTS X2 Family History Brother Family history of diabetes mellitus Heart disease Mother Heart disease Social History Smoking Status: Current some day smoker Tobacco Type: Cigarettes packs per day: 1; Cigarettes Per Day: 1 PPD X 25 YEARS; Second Hand Exposure: No; Do You Dip or Chew Tobacco: No; Hx Alcohol Use: No Hx Substance Use: No Preferred Language: Tajik Communication Ability: Effective Blood And Plasma Laboratory Assistant Required: No Beliefs That Will Affect Care: None marital status: / Current Living Situation: Family Current Living Situation Comment: cares for 2 daughters, high school age, and older current occupational status: employed 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 Other Information That Helps Us Care for You: No Feels Safe at Home: Yes Safety Concerns: Feels Safe At This Time Childhood Exposure to Second-Hand Smoke: No Diet Comment: No unexpected weight gain or weight loss during the last year during the past year weight has: remained stable Assistive Devices: None Review of Systems Review of Systems: All systems reviewed & are unremarkable except as noted in Subjective Physical Exam Physical Exam: General: No acute distress Skin: Warm and dry Head: Normocephalic, atraumatic Eyes: PERRL, conjunctivae clear, sclera non-icteric ENT: External ear and ear canal without swelling; nose atraumatic; fair dentition, tongue normal appearance, pharynx normal Neck: Supple, no LAD Cardio: RRR, no M/G/R, S1 and S2 normal Resp: No respiratory distress, Lungs CTA in all lobes bilaterally, no wheezes, rales, or rhonchi Abdomen: Soft, symmetric, slight tenderness to palpation LLQ, mildly distended; No masses or hepatosplenomegaly; Bowel sounds normoactive MSK: No deformities; pulses palpable and equal; no edema. Neuro: Awake, alert; Sensation intact bilaterally; CN grossly intact Psych: Appropriate mood and affect; good judgement and insight. Results & Data Results & Data Vital Signs (Past 12 Hours) Vital Signs Temp Pulse Resp BP Pulse Ox O2 Del Method 01/24/25 00:00 61 21 122/78 99 01/23/25 23:30 60 17 138/86 98 01/23/25 23:00 60 18 122/78 97 01/23/25 22:14 64 21 141/81 H 95 01/23/25 21:30 62 13 133/91 95 01/23/25 21:19 62 01/23/25 21:02 36.9 C 64 19 134/73 97 Room Air Laboratory Results 01/24/25 01/23/25 01/23/25 00:36 23:04 21:58 WBC RBC Hgb Hct MCV MCH MCHC RDW Std Deviation RDW Coeff of Micheal Plt Count MPV Immature Gran % (Auto) Neut % (Auto) Lymph % (Auto) Cannon % (Auto) Eos % (Auto) Baso % (Auto) Neut # (Auto) Lymph # (Auto) Cannon # (Auto) Eos # (Auto) Baso # (Auto) Immature Gran # (Auto) VBG pH VBG pCO2 VBG pO2 VBG HCO3 VBG O2 Saturation VBG Base Excess Sodium Potassium Chloride Carbon Dioxide Anion Gap BUN Creatinine Est Cr Clr Drug Dosing eGFR BUN/Creatinine Ratio Glucose POC Glucose 285 H 396 H* Calcium Magnesium Total Bilirubin AST ALT Alkaline Phosphatase Troponin I High Sens Total Protein Albumin Globulin Albumin/Globulin Ratio TSH Urine Color Yellow Urine Appearance Clear Urine pH 6.5 Ur Specific [place] 1.038 H Urine Protein Negative Urine Glucose (UA) 3+ H Urine Ketones 1+ H Urine Blood Negative Urine Nitrite Negative Urine Bilirubin Negative Urine Urobilinogen Positive H Ur Leukocyte Esterase Negative Urine Comment 01/23/25 01/23/25 21:35 21:10 WBC 7.10 RBC 4.70 Hgb 13.4 L Hct 39.4 L MCV 83.8 MCH 28.5 MCHC 34.0 RDW Std Deviation 42.4 RDW Coeff of Micheal 14.0 Plt Count 167 MPV 11.1 Immature Gran % (Auto) 0.4 Neut % (Auto) 71.6 Lymph % (Auto) 19.6 Cannon % (Auto) 7.0 Eos % (Auto) 0.8 Baso % (Auto) 0.6 Neut # (Auto) 5.08 Lymph # (Auto) 1.39 Cannon # (Auto) 0.50 Eos # (Auto) 0.06 Baso # (Auto) 0.04 Immature Gran # (Auto) 0.03 VBG pH 7.51 H VBG pCO2 36 L VBG pO2 54 VBG HCO3 29 VBG O2 Saturation 88.7 VBG Base Excess 5.6 Sodium 128 L Potassium 4.1 Chloride 90 L Carbon Dioxide 26 Anion Gap 12 H BUN 15 Creatinine 1.09 Est Cr Clr Drug Dosing 92.1 eGFR 73.93 BUN/Creatinine Ratio 13.8 Glucose 427 H* POC Glucose 444 H* Calcium 9.4 Magnesium 2.1 Total Bilirubin 1.9 H AST 16 ALT 18 Alkaline Phosphatase 134 H Troponin I High Sens 18.9 Total Protein 6.8 Albumin 3.8 Globulin 3.0 Albumin/Globulin Ratio 1.3 TSH 1.623 Urine Color Urine Appearance Urine pH Ur Specific [place] Urine Protein Urine Glucose (UA) Urine Ketones Urine Blood Urine Nitrite Urine Bilirubin Urine Urobilinogen Ur Leukocyte Esterase Urine Comment Diagnostic Findings Abdomen/Pelvis CT 01/23/25 21:46 Exam(s): CT ABDOMEN + PELVIS With Contrast IV Amt: 93 ML OPTIRAY 320 EXAM: CT Abdomen and Pelvis With Intravenous Contrast CLINICAL HISTORY: Reason for exam: 30lb wet loss, lower abd pain. TECHNIQUE: Axial computed tomography images of the abdomen and pelvis with intravenous contrast. CTDI is 28 mGy and DLP is 1429 mGy-cm. Automated exposure control was utilized for the study. A dose lowering technique was utilized adhering to the principles of ALARA. CONTRAST: Patient received 93 ML OPTIRAY 320 of IV contrast COMPARISON: No relevant prior studies available. FINDINGS: Lung bases: Unremarkable. No mass. No consolidation. ABDOMEN: Liver: Unremarkable. No mass. Gallbladder and bile ducts: Cholelithiasis without evidence of acute cholecystitis. No ductal dilation. Pancreas: Unremarkable. No mass. No ductal dilation. Spleen: Unremarkable. No splenomegaly. Adrenals: Unremarkable. No mass. Kidneys and ureters: Unremarkable. No solid mass. No hydronephrosis. Stomach and bowel: 4.4 cm duodenal diverticulum. Diverticulosis without evidence of diverticulitis. No obstruction. PELVIS: Appendix: No findings to suggest acute appendicitis. Bladder: Unremarkable. No mass. Reproductive: Mildly enlarged prostate. ABDOMEN and PELVIS: Intraperitoneal space: Unremarkable. No free air. No significant fluid collection. Bones/joints: Remote partially healed right posterior 11th rib fracture. No dislocation. Soft tissues: Unremarkable. Vasculature: Unremarkable. No abdominal aortic aneurysm. Lymph nodes: Unremarkable. No enlarged lymph nodes. IMPRESSION: No acute findings in the abdomen or pelvis. Chronic changes as described above Electronically signed by: Jonas López MD 01/24/25 00:10 AM Chest X-Ray 01/23/25 21:46 Exam(s): XR CXR 1 VIEW EXAM: XR Chest, 1 View CLINICAL HISTORY: Reason for exam: weakness. TECHNIQUE: Frontal view of the chest. COMPARISON: Prior chest x-ray from March 27, 2020. FINDINGS: There is an MRI compatible cardiac pacemaker in the right chest wall distal leads in the right atrium right ventricle. Lungs: Mild to moderate peribronchial thickening of the central bronchi. No consolidation. Pleural space: Unremarkable. No pneumothorax. Heart: Unremarkable. No cardiomegaly. Mediastinum: Unremarkable. Normal mediastinal contour. Bones/joints: Unremarkable. No acute fracture. IMPRESSION: Bronchitis, which may be of infectious or inflammatory etiologies. No consolidation or pleural effusion. Electronically signed by: Iliana Mark MD 01/23/25 23:58 PM Medications Administered 2L NSS Insulin human regular 10 units IV ECG Additional Comments: Atrial paced rhythm, low voltage QRS 62 bpm, PA 202, QRS 104, QT/QTc 442/448, PRT*/- Code Status & VTE Plan Code Status Full Supervising Physician Co-Signing Physician Notes Attending Attestation & Admission Note: Pt seen/examined, chart reviewed, admit care plan d/w MAYELA Galvan. I agree w/ the donaldson components of her admission documentation. 70yo male with CAD s/p stent, ischemic cardiomyopathy with EF 45-50%, pacemaker status, HTN, Hyperlipidemia, A-flutter/paroxysmal A-fib, depression, hypothyroidism, tobacco dependence, and BPH who presented with several months of constipation, 30+ pounds of weight loss, severe nocturia, severe polyuria, dry mouth, and polydipsia. Upon ER presentation today his glucose was 427. The last hemoglobin a1c was in 2021 showing mild T2DM with hemoglobin a1c of 6.6%. Denies any chest pain, although he has baseline dyspnea on exertion. When discussing his diabetes he voices that he does not want to take insulin at home. PMH/PSH/allergies/meds/sochx/famhx - reviewed VSS, afebrile gen - obese, NAD, laying in bed; he c/o right leg numbness and discomfort - chronic issue neck - no JVD mouth - MM severely dry heart - RRR, s1 s2, no murmur lungs - CTA b/l abd - soft NT ND BS+, no HSM ext - no edema, pulses b/l feet 1+; popliteal pulse right leg about 1+; cap refill <2 sec right foot neuro - strength 5/5 x b/l LEs labs reviewed imaging reviewed EKG - atrial paced rhythm A/P: 1. severe hyperglycemia 2nd to uncontrolled T2DM; did tell patient he had full- blown T2DM in 2021 but at that time a1c was reasonable 2. 30+ pounds of weight loss - 2nd to hyperglycemia; can't rule out other factors (GI tract malignancy given change in bowel habits) 3. constipation for several months 4. CAD, h/o stent 5. ischemic cardiomyopathy - compensated 6. pacemaker status 7. h/o a.fib/a.flutter on Eliquis 8. RLE numbness - 2nd to lumbar spine DJD? 2nd to arterial disease of RLE (PAD)? other? -start basal-bolus insulin (lantus-novolog) -pharmacy glycemic team consult -diabetes education consult -check Hba1c -consider checking c-peptide level; is patient a "Type 1.5" diabetic? -IV hydration -check arterial duplex study of RLE; if normal then obtain lumbar spine imaging -given chronic YANCEY and his CAD consider updating his echo (last one I can find in EMR is 2021) -weight loss - CT a/p without cause for his weight loss; although weight loss is likely due to severe hyperglycemia from his DM, consider updating his colonoscopy shortly after discharge given his change in bowel habits -I had counseled Mr Rodriguez that it is almost certain he will need insulin therapy at discharge and that oral hypoglycemics likely would not be enough to control his DM Ehsan Swanson MD PG Care Time/CCT Total # of Minutes Spent Total Time Spent with Patient: Total time spent is greater than 50% in coordination of care (as documented) at patient's floor/unit and/or counseling patient: Coding Level of Care Code 56671 INT INP/OBS CARE 375MIN Diagnoses Hyperglycemia due to diabetes mellitus E11.65 Constipation K59.00
[2025-01-24] MEDS ORDERED: GLUCAGON FOR INJ 1 MG VIAL SQ PRN (01:43)
[2025-01-24] MEDS ORDERED: CARBOHYDRATES FOR HYPOGLYCEMIA PO PRN (01:43)
[2025-01-24] MEDS ORDERED: DEXTROSE 50% 50 ML SYRINGE IV PRN (01:43)
[2025-01-24] MEDS ORDERED: GLUCOSE 10 TAB/TUBE PO PRN (01:43)
[2025-01-24] MEDS ORDERED: PHARMACY GLYCEMIC MGMT CONSULT PRN (01:43)
[2025-01-24] MEDS ORDERED: GLUCOSE 40% GEL 15 GM TUBE PO PRN (01:43)
[2025-01-24] MEDS: INSULIN ASPART PER UNIT CHARGE SC STA (02:32)
[2025-01-24] MEDS: LANTUS PER UNIT CHARGE SQ STA (02:33)
[2025-01-24] MEDS ORDERED: MAGNESIUM HYDROXIDE SUSP 30 ML UDC PO PRN (05:55)
[2025-01-24] MEDS ORDERED: POLYETHYLENE (MIRALAX) 17 GM PACK PO PRN (05:55)
[2025-01-24] MEDS ORDERED: ONDANSETRON INJ 2 MG/ML 2 ML VIAL IV PRN (05:55)
[2025-01-24] MEDS ORDERED: MELATONIN 3 MG TAB PO PRN (05:55)
[2025-01-24] MEDS: LACTATED RINGER'S 1,000 ML IV SCH (06:18)
[2025-01-24] MEDS: APIXABAN 5 MG TABLET PO SCH (06:36)
[2025-01-24] MEDS: LEVOTHYROXINE SODIUM 100 MCG TABLET PO SCH (06:36)
[2025-01-24 07:35] LABS: Estimated Average Glucose 392 mg/dl; Hemoglobin A1C 15.3 % (4.5-5.6)
[2025-01-24] MEDS: EZETIMIBE 10 MG TAB PO SCH (08:02)
[2025-01-24] MEDS: carvediloL 6.25 MG TAB PO SCH (08:02)
[2025-01-24] MEDS: ASPIRIN 81 MG ECTAB PO SCH (08:02)
[2025-01-24] MEDS: TAMSULOSIN HCL 0.4 MG CAP PO SCH (08:02)
[2025-01-24] MEDS: INSULIN ASPART PER UNIT CHARGE SC SCH (08:02)
[2025-01-24] MEDS: ATORVASTATIN 40 MG TAB PO SCH (08:02)
[2025-01-24] MEDS: FUROSEMIDE 80 MG TAB PO SCH (08:02)
--- NOTE | 2025-01-24 08:02 | Hospitalist Progress Note ---
Date of Service January 24, 2025 Assessment & Plan (1) Hyperglycemia due to diabetes mellitus: (2) Constipation: (3) Diabetes mellitus, new onset: (4) Heart failure with improved ejection fraction (HFimpEF): (5) CAD (coronary artery disease): (6) Status post placement of cardiac pacemaker: Plan Colin is a 70 year old man with a pmh of CAD s/p stent, [place] in 2003, HLD, HTN, aflutter/afib, depression, and BPH presenting with 3 month hx nausea, fatigue, dizziness, polydipsia, polyuria, and 35 lb weight loss secondary to new T2DM diagnosis with A1C of 15.3. #Hyperglycemia secondary to new diagnosis of DMT2 - POC glucose 427 at admission, now 266 - A1C 15.3, previously 6.6 in 2021 but not treated with medication - Anion gap 12, Na - 128, Cl - 90, replenished with LR. - Pharmacy is managing his insulin with glucose goals of 110-180 - development educator consulted, network field engineer consulted - pt is resistant to injectables due to fear of needs - can trial metformin, AZAEL when sugars are steadier - contact insurance for CGM approval. Patient lacks a smartphone for CGM manuel #Constipation - pt reports normal BM for him is every 3-4 days but stool quantity has decreased - last BM 2 days prior - start miralax #CAD/Afib - EKG essentially unchanged from October - atrially paced at 62. - continue home meds of amiodarone and Eliquis #burning urination with increased urination - urinalysis negative for nitrates or leukocytes. + ketones and glucose. - hx of BPH - can secondary to glycosuria or UTI without bacteremia on UA, culture urine to check for bacterial growth #Paresthesias of R leg - pt reports R leg falls asleep often with numbness and tingling, not unique to current hospitalization. Pt noted that he has had this since stent placement through R femoral years ago. No edema, erythema. Palpable pulses. - lower extremity duplex showed normal ankle brachial index, measuring 1.17 on the R and 1.09 on the left - low concern for cellulitis and DVT given physical exam and blood thinner at baseline - Can be secondary to diabetic neuropathy or stem from lower back. Consider outpatient followup Admission and Anticipated Discharge Date Admission Date: January 24, 2025 Supervising Physician Co-Signing Physician Notes I personally examined the patient and verified donaldson points of history and exam, discussed case, and agree with decision making and plan documented by Dr. Tate and Gissel CAT. Patient is a 70-year-old male with complex cardiac history on admission for new diagnosis with diabetes. A1c 15.3%, symptomatic with related weight loss, fatigue, polydipsia/polyuria due to hyperglycemia. Patient had improvement of blood glucose levels with insulin therapy, potassium repleted. Patient anxious to return home as he cares for his stepdaughter with special needs. He is worried about injectable medications. Discussed anticipation of basal insulin on discharge, patient will benefit from CGM, will start metformin in morning. Chronic right lumbar radicular symptoms, had lower extremity arterial duplex and ABIs suggesting normal perfusion, will check lumbar x-ray. Anticipate diabetic education and nutrition to assist with health literacy. Subjective 70-year-old male PMHx CAD s/p stent, cardiomyopathy, HTN, HLD, A- flutter/paroxysmal A-fib, depression, and BPH presenting for dizziness, nausea, dry mouth, increased urination, low appetite. He has had a 35 lb wl over the last 3 months. ED evaluation reveals CBC without leukocytosis, H&H 13.4/39.4; VBG's pH 7.51, [id number]; CMP sodium 128, chloride 90, AG 12, initial glucose 424, repeat 396; bilirubin 1.9, alkaline phosphatase 134; troponin 18.9; TSH 1.623; UA with presence of glucose, ketones, and urobilinogen; CTAP no acute findings; CXR bronchitis but no consolidation or pleural effusion; EKG atrial paced rhythm and low voltage QRS at 62 bpm. Provided with 2L NSS and 10 units of regular insulin IV in ED. Last BM 2 days ago, he has been constipated and having smaller bowel movements. Since being at the hospital, he is feeling a lot better and his appetite is back. He requests to be discharged PR[facility] so he can go home to take care of his 2 children. Physical Exam Physical Exam: General: Patient is laying on his side. NAD, non-toxic in appearance, answers questions appropriately. Skin: warm, dry, intact HEENT: NC/AT, anicteric sclera, conjunctiva without injection, moist mucus membranes. Heart: +S1/S2, regular, no m/r/g. Lungs: diminished air entry bilaterally. Crackles at the base of the lungs. Abd: hyperactive BS, soft, distended, ND, NT. Ext: warm, no clubbing, erythema, cyanosis or edema. Palpable pulses bilaterally. Results & Data Results & Data Vital Signs (Past 12 Hours) Vital Signs Temp Pulse Pulse Resp BP BP Pulse Ox 01/24/25 07:56 36.6 C 70 20 107/72 96 01/24/25 07:38 76 01/24/25 05:40 36.5 C 68 20 143/85 H 97 01/24/25 04:00 78 18 125/87 97 01/24/25 03:00 78 18 98 01/24/25 02:00 62 17 119/69 94 01/24/25 01:30 61 13 136/70 96 01/24/25 01:05 61 01/24/25 01:00 67 22 134/79 98 01/24/25 00:30 63 16 119/66 97 01/24/25 00:00 61 21 122/78 99 01/23/25 23:30 60 17 138/86 98 01/23/25 23:00 60 18 122/78 97 01/23/25 22:14 64 21 141/81 H 95 01/23/25 21:30 62 13 133/91 95 01/23/25 21:19 62 01/23/25 21:02 36.9 C 64 19 134/73 97 O2 Del Method 01/24/25 07:56 Room Air 01/24/25 07:38 01/24/25 05:40 Room Air 01/24/25 04:00 Room Air 01/24/25 03:00 Room Air 01/24/25 02:00 01/24/25 01:30 01/24/25 01:05 01/24/25 01:00 01/24/25 00:30 01/24/25 00:00 01/23/25 23:30 01/23/25 23:00 01/23/25 22:14 01/23/25 21:30 01/23/25 21:19 01/23/25 21:02 Room Air Resident Activity Tracking Resident Involvement: Resident Care Provided Care Provided: Adult Hospital Medicine (5) CAD (coronary artery disease) Associated angina: without angina Coronary Disease-Associated Artery/Lesion type: [place] artery [place] vs. transplanted heart: [place] heart Qualified Code(s): I25.10 - Atherosclerotic heart disease of [place] coronary artery without angina pectoris
--- NOTE | 2025-01-24 08:29 | Ultrasound Report ---
EXAM: US arterial duplex LE RT CLINICAL HISTORY: Pain, numbness right lower extremity. TECHNIQUE: Ultrasound examination of the right lower extremity arteries with ankle brachial indices was performed in real time and duplex. One or more of the following were performed- spectral analysis, resistive index, waveform analysis, and pulsed Doppler. COMPARISON: None. FINDINGS: Vessel Flow Pattern Right Peak Velocity Right (cm/sec) Common Femoral Artery (PATIENT CENTERED CARE SPECIALIST) Triphasic 92 cm/s Deep Femoral Artery (DPA) Triphasic 81 cm/s Superficial Femoral Artery (SFA) Triphasic 92.6 cm/s Superficial Femoral Artery (SFA) Mid Triphasic 79.5 cm/s Superficial Femoral Artery (SFA) Distal Triphasic 61.9 cm/s Popliteal Artery (POP A) Proximal Triphasic 59.7 cm/s Popliteal Artery (POP A) Distal Triphasic 53.3 cm/s Posterior Tibial Artery (SOFTWARE ENGINEER MOBILE) Proximal Triphasic 30 cm/s Posterior Tibial Artery (SOFTWARE ENGINEER MOBILE) Mid Triphasic 31 cm/s Posterior Tibial Artery (SOFTWARE ENGINEER MOBILE) Distal Triphasic 22 cm/s Anterior tibial artery Proximal Triphasic 58.4 cm/s Anterior tibial artery Mid Triphasic 75.6 cm/s Anterior tibial artery Distal Triphasic 61.3 cm/sec Peroneal artery Proximal Triphasic 47.3 cm/s Peroneal artery Mid Triphasic 58.3 cm/s Peroneal artery Distal Triphasic 44.0 cm/s Dorsalis Pedis Artery (DPA) Distal Triphasic 49.2 cm/s The ankle brachial index is normal, measuring 1.17 on the right and 1.09 on the left. Normal PVR waveform as per the attached tech sheet. The arterial waveforms are appreciable (triphasic). The peak systolic velocities are within normal limits. Small scattered atheromatous plaques are seen, yet no morphologically or hemodynamically significant stenotic lesions. No occluded arterial segments. No significant collateral circulation noted, indicative of chronic arterial occlusion. No aneurysm or dissection, or arteriovenous malformation. IMPRESSION: 1. No acute abnormality identified. 2. No hemodynamically significant stenotic lesions. No occluded arterial segments. 3. Small scattered atherosclerotic plaques in the right lower limb arteries. 4. Normal SOHAIL bilaterally, suggesting normal perfusion. Electronically signed by Shankar Paul 01-24-2025 08:29 AM
[2025-01-24 08:35] LABS: Albumin Level 3.7 gm/dl (3.4-5.0); Bilirubin,Total 1.1 mg/dl (0.2-1.0); Calcium 8.7 mg/dl (8.6-10.3); Potassium 3.4 mmol/L (3.5-5.1)
[2025-01-24 08:41] LABS: Albumin Globulin Ratio 1.5 (0.9-2); BUN Creatinine Ratio 14.1 (10-20); Creatinine Clr Calc Pharmacy 116.1 ml/min; Globulin 2.4 gm/dl (2.5-4.0); Total Protein 6.1 gm/dl (6.0-8.3)
[2025-01-24] MEDS: LANTUS PER UNIT CHARGE SC ONE (12:38)
[2025-01-24] MEDS: INSULIN HUMAN REGULAR PER UNIT 10 UNITS in SYRINGE 9.9 ML IV ONE (12:41)
--- NOTE | 2025-01-24 14:19 | Pharmacy Report ---
Pharmacy Glycemic Short Note 2 - Date of Service January 24, 2025 - Glycemic Short BSG Results (Last 24 hours): 01/23/25 01/23/25 01/24/25 21:10 23:04 00:36 Glucose 427 H* POC Glucose 444 H* 396 H* 285 H 01/24/25 01/24/25 01/24/25 02:17 03:50 05:45 Glucose POC Glucose 376 H* 373 H* 318 H* 01/24/25 01/24/25 01/24/25 07:27 07:37 11:33 Glucose 266 H POC Glucose 294 H 312 H* 01/24/25 01/24/25 11:34 14:08 Glucose POC Glucose 330 H* 210 H OUTPATIENT ANTIDIABETIC REGIMEN: * none * HbA1c 15.3% (01/23/25) ASSESSMENT: * Colin is a 70 year old male admitted with constipation, nausea, weight loss with a diagnosis of new onset diabetes mellitus. Pharmacy has been consulted to assist with glycemic management while inpatient. * Fasting BSG this AM elevated, received 20 units of Lantus early this morning after an IV bolus yesterday evening. Hesitant to give more Lantus this AM, but BSGs still elevated and increased further at lunchtime. Tightened NovoLog to a weight based stress of 3 and Lantus at a weight based stress of 2. Additional IV bolus given to help bring down BSGs with lunch. PLAN FOR INPATIENT GLYCEMIC CONTROL: * Hold outpatient oral diabetes medications * Basal insulin * Lantus 20 units SQ x1 @ 0233 * Lantus 20 units SQ x1 with lunch * Lantus 0-20 units SQ HS based on BSG (see eMAR for additional details) * Bolus insulin * NovoLog per scale ACHS or Q6hrs while NPO * Goal Range: Low 110 mg/dL - High 180 mg/dL * Correction Factor: 15 mg/dL/unit * Nutritional / Prandial insulin per carb ratio of 1 unit per 5 grams CHO consumed
[2025-01-24] MEDS: POTASSIUM CHLORIDE CRTAB 20 MEQ TABCR PO STA (14:53)
--- NOTE | 2025-01-24 17:53 | XRay Report ---
EXAMINATION: X-ray lumbar spine 2-3 view CLINICAL HISTORY: Right radicular pain PRIORS: None TECHNIQUE: AP, lateral and coned L5-S1 view. FINDINGS: Overlying bowel gas and stool obscures fine bone detail. Mild osseous demineralization noted. Alignment is maintained. Mild to moderate facet hypertrophic changes present at L4-L5 and L5-S1. No compression fracture. Moderate loss of intervertebral disc space height noted at L5-S1 and L1-L2 through L3-L4. Posteriorly situated osteophytes noted at L2-L3 through L4-L5 With neuroforaminal stenosis on the current examination. Degenerative changes of sacroiliac joints within the [id number]. No high-grade compression fracture. Atherosclerotic disease of the abdominal aorta noted. IMPRESSION: 1. No plain film evidence of an acute osseous abnormality. 2. Degenerative changes present above Electronically signed by Halley Alvarado 01-24-2025 5:53 PM
[2025-01-24] MEDS: AMIODARONE 200 MG TAB PO SCH (19:27)
[2025-01-24] MEDS: LANTUS PER UNIT CHARGE SC SCH (20:24)
[2025-01-25 07:42] LABS: Basophils # (auto) 0.04 K/uL (0.00-0.20); Basophils % (auto) 0.6 %; Eosinophils # (auto) 0.11 K/uL (0.00-0.50); Eosinophils % (auto) 1.7 %; Hematocrit (blood only) 37.3 % (42.0-52.0); Hemoglobin 12.8 g/dl (14.0-18.0); Immature Granulocytes # (auto) 0.04 K/uL (0.01-0.20); Immature Granulocytes % (auto) 0.6 %; Lymphocytes % (auto) 27.2 %; Mean Corpuscular Hemoglobin 29.1 pg (25.0-34.0); Mean Corpuscular Hgb Conc 34.3 g/dL (32.0-36.0); Mean Corpuscular Volume 84.8 fL (80.0-100.0); Mean Platelet Volume 10.3 fL (9.4-12.4); Monocytes # (auto) 0.44 K/uL (0.11-0.59); Monocytes % (auto) 6.7 %; Neutrophils # (auto) 4.18 K/uL (1.40-6.50); Neutrophils % (auto) 63.2 %; Platelet Count 141 K/uL (130-400); RDW Coefficient of Variation 14.1 % (11.5-14.5); RDW Standard Deviation 43.3 fL (36.4-46.3); White Blood Count 6.61 K/ul (4.8-10.8)
[2025-01-25 08:00] LABS: BUN Creatinine Ratio 13.5 (10-20); Calcium 8.8 mg/dl (8.6-10.3); Creatinine Clr Calc Pharmacy 110.9 ml/min; Potassium 3.5 mmol/L (3.5-5.1)
[2025-01-25] MEDS: LANTUS PER UNIT CHARGE SC SCH (08:09)
[2025-01-25] MEDS: metFORMIN HCL 500 MG TAB PO SCH (08:09)
--- NOTE | 2025-01-25 08:23 | Hospitalist Progress Note ---
Date of Service January 25, 2025 Assessment & Plan Plan Colin is a 70 year old man with a pmh of CAD s/p stent, OR in 2003, HLD, HTN, aflutter/afib, depression, and BPH presenting with 3 month hx nausea, fatigue, dizziness, polydipsia, polyuria, and related 35 lb weight loss secondary to new T2DM diagnosis with A1C of 15.3. #Hyperglycemia secondary to new diagnosis of DMT2 - POC glucose 427 at admission & A1C 15.3, not in DKA. Sugars down to 215 at d ischarge. - per pharmacy, carb ratio of 1:5, correction factor of 15. - will d/c with long-acting insulin, short-acting insulin, metformin. Followup outpatient for CGM approval with insurance & initiation of AZAEL/ARB for kidney protection. Patient lacks a smartphone for CGM manuel. Consider jaurdiance, GLP- 1/GIP #Dysuria with increased urination - urinalysis negative for nitrates or leukocytes. + ketones and glucose, pending urine culture. - dysuria has resolved after glucose control #Paraesthesias of R leg - pt reports paraesthesias of R leg since stent placement in 2003. Lower extremity duplex showed normal ankle brachial index, measuring 1.17 on the R and 1.09 on the left - lumbar xray showed osseous demineralization, loss of intervertebral disc space height L1-L4 & L5-S1, osteophytes at L2-L5 with neuroforaminal stenosis, and degenerative changes of SI joints. No compression fracture. - paraesthesias are likely secondary to stenosis and degenerative changes. Consider outpatient steroid injection in conjunction with weight loss. #Constipation - pt reports normal BM for him is every 3-4 days but stool quantity has decreased, started miralax. Continue stool softeners outside of hospital #Skin lesion on back - irritated seborrheic keratosis vs squamous cell carcinoma, recommend biopsy and outpatient assessment. Admission and Anticipated Discharge Date Admission Date: January 24, 2025 Results & Data Results & Data Vital Signs (Past 12 Hours) Vital Signs Temp Pulse Resp BP Pulse Ox O2 Del Method 01/25/25 07:46 36.9 C 64 20 122/75 96 Room Air 01/25/25 03:40 36.7 C 64 18 95/67 L 98 Room Air 01/24/25 23:30 36.7 C 64 18 131/75 98 Room Air
--- NOTE | 2025-01-25 11:41 | Pharmacy Report ---
Pharmacy Glycemic Short Note 2 - Date of Service January 25, 2025 - Glycemic Short BSG Results (Last 24 hours): 01/24/25 01/24/25 01/24/25 11:33 11:34 14:08 Glucose POC Glucose 312 H* 330 H* 210 H 01/24/25 01/24/25 01/25/25 16:14 20:07 07:21 Glucose 209 H POC Glucose 167 H 238 H 01/25/25 07:25 Glucose POC Glucose 215 H OUTPATIENT ANTIDIABETIC REGIMEN: * none * HbA1c 15.3% (01/23/25) ASSESSMENT: 01/25 * Colin received 124 units of insulin yesterday (50 were basal, 10 IV regular bolus, and 64 bolus) * Fasting BSG this AM elevated, expect some basal deficiency with degree of A1c elevation, will reduce AM dose by 20% (approximately 0.35 units/kg) and allow for additional basal at bedtime if needed up to a weight based stress of 3. * No changes to NovoLog at this time, BSGs are improving and primary team also added metformin 500mg BIDM to regimen. No glycemic stressors noted. 01/24 * Colin is a 70 year old male admitted with constipation, nausea, weight loss with a diagnosis of new onset diabetes mellitus. Pharmacy has been consulted to assist with glycemic management while inpatient. * Fasting BSG this AM elevated, received 20 units of Lantus early this morning after an IV bolus yesterday evening. Hesitant to give more Lantus this AM, but BSGs still elevated and increased further at lunchtime. Tightened NovoLog to a weight based stress of 3 and Lantus at a weight based stress of 2. Additional IV bolus given to help bring down BSGs with lunch. PLAN FOR INPATIENT GLYCEMIC CONTROL: * Basal insulin * Lantus 40 units SQ daily * Lantus 0-20 units SQ HS based on BSG (see eMAR for additional details) * Bolus insulin * NovoLog per scale ACHS or Q6hrs while NPO * Goal Range: Low 110 mg/dL - High 180 mg/dL * Correction Factor: 15 mg/dL/unit * Nutritional / Prandial insulin per carb ratio of 1 unit per 5 grams CHO consumed
--- NOTE | 2025-01-25 13:17 | Discharge Summary ---
Date of Service January 25, 2025 Admission HPI Per Admitting Provider 70-year-old male PMHx CAD s/p stent, cardiomyopathy, HTN, HLD, A- flutter/paroxysmal A-fib, depression, hypothyroidism, and BPH presenting for 3 months of constipation as well as 32 pound weight loss. 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 He was having intense dry-heaving since that time, stating that every once in awhile he will have phlegm come up but no true emesis. He does have occasional abdominal pain, and constipation stating that he has a BM every 3-4 days, then he will go 3-4 times in a day and continue this pattern. He has some LLQ abdominal pain at time of admission, stating it is only present when being pushed on. He does have R flank pain from a recent fall in his bathroom where he states that his leg fell asleep and when he went to turn around his leg gave out on him and he fell backwards. He is having some pain here but it is a 2/10 on the pain scale. He has some numbness in his RLE at times if he is resting on it. States that he has some dysuria, thinking that he cut the end of his penis when wiping it with toilet paper. He states this only hurts when he urinates. No LUTS otherwise. He does feel more thirsty than usual and has had a decreased appetite since he has been so nauseous. Has SOB with exertion, not at rest. No CP, palpitations, diarrhea, LUTS, URI symptoms, F/C, syncope, or recent sick contacts. Does have family history of T2DM. ED evaluation reveals CBC without leukocytosis, H&H 13.4/39.4; VBG's pH 7.51, PCO2 36; CMP sodium 128, chloride 90, AG 12, initial glucose 424, repeat 396; bilirubin 1.9, alkaline phosphatase 134; troponin 18.9; TSH 1.623; UA with presence of glucose, ketones, and urobilinogen; CTAP no acute findings; CXR bronchitis but no consolidation or pleural effusion; EKG atrial paced rhythm and low voltage QRS at 62 bpm.; Provided with 2L NSS and 10 units of regular insulin IV in ED. Please see Dr. Swanson's attestation for adjustments/additions to treatment plan. Admission Exam Per Admitting Provider General: No acute distress Skin: Warm and dry Head: Normocephalic, atraumatic Eyes: PERRL, conjunctivae clear, sclera non-icteric ENT: External ear and ear canal without swelling; nose atraumatic; fair dentition, tongue normal appearance, pharynx normal Neck: Supple, no LAD Cardio: RRR, no M/G/R, S1 and S2 normal Resp: No respiratory distress, Lungs CTA in all lobes bilaterally, no wheezes, rales, or rhonchi Abdomen: Soft, symmetric, slight tenderness to palpation LLQ, mildly distended; No masses or hepatosplenomegaly; Bowel sounds normoactive MSK: No deformities; pulses palpable and equal; no edema. Neuro: Awake, alert; Sensation intact bilaterally; CN grossly intact Psych: Appropriate mood and affect; good judgement and insight. Principal Diagnosis Hyperglycemia/new T2DM Discharge Exam General: patient resting comfortably, NAD, non-toxic in appearance, answers questions appropriately. Skin: warm, dry, intact HEENT: NC/AT, anicteric sclera, conjunctiva without injection, moist mucus membranes. Heart: +S1/S2, regular, no m/r/g Lungs: equal air entry bilaterally, no rales/rhonchi/wheezes Abd: +BS, soft, NT/ND Ext: warm, no clubbing/cyanosis or edema, Melody's neg. Neuro: nonfocal, speech intact, no facial droop, moving all extremities. Discharge Data Allergies Allergy/AdvReac Type Severity Reaction Status Date / Time morphine AdvReac Intermediate Nausea/vomi Verified 10/07/24 15:22 ting Consultations 01/24/25 00:23 ED Decision to Admit Stat Ordered Studies 01/23/25 21:46 CT Abd and Pelvis [CT abd pelvis IV con only] Stat 01/24/25 02:59 US doppler leg [US arterial duplex LE RT] Routine Hospital Course (1) Hyperglycemia due to diabetes mellitus: (2) Constipation: (3) Diabetes mellitus, new onset: (4) Heart failure with improved ejection fraction (HFimpEF): (5) CAD (coronary artery disease): (6) Status post placement of cardiac pacemaker: Plan Colin is a 70 year old man with a pmh of CAD s/p stent, [place] in 2003, HLD, HTN, aflutter/afib, depression, and BPH presenting with 3 month hx nausea, fatigue, dizziness, polydipsia, polyuria, and 35 lb weight loss secondary to new T2DM diagnosis with A1C of 15.3. #Hyperglycemia secondary to new diagnosis of DMT2 - POC glucose 427 at admission, now 266 - A1C 15.3, previously 6.6 in 2021 but not treated with medication - Anion gap 12, Na - 128, Cl - 90, replenished with LR. - Pharmacy is managing his insulin with glucose goals of 110-180 - cosmetology educator consulted, petroleum geologist consulted - pt is resistant to injectables due to fear of needs - can trial metformin, AZAEL when sugars are steadier - contact insurance for CGM approval. Patient lacks a smartphone for CGM manuel #Constipation - pt reports normal BM for him is every 3-4 days but stool quantity has decreased - last BM 2 days prior - start miralax #CAD/Afib - EKG essentially unchanged from October - atrially paced at 62. - continue home meds of amiodarone and Eliquis #burning urination with increased urination - urinalysis negative for nitrates or leukocytes. + ketones and glucose. - hx of BPH - can secondary to glycosuria or UTI without bacteremia on UA, culture urine to check for bacterial growth #Paresthesias of R leg - pt reports R leg falls asleep often with numbness and tingling, not unique to current hospitalization. Pt noted that he has had this since stent placement through R femoral years ago. No edema, erythema. Palpable pulses. - lower extremity duplex showed normal ankle brachial index, measuring 1.17 on the R and 1.09 on the left - low concern for cellulitis and DVT given physical exam and blood thinner at baseline - Can be secondary to diabetic neuropathy or stem from lower back. Consider outpatient followup Total Time Total Time Spent Total Time Spent (In Minutes): See attending attestation Discharge Plan Discharge Items Patient Disposition: Home - Self-Care Reason For Visit: HYPOGLYCEMIA Discharge Diagnosis: Hyperglycemia/new T2DM diagnosis Condition on Discharge: Good Activity: Per Instructions section Non-emergency contact: Primary Care Provider Call non-emergency contact if: your symptoms worsen and your pain is not controlled Follow-up/Referrals: Wilman Beach PA-C [Primary Care Provider] - Kaitlyn Amado PA-C [Physician Primary Montessori Teacher] - 02/06/25 9:00 am (Endocrine appointment) Diet: Regular Addtl Attending Provider Instructions: You were admitted to the hospital for nausea, vomiting and GI upset for the past 3 months. While in the hospital, labs were completed showing that your HbA1c had increased to 15.3 and the last check that had been cited was a reading of 6.6 back in 2020. It is likely that your symptoms are related to this new finding of uncontrolled type 2 diabetes mellitus. This condition can cause kidney dysfunction and cardiac problems when your sugars are uncontrolled and thus it is important to begin watching your sugars closely while at home especially . While you were at the hospital several teams including the pharmacy, diabetes, and case management teams worked with our hospitalist team to create a regimen for you that will allow you to control your sugars while you are at home. This regimen is detailed below: 45 units of Lantus daily, please administer this medication as you were taught by the assistant health educator with the corresponding pen-needle. The pen containing this medication and the needles to administer this medication have been supplied to your pharmacy. Please discard each needle after use, they are one use only. Metformin 500mg to be taken twice daily, one tablet upon waking and one tablet before bed. This has been supplied to your pharmacy OneTouch Verio test strips and lancets: These have also been supplied to your pharmacy to check your blood glucose levels, you will prick your finger with the lancet and test the blood for sugar content with the test strip and blood glucose meter. These 3 items, test strips, lancets, and glucose meter have been sent to your pharmacy. Please discard each lancet and test strip after use, they are one use only. All of these supplies have been sent to your pharmacy and will be able for you to potato picker around 5-6PM tomorrow. Please potato picker these supplies and begin your metformin twice a day, twice a day blood sugar checks, and once a day Lantus administration as outlined above. Continue to work on your diet and exercise, we discussed at length different eating habits to help you lower your sugars and also the importance of regular walking and exercise to improve your strength, I expect you to continue working on these aspects of your care with your PCP. A discharge summary will be sent to your primary care physician to ensure continuity of care. Please bring this discharge summary with you to your next office appointment so that your provider can review it at that time. Follow-up appointments: A follow-up appointment with your PCP is scheduled for February 02 at 3:40PM with Dr. Jory Frazier. Please arrive 15 minutes prior to your appointment time An appointment with [facility] endocrinology has been set up for you on 02/06 with Kaitlyn Amado at 9:00AM. Please arrive 15 minutes prior to your appointment time. Both of these appointments are located in the same building on [address] from [facility] Medications: Your medication list has been reviewed and reconciled upon discharge to ensure accuracy and continuity of care. An updated list of all your medications is included with your hospital discharge paperwork. Please review this list closely, and make note of any changes. Take your medications as instructed; do not skip a dose of your medicines. Make sure all of your doctors know every medicine you are taking (including gzck-cuj-cvklhwu medicines, vitamins, and supplements). Call your primary care provider before taking any new medicines (including swzf-wyi-emabfwh medicines, vitamins, and supplements), because some of these may interact with your current medications, or may make your symptoms worse. Tell your primary care provider if you cannot afford your medications. CONTACT YOUR PRIMARY CARE PROVIDER if you experience any of the following: Difficulty following your treatment plan, or difficulty taking medications CALL 911 OR GO TO THE EMERGENCY DEPARTMENT if you experience any of the following: Sudden, severe abdominal pain or nausea/vomiting Severe chest pain, or chest pain that radiates (moves) to your jaw or arm Sudden, severe shortness of breath or difficulty breathing Thank you for allowing us to participate in your care. Pending Studies at Discharge: No Stand-Alone Forms: My [employer], Smoking Cessation Medications and DC Order Prescriptions: New insulin glargine [Lantus Solostar U-100 Insulin] 100 unit/mL (3 mL) insulin pen 45 unit subcut QAM Qty: 15 0RF metformin 500 mg tablet 500 mg PO BID Qty: 60 0RF (DME) pen needle, diabetic 32 gauge x 5/32" needle See Rx Instructions .Route Qty: 100 0RF Rx Instructions: Use once daily (DME) blood-glucose meter [OneTouch Verio Flex meter] [facility] See Rx Instructions .Route Qty: 1 0RF Rx Instructions: As directed (DME) OneTouch Verio test strips Strip See Rx Instructions .Route Qty: 50 0RF Rx Instructions: Please use twice per day, once before first meal and once in everning before bed (DME) lancets [Onetouch Delica Safety Lancet] 30 gauge [facility] See Rx Instructions .Route Qty: 100 0RF Rx Instructions: Use twice daily once hen waking before breakfast and once in evening before bed Continued carvedilol 6.25 mg tablet 6.25 mg PO BID Qty: 180 3RF Eliquis 5 mg tablet 5 mg PO BID@0600,1800 Qty: 180 3RF atorvastatin 80 mg tablet 80 mg PO QAM Qty: 90 3RF enalapril maleate 5 mg tablet 5 mg PO QAM Qty: 90 3RF amiodarone 200 mg tablet 200 mg PO QPM Qty: 90 3RF furosemide 40 mg tablet 80 mg PO BID Qty: 360 3RF levothyroxine 100 mcg tablet 100 mcg PO DAILY ezetimibe [Zetia] 10 mg tablet 10 mg PO DAILY Qty: 90 3RF tamsulosin 0.4 mg capsule 0.4 mg PO BID Patient Comments: Patient states he takes all meds everyother day aspirin [Adult Low Dose Aspirin] 81 mg tablet,delayed release (DR/EC) 81 mg PO DAILY Qty: 30 0RF Discharge Orders: Discharge Order (Routine); Ordered 01/25/25 Ordered By: Volodymyr Tate Admission Data Admit Date/Time: 01/24/25 01:42 Attending Provider: Keren Velasquez Admit Provider: Ehsan Swanson Primary Care Provider: Wilman Beach Other Providers: Ehsan Swanson Other Interventions: Discharge Summary Assessment (RN) Last Done: 01/25/25 15:45 Supervising Physician Co-Signing Physician Notes I personally examined the patient and verified donaldson points of history and exam, discussed case, and agree with decision making and plan documented by Dr. Tate. Patient is a 70-year-old male with complex cardiac history on admission for new diagnosis with diabetes. A1c 15.3%, symptomatic with related weight loss, fatigue, polydipsia/polyuria due to hyperglycemia. Patient had improvement of blood glucose levels with insulin therapy, potassium repleted, BGs improved. Patient was discharged on 45 units of Lantus daily, he was educated on how to administer this to himself. We also reviewed blood glucose testing with patient, prescriptions for testing kit were ordered to pharmacy. Patient will most definitely benefit from CGM, he will need both sensors and a payroll lead as he does not have a smart phone, not ordered as will require prior auth. Patient was also discharged on metformin 500 mg twice daily. He is advised to follow-up within 1 week to review blood sugars and next steps. He would likely benefit from addition of GLP-1 and/or SGLT2, should consider ACEi/ARB, he is on high intensity statin. Patient will follow-up at [facility] if he is unable to get in with his physician close to home. He will benefit from continued diabetic education. Total attending time 42 minutes Resident Activity Tracking Resident Involvement: Resident Care Provided Care Provided: Adult Hospital Medicine
--- NOTE | 2025-01-25 15:13 | XCELERA ---
[id number] [id number]
[2025-01-25 15:16] VITALS: BP 102/61; PULSE 67; RESP 20; TEMP 98.4; O2SAT 96
--- NOTE | 2025-01-25 16:00 | Electrocardiogram Report ---
Test Reason : Blood Pressure : */* mmHG Vent. Rate : 62 BPM Atrial Rate : 62 BPM P-R Int : 202 ms QRS Dur : 104 ms QT Int : 442 ms P-R-T Axes : * -4 41 degrees QTcB Int : 448 ms Atrial-paced rhythm Low voltage QRS Abnormal ECG When compared with ECG of 07-Oct-2024 15:13, No significant change was found Confirmed by Javier Holman ([id number]) on 01/25/2025 4:00:00 PM Referred By: REFERRED SELF Confirmed By: Javier Holman
== END 2025-01-25 16:55 | disposition home or self-care (01) ==
LOC: ED 20:56 → 2S 20:56 → SUATTDRO 01-24 01:42 → 2S 01-24 05:30